=== PATIENT | male | born 1935 | race Caucasian/White ===

== ENCOUNTER 2020-09-12 15:32 | Observation (INO) ==
--- NOTE | 2020-09-12 17:38 | Internal Med History&Physical ---
HPI History of Present Illness Patient information: Note initiated : 09/12/20 at 5:27 pm Service Date, if different from initiated Date: [] Patient: Ildefonso Forman Jr 84 y/o M admitted on 09/12/20 for Pyelonephritis. Chief Complaint: Flank pain due to Kidney stone History of present illness: Mr. Dickson Jarrell is a 84 year old male transferred from [facility] emergency room for management of obstructed kidney stone. Patient has history of kidney stones, hypertension, history of DVT on Apixaban, & CKD III with baseline Cr 1.5 presented to [facility] ED with right flank pain that started yesterday noon. Pain was 7/10 intensity radiated to his groin. It was associated with nausea but no vomiting. Patient denies fever and chills. At [facility] emergency room a CT scan of abdomen and pelvis showed obstructed kidney stone at the right UBJ junction with hydronephrosis. Patient transferred to our facility for urology consultation and cystoscopy. Patient has known history of BPH and kidney stone in the past. His last cystoscopy was October 2019 for right ureteral stone. Review of Systems All systems: reviewed and no additional remarkable complaints except as stated PFSH PFSH All Active Problems Chronic kidney disease (CKD) stage G3a/A3, moderately decreased glomerular filtration rate (GFR) between 45-59 mL/min/1.73 square meter and albuminuria creatinine ratio greater than 300 mg/g (Chronic) Skin cancer (Chronic) Solar elastosis (Chronic) Sebaceous cyst (Chronic) DVT (deep venous thrombosis) (Chronic) Lentigines (Chronic) Actinic keratosis (Chronic) History of prostate surgery (Chronic) History of suprapubic catheter (Chronic) History of hernia repair (Chronic) History of tonsillectomy (Chronic) UTI (urinary tract infection) (Chronic) Gross hematuria (Chronic) Urinary bladder stone (Chronic) Benign hypertension with CKD (chronic kidney disease) stage III (Chronic) Enlarged prostate with lower urinary tract symptoms (LUTS) (Chronic) Vitamin D deficiency (Chronic) Iron deficiency (Chronic) Persistent proteinuria (Chronic) Back pain (Chronic) Inguinal hernia (Chronic) Osteoarthritis (Chronic) BPH (benign prostatic hyperplasia) (Chronic) Benign essential hypertension (Chronic) Hemangioma (Chronic) Polycythemia (Chronic) 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 (Chronic) 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) On warfarin therapy (Chronic) Urethral calculus (Chronic) Edema (Chronic) Cellulitis (Chronic) Cardiomegaly (Chronic) Deep vein thrombosis of left lower extremity (Chronic) Murmur (Chronic) GERD (gastroesophageal reflux disease) (Chronic) Degeneration of lumbar intervertebral disc (Chronic) Carotid atherosclerosis (Chronic) Diastolic heart failure (Chronic) Hydroxyurea adverse reaction (Chronic) PVD (peripheral vascular disease) (Chronic) Foot ulcer (Chronic) History of amputation of toe (Chronic) Leg pain (Chronic) Medical History Actinic keratosis Back pain Benign essential hypertension BPH (benign prostatic hyperplasia) Cardiomegaly Carotid atherosclerosis Cellulitis Deep vein thrombosis of left lower extremity Degeneration of lumbar intervertebral disc Diastolic heart failure DVT (deep venous thrombosis) Edema Foot ulcer GERD (gastroesophageal reflux disease) Gross hematuria Hemangioma History of amputation of toe Bilateral great toes Hydroxyurea adverse reaction 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 Inguinal hernia Lentigines 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 Murmur On warfarin therapy Osteoarthritis Polycythemia PVD (peripheral vascular disease) Sebaceous cyst Skin cancer Solar elastosis Urethral calculus UTI (urinary tract infection) Surgical History History of angioplasty Right Foot History of hernia repair History of prostate surgery History of suprapubic catheter History of tonsillectomy Family History Mother Leukemia Father Stroke Brother Stroke Heart disease Social History marital status: occupational status: retired alcohol intake frequency: does not drink substance use type: does not use MEDS/ALLERGIES Home Medications and Allergies Home Medications Medication Instructions Recorded Confirmed Type atorvastatin 20 mg PO HS 05/13/17 09/12/20 History lisinopril 20 mg PO DAILY 05/13/17 09/12/20 History pantoprazole 40 mg PO QAMAC 05/13/17 09/12/20 History aspirin 325 mg PO DAILY #30 tab 08/02/17 09/12/20 Rx cholecalciferol (vitamin D3) 50 2,000 unit PO QDAY #90 cap 11/29/17 09/12/20 Rx mcg (2,000 unit) capsule apixaban 5 mg tablet 5 mg PO BID tab 03/31/19 09/12/20 History gabapentin 300 mg capsule 300 mg PO BID cap 03/31/19 09/12/20 History hydrochlorothiazide 25 mg tablet 25 mg PO DAILY tab 03/31/19 09/12/20 History hydroxyurea 500 mg capsule 500 mg PO DAILY cap 03/31/19 09/12/20 History tamsulosin 0.4 mg capsule 0.4 mg PO QDAY cap 03/31/19 09/12/20 History docusate sodium 100 mg capsule 100 mg PO QDAY 10/03/19 09/12/20 History finasteride 5 mg tablet 5 mg PO QDAY 10/03/19 09/12/20 History amlodipine 5 mg tablet 5 mg PO BID #180 tab 05/23/20 09/12/20 Rx Allergies Allergy/AdvReac Type Severity Reaction Status Date / Time doxazosin Allergy Severe Unknown Verified 05/23/20 08:48 fish derived Allergy Unknown Unknown Verified 05/23/20 08:48 niacin Allergy Unknown Unknown Verified 05/23/20 08:48 EXAM Constitutional Vitals: Temp Pulse Resp BP Pulse Ox 98.3 F 73 16 134/67 93 09/12/20 15:48 09/12/20 15:48 09/12/20 15:48 09/12/20 15:48 09/12/20 15:48 General appearance: average body habitus, cooperative (Pleasant elderly male in no distress.) and no acute distress Head Head exam: Present atraumatic, normal inspection and normocephalic Eye Eye exam: Present EOMI, normal appearance and PERRL Neck Neck exam: Present full ROM and normal inspection Respiratory Respiratory exam: Present normal respiratory exam and CTAB Cardiovascular Cardiovascular exam: Present normal rate and rhythm, +S1 and +S2; Absent diastolic murmur and systolic murmur GI/Abdominal GI/Abdominal exam: Present normal bowel sounds and soft; Absent hernia, mass, rebound and tenderness Extremities Exam Extremities exam: Present full ROM, normal capillary refill and normal inspection; Absent calf tenderness and joint swelling Back Exam Back exam: Present full ROM Neurological Exam Neurological exam: Present alert, CN II-XII intact, oriented X3 and reflexes normal Psychiatric Psychiatric exam: Present normal affect and normal mood Skin Skin exam: Present dry, normal color and warm A/P Narrative A/P Narrative: 84 years old pleasant male with known history of kidney stone in the past admitted with right flank pain and obstructed kidney stone on the right with hydronephrosis: # Obstructed 9x5mm renal calculi at R UBJ with Mod Hydronephrosis - Pain control, IVF, IV Anbx. Urology consult for cystoscopy and stent placement in the morning #Asymptomatic bacteriuria-UA at [facility] showed positive nitrate and LE and white blood cell. Since going for procedure will cover with IV Rocephin. - WBC 18.5 at [facility] - Follow Ux from [facility]. #History of DVT and peripheral arterial disease. -Continue Eliquis without interruption. Will discuss with Dr. Aguirre the urologist # CKD III with baseline Cr 1.5 - Now Cr is 2.2. Cont IVF and follow BMP. Pt follows by [facility]. # HTN. Resume home medication. # BPH. S/p TURP in past. -Continue Flomax and finasteride. DVT prophylaxis: Continue Eliquis CODE STATUS: Full Plan of care discussed with patient and nursing staff. Time Spent With Patient Time: Total time spent is greater than 50% in coordination of care (as documented) at patient's floor/unit and/or counseling patient: QUALITY VTE Deep Vein Thrombosis/Pulmonary Embolism Present on Admission: No
[2020-09-12] MEDS ORDERED: ACETAMINOPHEN 325 MG TABLET PO PRN (18:33)
[2020-09-12] MEDS ORDERED: ONDANSETRON 4 MG/2 ML VIAL IV PRN (18:33)
[2020-09-12] MEDS ORDERED: HYDROcodone/APAP 5/325MG TABLET PO PRN (18:33)
[2020-09-12] MEDS ORDERED: ONDANSETRON 4 MG ODT TABLET SL PRN (18:38)
[2020-09-12] MEDS ORDERED: CALCIUM CARBONATE 500 MG TAB.CHEW CHEWED PRN (18:38)
[2020-09-12] MEDS ORDERED: HYDROmorphone 1 MG/ML SYRINGE IV PRN (18:38)
[2020-09-12] MEDS ORDERED: cefTRIAXone 1 GM in DEXTROSE 5% IN WATER 50 ML IV SCH (18:40)
[2020-09-12] MEDS: 0.9 % SODIUM CHLORIDE 1,000 ML IV SCH (18:52)
[2020-09-12] MEDS ORDERED: cefTRIAXone 1 GM VIAL ONE (19:16)
[2020-09-12] MEDS: cefTRIAXone 1 GM VIAL IV SCH (19:34)
[2020-09-12] MEDS ORDERED: ATORVASTATIN 20 MG TABLET PO SCH (21:00)
[2020-09-12] MEDS ORDERED: SENNOSIDES 1 TABLET PO SCH (21:00)
[2020-09-12] MEDS: APIXABAN 5 MG TABLET PO SCH (22:00)
[2020-09-12] MEDS: amLODIPine 5 MG TABLET PO SCH (22:00)
[2020-09-12] MEDS: GABAPENTIN 300 MG CAPSULE PO SCH (22:00)
[2020-09-12] MEDS: 0.9 % SODIUM CHLORIDE 10 ML SYRINGE IV SCH (22:00)
[2020-09-12] MEDS: DOCUSATE SODIUM 100 MG CAPSULE PO SCH (22:00)
[2020-09-13] MEDS: 0.9 % SODIUM CHLORIDE 1,000 ML IV SCH ×2 (03:38→13:46)
[2020-09-13] MEDS: 0.9 % SODIUM CHLORIDE 10 ML SYRINGE IV SCH ×2 (05:25→14:03)
[2020-09-13 06:36] LABS: Hematocrit 29.7 % (41.0-55.0); Hemoglobin 9.6 g/dL (13.5-16.5); Mean Cell Volume 119.8 fL (80.0-100.0); Mean Corpuscular HGB Conc 32.3 g/dL (31.0-36.0); Mean Platelet Volume 10.5 fL (7.4-10.4); Platelet Count 383 K/mcL (140-440); RBC 2.48 M/mcL (4.50-5.90)
[2020-09-13 07:18] LABS: Blood Urea Nitrogen 55 mg/dL (8-23); Calcium 8.1 mg/dL (8.6-10.4); Carbon Dioxide 22 mmol/L (22-30); Chloride 104 mmol/L (96-108); Glomerular Filtration Rate 19; Glucose 111 mg/dL (70-105)
[2020-09-13] MEDS ORDERED: PANTOPRAZOLE 40 MG TABLET PO SCH (07:30)
[2020-09-13 08:10] LABS: Anisocytosis 2+ (None Seen); Eosinophils % (Manual) 1 % (0-7); Lymphocytes % 1 % (15-49); Macrocytosis 4+ (None Seen); Monocytes % (Manual) 1 % (1-12); Platelet Estimate NORMAL (Normal); RBC Morphology ABNORMAL (Normal); Segmented Neutrophils % 97 % (38-78)
[2020-09-13] MEDS: amLODIPine 5 MG TABLET PO SCH (08:21)
--- NOTE | 2020-09-13 08:46 | General Surgery Consult Note ---
HPI Data of Consult Consult date: 09/13/20 Requesting physician: Kvng Sandhu Primary Care Provider: Zaida Delgado Consult Narrative Patient Information: Note initiated : 09/13/20 at 8:42 am Service Date, if different from initiated Date: [] Patient: Ildefonso Forman Jr 84 y/o M admitted on 09/12/20 for Pyelonephritis. Chief Complaint: [] Chief complaint: Right flank pain Reason for consult: Same cc:: CC: Kvng Sandhu This 84-year-old male has a history of multiple stones requiring surgical intervention in the past. He has frequently been lost to follow-up in the inte rim between neck acute interventions. He was stented for a distal 4 mm stone in October 2018 but treated elsewhere. There is a note of a bladder stone in October 2019 with no record of what had been done for that and he does not recall. In the emergency room he had an elevated white count. Prior to transfer from [facility] the message I received was that he had sign of infection in the urine and was transferred here because of infection and stone. In reviewing what records we have access to he had an extremely large prostate in the past creating difficulties in catheterizing the ureter. The CT shows a 5 by 9 mm ureteropelvic junction stone. He has a 14,000 white count with a history of chronic kidney disease. His current BUN is 55 with a creatinine of 2.8 and a GFR of 19. His uric acid is 11.3 and there is mention in old records of radiolucent stones. He was transferred here for IV antibiotics and stenting if possible. PFSH PFSH All Active Problems (Updated 09/13/20 @ 08:57 by Herber Hernandez MD) Ureteral stone (Acute) Chronic kidney disease (CKD) stage G3a/A3, moderately decreased glomerular filtration rate (GFR) between 45-59 mL/min/1.73 square meter and albuminuria creatinine ratio greater than 300 mg/g (Chronic) Skin cancer (Chronic) Solar elastosis (Chronic) Sebaceous cyst (Chronic) DVT (deep venous thrombosis) (Chronic) Lentigines (Chronic) Actinic keratosis (Chronic) History of prostate surgery (Chronic) History of suprapubic catheter (Chronic) History of hernia repair (Chronic) History of tonsillectomy (Chronic) UTI (urinary tract infection) (Chronic) Gross hematuria (Chronic) Urinary bladder stone (Chronic) Benign hypertension with CKD (chronic kidney disease) stage III (Chronic) Enlarged prostate with lower urinary tract symptoms (LUTS) (Chronic) Vitamin D deficiency (Chronic) Iron deficiency (Chronic) Persistent proteinuria (Chronic) Back pain (Chronic) Inguinal hernia (Chronic) Osteoarthritis (Chronic) BPH (benign prostatic hyperplasia) (Chronic) Benign essential hypertension (Chronic) Hemangioma (Chronic) Polycythemia (Chronic) 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 (Chronic) 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) On warfarin therapy (Chronic) Urethral calculus (Chronic) Edema (Chronic) Cellulitis (Chronic) Cardiomegaly (Chronic) Deep vein thrombosis of left lower extremity (Chronic) Murmur (Chronic) GERD (gastroesophageal reflux disease) (Chronic) Degeneration of lumbar intervertebral disc (Chronic) Carotid atherosclerosis (Chronic) Diastolic heart failure (Chronic) Hydroxyurea adverse reaction (Chronic) PVD (peripheral vascular disease) (Chronic) Foot ulcer (Chronic) History of amputation of toe (Chronic) Leg pain (Chronic) Medical History Actinic keratosis Back pain Benign essential hypertension BPH (benign prostatic hyperplasia) Cardiomegaly Carotid atherosclerosis Cellulitis Deep vein thrombosis of left lower extremity Degeneration of lumbar intervertebral disc Diastolic heart failure DVT (deep venous thrombosis) Edema Foot ulcer GERD (gastroesophageal reflux disease) Gross hematuria Hemangioma History of amputation of toe Bilateral great toes Hydroxyurea adverse reaction 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 Inguinal hernia Lentigines 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 Murmur On warfarin therapy Osteoarthritis Polycythemia PVD (peripheral vascular disease) Sebaceous cyst Skin cancer Solar elastosis Urethral calculus UTI (urinary tract infection) Surgical History History of angioplasty Right Foot History of hernia repair History of prostate surgery History of suprapubic catheter History of tonsillectomy Family History Mother Leukemia Father Stroke Brother Stroke Heart disease Social History marital status: occupational status: retired alcohol intake frequency: does not drink substance use type: does not use MEDS/ALLERGIES Home Medications and Allergies Home Medications Medication Instructions Recorded Confirmed Type atorvastatin 20 mg PO HS 05/13/17 09/12/20 History lisinopril 20 mg PO DAILY 05/13/17 09/12/20 History pantoprazole 40 mg PO QAMAC 05/13/17 09/12/20 History aspirin 325 mg PO DAILY #30 tab 08/02/17 09/12/20 Rx cholecalciferol (vitamin D3) 50 2,000 unit PO QDAY #90 cap 11/29/17 09/12/20 Rx mcg (2,000 unit) capsule apixaban 5 mg tablet 5 mg PO BID tab 03/31/19 09/12/20 History gabapentin 300 mg capsule 300 mg PO BID cap 03/31/19 09/12/20 History hydrochlorothiazide 25 mg tablet 25 mg PO DAILY tab 03/31/19 09/12/20 History hydroxyurea 500 mg capsule 500 mg PO DAILY cap 03/31/19 09/12/20 History tamsulosin 0.4 mg capsule 0.4 mg PO QDAY cap 03/31/19 09/12/20 History docusate sodium 100 mg capsule 100 mg PO QDAY 10/03/19 09/12/20 History finasteride 5 mg tablet 5 mg PO QDAY 10/03/19 09/12/20 History amlodipine 5 mg tablet 5 mg PO BID #180 tab 05/23/20 09/12/20 Rx Allergies Allergy/AdvReac Type Severity Reaction Status Date / Time doxazosin Allergy Unknown Unknown Verified 09/12/20 19:19 fish derived Allergy Unknown Unknown Verified 05/23/20 08:48 niacin Allergy Unknown Unknown Verified 05/23/20 08:48 Physical Examination Vital Signs Vital signs: Temp Pulse Resp BP Pulse Ox 98.8 F 58 L 20 127/72 90 09/13/20 07:08 09/13/20 07:08 09/13/20 07:08 09/13/20 07:08 09/13/20 07:08 Eyes Eye exam: PERRL ENT ENT exam: normal pinna and normal nares Head Head exam IM: Present normal inspection Cardiovascular Cardiovascular exam IM: Present normal rate and rhythm Respiratory Respiratory exam: normal respiratory effort Abdomen Abdomen: Present soft and non tender Integumentary Integumentary: Present no rash Musculoskeletal Musculoskeletal: Present normal gait Results Labs Result diagrams: 09/13/20 05:24 09/13/20 05:24 Labs: Abnormal lab results 09/13/20 09/13/20 Range/Units 05:24 05:24 WBC 14.0 H (4.5-11.0) K/mcL RBC 2.48 L (4.50-5.90) M/mcL Hgb 9.6 L (13.5-16.5) g/dL Hct 29.7 L (41.0-55.0) % MCV 119.8 H (80.0-100.0) fL MCH 38.7 H (26.0-34.0) pg RDW 18.0 H (11.5-14.5) % MPV 10.5 H (7.4-10.4) fL Seg Neutrophils % 97 H (38-78) % Lymphocytes % 1 L (15-49) % RBC Morphology Abnormal A (Normal) Anisocytosis 2+ A (None Seen) Macrocytosis 4+ A (None Seen) BUN 55 H (8-23) mg/dL Creatinine 2.8 H (0.7-1.2) mg/dL Glucose 111 H (70-105) mg/dL Calcium 8.1 L (8.6-10.4) mg/dL Diabetes panel 09/13/20 Range/Units 05:24 Sodium 137 (133-145) mmol/L Potassium 5.0 (3.3-5.1) mmol/L Chloride 104 (96-108) mmol/L Carbon Dioxide 22 (22-30) mmol/L BUN 55 H (8-23) mg/dL Creatinine 2.8 H (0.7-1.2) mg/dL Glucose 111 H (70-105) mg/dL Calcium 8.1 L (8.6-10.4) mg/dL Calcium panel 09/13/20 Range/Units 05:24 Calcium 8.1 L (8.6-10.4) mg/dL Pituitary panel 09/13/20 Range/Units 05:24 Sodium 137 (133-145) mmol/L Potassium 5.0 (3.3-5.1) mmol/L Chloride 104 (96-108) mmol/L Carbon Dioxide 22 (22-30) mmol/L BUN 55 H (8-23) mg/dL Creatinine 2.8 H (0.7-1.2) mg/dL Glucose 111 H (70-105) mg/dL Calcium 8.1 L (8.6-10.4) mg/dL Adrenal panel 09/13/20 Range/Units 05:24 Sodium 137 (133-145) mmol/L Potassium 5.0 (3.3-5.1) mmol/L Chloride 104 (96-108) mmol/L Carbon Dioxide 22 (22-30) mmol/L BUN 55 H (8-23) mg/dL Creatinine 2.8 H (0.7-1.2) mg/dL Glucose 111 H (70-105) mg/dL Calcium 8.1 L (8.6-10.4) mg/dL All other labs normal. A/P Assessment and plan (1) Ureteral stone: Status: Acute Comment: Cystoscopy with right ureteral stent placement if possible. If cannot, will transfer for percutaneous nephrostomy (2) Chronic kidney disease (CKD) stage G3a/A3, moderately decreased glomerular filtration rate (GFR) between 45-59 mL/min/1.73 square meter and albuminuria creatinine ratio greater than 300 mg/g: Status: Chronic (3) BPH (benign prostatic hyperplasia): Status: Chronic (4) UTI (urinary tract infection): Status: Chronic Comment: IV antibiotics Time Spent With Patient Time: Total time spent is greater than 50% in coordination of care (as documented) at patient's floor/unit and/or counseling patient:
[2020-09-13] MEDS: DOCUSATE SODIUM 100 MG CAPSULE PO SCH (08:55)
[2020-09-13] MEDS ORDERED: ASPIRIN 325 MG ENTERIC COATED TABLET PO SCH (09:00)
[2020-09-13] MEDS ORDERED: HYDROXYUREA 500 MG CAPSULE PO SCH (09:00)
[2020-09-13] MEDS ORDERED: LISINOPRIL 20 MG TABLET PO SCH (09:00)
[2020-09-13] MEDS ORDERED: DOCUSATE SODIUM 100 MG CAPSULE PO SCH (09:00)
[2020-09-13] MEDS ORDERED: TAMSULOSIN 0.4 MG CAPSULE PO SCH (09:00)
[2020-09-13] MEDS ORDERED: FINASTERIDE 5 MG TABLET PO SCH (09:00)
[2020-09-13] MEDS ORDERED: SCOPOLAMINE 1 PATCH PATCH TOPICAL PRN (09:01)
[2020-09-13] MEDS: cefTRIAXone 1 GM VIAL IV SCH (10:00)
--- NOTE | 2020-09-13 10:39 | EKG ---
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 Measurements Intervals [place] Rate: 55 P: 4 MI: 240 QRS: -15 QRSD: 86 T: 71 QT: 416 QTc: 398 Interpretive Statements SINUS BRADYCARDIA LVH BY VOLTAGE FIRST-DEGREE A-V BLOCK Since previous ECG of 08-02-2017, NSC ABNORMAL Electronically Signed On 09-13-2020 10:39:10 PDT by Bennie Elena M.D. /store/[email or web address]/[id number]
[2020-09-13] MEDS ORDERED: DEXAMETHASONE 10 MG/ML VIAL ONE (12:13)
[2020-09-13] MEDS ORDERED: PROPOFOL 200 MG/20 ML VIAL IV ONE (12:13)
[2020-09-13] MEDS ORDERED: KETAMINE 50 MG/ML ML ONE (12:13)
[2020-09-13] MEDS ORDERED: GLYCOPYRROLATE 0.2 MG/ML VIAL IV ONE (12:13)
[2020-09-13] MEDS ORDERED: fentaNYL 100 MCG/2 ML VIAL IV ONE (12:13)
[2020-09-13] MEDS ORDERED: ONDANSETRON 4 MG/2 ML VIAL ONE (12:13)
[2020-09-13] MEDS ORDERED: MIDAZOLAM 2 MG/2 ML VIAL ONE (12:13)
[2020-09-13] MEDS ORDERED: LIDOCAINE HCL/PF 100 MG/5 ML SYRINGE IV ONE (12:13)
[2020-09-13] MEDS ORDERED: IOVERSOL 20 ML VIAL IJ ONE (12:28)
[2020-09-13] MEDS ORDERED: ONDANSETRON 4 MG/2 ML VIAL IV PRN (12:45)
[2020-09-13] MEDS ORDERED: ACETAMINOPHEN 1,000 MG/100 ML BAG IV ONE (12:45)
[2020-09-13] MEDS ORDERED: MEPERIDINE 25 MG/ML VIAL IV PRN (12:45)
[2020-09-13] MEDS ORDERED: IPRATROPIUM/ALBUTEROL 3 ML AMPUL.NEB NEB PRN (12:45)
[2020-09-13] MEDS ORDERED: LACTATED RINGERS 1,000 ML IV SCH (12:45)
[2020-09-13] MEDS ORDERED: fentaNYL 100 MCG/2 ML VIAL IV PRN (12:45)
--- NOTE | 2020-09-13 13:05 | Brief Operative Note ---
Brief Operative Note Date of procedure: 09/13/20 Pre-op diagnosis: Infected right stone Post-op diagnosis: other (Same with enlarged prostate) Procedure: Cystoscopy and attempted stent placement with stone pushback Grafts/Implants: No Anesthesia: GETA Findings: Unable to identify right ureteral orifice Complications: none Surgeon: Herber Hernandez Estimated blood loss (cc): 0 Tourniquet Time (Minutes): 0 Specimens Removed/Pathology: none sent Condition: stable Disposition: PACU
--- NOTE | 2020-09-13 13:13 | Operative Note ---
Operative Note Operative Note: Preop diagnosis--right UPJ stone with infection Surgeon--Herber Hernandez Operation performed--cystoscopy with attempted right stent placement Postop diagnosis--unable to identify right ureteral orifice Date of operation and dictation--September 13, 2020 Complications--none Specimen--none Blood loss--none Drain--none Indication--this 84-year-old male has a history of stones and an extremely large prostate. He has undergone a variety of different surgical procedures in a variety of different locations over the years. From 2 years ago there was a note stating that he had a right sided stone in the distal ureter but the operating surgeon was unable to access the orifice. This was because of an extremely large prostate with J hooking of the distal ureters. He presented to the emergency room yesterday with right flank and right lower quadrant abdominal pain with nausea and was found to have an obstructing UPJ stone measuring 5 x 9 mm with hydronephrosis. He is currently on Eliquis. The patient was transferred here from [facility] because he did not have a urologist. We tax intern do not have an interventional radiologist. He is brought to the operating room at this time to try and push the stone back and stent him. Description--the patient was placed on the operating table in a supine position and a timeout was called at which time we confirmed the patient, procedure, position and presence of antibiotic. Following satisfactory induction of general anesthesia he was prepped and draped in a lithotomy position. A 21 Ukrainian cystoscope was advanced under direct vision. The urethra was normal. Sphincter appeared normal. The prostate was extremely large with trilobar enlargement. There was evidence of previous TURP with a very tortuous proximal prostatic urethra. There was no identifiable trigone or orifice on either side. He had a heavily trabeculated bladder with cellule formation. The whole area was examined multiple times and neither orifice could be identified and in fact there was not even a suggestion that it might be there but just difficult to see. The procedure was discontinued because of failure to identify an orifice.
[2020-09-13] MEDS: GABAPENTIN 300 MG CAPSULE PO SCH (13:37)
[2020-09-13] MEDS: APIXABAN 5 MG TABLET PO SCH (13:38)
--- NOTE | 2020-09-13 14:10 | Internal Med Progress Note ---
SUBJECTIVE Subjective Patient information: Note initiated : 09/13/20 at 2:06 pm Service Date, if different from initiated Date: Patient: Ildefonso Forman Jr 84 y/o M admitted on 09/12/20 for Pyelonephritis. Chief Complaint: Flank pain Interval history: Patient is comfortable. Denies chest pain shortness of breath nausea vomiting. His pain is well controlled with current treatment Constitutional Vitals: Vital Signs Temp Pulse Resp BP Pulse Ox 99.3 F H 61 12 129/60 92 09/13/20 13:25 09/13/20 13:25 09/13/20 13:25 09/13/20 13:25 09/13/20 13:25 Period Temp Pulse Resp BP Sys/Sinha Pulse Ox Last 24 Hr 97.7 F-99.8 F 58-73 11-20 108-146/57-76 90-95 Intake and Output 09/13/20 09/13/20 09/13/20 05:59 13:59 21:59 Intake Total 1425 2020 Output Total 250 100 Balance 1175 1920 Intake & Output: Intake & Output 09/13/20 09/13/20 09/13/20 05:59 13:59 21:59 Intake Total 1425 2020 Output Total 250 100 Balance 1175 1920 Intake: IV 1000 1100 Sodium Chloride 0.9% 1,000 ml @ 1000 1000 125 mls/hr IV .Q8H [facility] Rx#: [id number] Oral 425 IV - Manual Only 920 Output: Void Amount 250 100 Other: Urine Appearance Clear Small Blood Clots Urine Color Bright Yellow Additional findings Additional findings: General: Pleasant elderly male in no distress. Awake alert oriented x3. No apparent distress HEENT: PERRLA, moist mucous membrane. Anicteric sclera Lungs: Clear to auscultation bilaterally. No crackles rhonchi or rales. Cardiovascular: Regular rate and rhythm. S1 + S2, no murmur gallop rub. No peripheral edema. No JVD GI: Abdomen soft, nontender, positive bowel sounds. No hepatosplenomegaly. No rebound tenderness. 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 Cranial nerves II through XII 12 grossly intact. Psychiatric: Normal mood and affect OBJ DATA Labs CBC & Chem 7: 09/13/20 05:24 09/13/20 05:24 Labs: Abnormal Lab Results 09/13/20 09/13/20 05:24 05:24 WBC 14.0 H RBC 2.48 L Hgb 9.6 L Hct 29.7 L MCV 119.8 H MCH 38.7 H RDW 18.0 H MPV 10.5 H Seg Neutrophils % 97 H Lymphocytes % 1 L RBC Morphology Abnormal A Anisocytosis 2+ A Macrocytosis 4+ A BUN 55 H Creatinine 2.8 H Glucose 111 H Calcium 8.1 L Meds: Medications Acetaminophen (Acetaminophen 325 Mg Tablet) 650 mg PO Q6HP PRN; Protocol PRN Reason: Per Pain Protocol/Fever > 101 Hydrocodone Bitart/Acetaminophen (Hydrocodone/Apap 5/325mg Tablet) 1 tab PO Q4HP PRN; Protocol PRN Reason: Per Pain Protocol Last Admin: 09/12/20 21:59 Dose: 1 tab Documented by: Amlodipine Besylate (Amlodipine 5 Mg Tablet) 5 mg PO BID [facility] Last Admin: 09/13/20 08:21 Dose: 5 mg Documented by: Apixaban (Apixaban 5 Mg Tablet) 5 mg PO BID [facility] Last Admin: 09/13/20 13:38 Dose: 5 mg Documented by: Aspirin (Aspirin 325 Mg Enteric Coated Tablet) 325 mg PO DAILY [facility] Last Admin: 09/13/20 13:37 Dose: 325 mg Documented by: Atorvastatin Calcium (Atorvastatin 20 Mg Tablet) 20 mg PO HS [facility] Last Admin: 09/12/20 22:00 Dose: 20 mg Documented by: Calcium Carbonate/Glycine (Calcium Carbonate 500 Mg Tab.Chew) 1,000 mg CHEWED Q4HP PRN PRN Reason: Dyspepsia Ceftriaxone Sodium (Ceftriaxone 1 Gm Vial) 1 gm IV Q24H [facility] Last Admin: 09/13/20 10:00 Dose: 1 gm Documented by: Docusate Sodium (Docusate Sodium 100 Mg Capsule) 100 mg PO BID [facility] Last Admin: 09/13/20 08:55 Dose: 100 mg Documented by: Finasteride (Finasteride 5 Mg Tablet) 5 mg PO QDAY [facility] Last Admin: 09/13/20 08:22 Dose: 5 mg Documented by: Gabapentin (Gabapentin 300 Mg Capsule) 300 mg PO BID [facility] Last Admin: 09/13/20 13:37 Dose: 300 mg Documented by: Hydromorphone HCl (Hydromorphone 1 Mg/Ml Syringe) 1 mg IV Q4HP PRN; Protocol PRN Reason: Per Pain Protocol Last Admin: 09/13/20 03:42 Dose: 1 mg Documented by: Hydroxyurea (Hydroxyurea 500 Mg Capsule) 500 mg PO DAILY [facility] Last Admin: 09/13/20 13:44 Dose: 500 mg Documented by: Sodium Chloride (Sodium Chloride 0.9%) 1,000 mls @ 125 mls/hr IV .Q8H [facility] Last Admin: 09/13/20 13:46 Dose: 125 mls/hr Documented by: Lisinopril (Lisinopril 20 Mg Tablet) 20 mg PO DAILY [facility] Last Admin: 09/13/20 13:37 Dose: 20 mg Documented by: Ondansetron HCl (Ondansetron 4 Mg/2 Ml Vial) 4 mg IV Q6HP PRN PRN Reason: Nausea And Vomiting Ondansetron HCl (Ondansetron 4 Mg Odt Tablet) 4 mg SL Q6HP PRN PRN Reason: Nausea And Vomiting Pantoprazole Sodium (Pantoprazole 40 Mg Tablet) 40 mg PO QAMAC [facility] Last Admin: 09/13/20 06:58 Dose: 40 mg Documented by: Senna (Sennosides 1 Tablet) 2 tab PO HS [facility] Last Admin: 09/12/20 22:00 Dose: 2 tab Documented by: Sodium Chloride (0.9 % Sodium Chloride 10 Ml Syringe) 10 ml IV Q8 [facility] Last Admin: 09/13/20 14:03 Dose: Not Given Documented by: Tamsulosin HCl (Tamsulosin 0.4 Mg Capsule) 0.4 mg PO QDAY [facility] Last Admin: 09/13/20 13:38 Dose: 0.4 mg Documented by: A/P Narrative A/P Narrative: 84 years old pleasant male with known history of kidney stone in the past admitted with right flank pain and obstructed kidney stone on the right with hydronephrosis: # Obstructed 9x5mm renal calculi at [facility] with Mod Hydronephrosis - Cont Pain control, IVF, IV Anbx. - performed Cystoscopy and attempted stent placement with stone pushback and he was Unable to identify right ureteral orifice - Plan for Transferring pt to other facility. helping with this. For now cont current care. #Asymptomatic bacteriuria-UA at [facility] showed positive nitrate and LE and white blood cell. Since going for procedure will cover with IV Rocephin. - WBC 18.5 at [facility] - Follow Ux from [facility]. #History of DVT and peripheral arterial disease. -Continue Eliquis without interruption. # CKD III with baseline Cr 1.5. Up to 2.8. Not peaked yet. - Dc Lisinopril. - Cont IVF and follow BMP. Pt follows by Ink Technician. # HTN. Hold Lisinopril due to JOHNNY. # BPH. S/p TURP in past. -Continue Flomax and finasteride. DVT prophylaxis: Continue Eliquis CODE STATUS: Full Plan of care discussed with patient and nursing staff. Time Spent With Patient Time: Total time spent is greater than 50% in coordination of care (as documented) at patient's floor/unit and/or counseling patient: QUALITY VTE Deep Vein Thrombosis/Pulmonary Embolism Present on Admission: No
--- NOTE | 2020-09-13 15:41 | Discharge Summary ---
Discharge Provider Provider Patient information: Note initiated : 09/13/20 at 3:38 pm Service Date, if different from initiated Date: [] Patient: Ildefonso Forman Jr 84 y/o M admitted on 09/12/20 for Pyelonephritis. Chief Complaint: Flank pain Date of admission: 09/12/20 15:48 Discharge date: 09/13/20 Primary care physician: Zaida Delgado Discharge Meds Discharge Medications Home Medications atorvastatin 20 mg PO HS 05/13/17 [History Confirmed 09/12/20 Last Taken 09/12/20 08:00] lisinopril 20 mg PO DAILY 05/13/17 [History Confirmed 09/12/20 Last Taken 09/12/20 08:00] pantoprazole 40 mg PO QAMAC 05/13/17 [History Confirmed 09/12/20 Last Taken 09/12/20 08:00] aspirin 325 mg PO DAILY #30 tab 08/02/17 [Rx Confirmed 09/12/20 Last Taken 09/12/20 08:00] cholecalciferol (vitamin D3) 50 mcg (2,000 unit) capsule 2,000 unit PO QDAY #90 cap 11/29/17 [Rx Confirmed 09/12/20 Last Taken 09/12/20 08:00] apixaban 5 mg tablet 5 mg PO BID tab 03/31/19 [History Confirmed 09/12/20 Last Taken 09/12/20 08:00] gabapentin 300 mg capsule 300 mg PO BID cap 03/31/19 [History Confirmed 09/12/20 Last Taken 09/12/20 08:00] hydrochlorothiazide 25 mg tablet 25 mg PO DAILY tab 03/31/19 [History Confirmed 09/12/20 Last Taken 09/12/20 08:00] hydroxyurea 500 mg capsule 500 mg PO DAILY cap 03/31/19 [History Confirmed 09/12/20 Last Taken 09/12/20 08:00] tamsulosin 0.4 mg capsule 0.4 mg PO QDAY cap 03/31/19 [History Confirmed 09/12/20 Last Taken 09/12/20 08:00] docusate sodium 100 mg capsule 100 mg PO QDAY 10/03/19 [History Confirmed 09/12/20 Last Taken 09/12/20 08:00] finasteride 5 mg tablet 5 mg PO QDAY 07/21/20 [History Confirmed 09/12/20 Last Taken 09/12/20 08:00] amlodipine 5 mg tablet 5 mg PO BID #180 tab 05/23/20 [Rx Confirmed 09/12/20 Last Taken 09/12/20 08:00] COURSE Hospital Course Hospital course: 84 years old pleasant male with known history of kidney stone in the past admitted with right flank pain and obstructed kidney stone on the right with hydronephrosis:. Hospital course is as following. # Obstructed 9x5mm renal calculi at [facility] with Mod Hydronephrosis - Cont Pain control, IVF, IV Anbx. - performed Cystoscopy and attempted stent placement with stone pushb ack and he was Unable to identify right ureteral orifice -Patient transferred to [place] under care of urologist Dr. García for further urological procedure #History of DVT and peripheral arterial disease. Status post lower extremity stent by Dr. Reji Denis at [facility] -Continue Eliquis without interruption. -If need to stop Eliquis this should be bridged by heparin drip to decrease risk of blood clots and stent thrombosis. #Asymptomatic bacteriuria-UA at [facility] showed positive nitrate and LE and white blood cell. Since going for procedure will cover with IV Rocephin. - WBC 18.5 at [facility] - Follow Ux from [facility]. # CKD III with baseline Cr 1.5. Up to 2.8. Not peaked yet. - Dc Lisinopril. - Cont IVF and follow BMP. Pt follows by Client Leader. # HTN. Hold Lisinopril due to JOHNNY. # BPH. S/p TURP in past. -Continue Flomax and finasteride. DVT prophylaxis: Continue Eliquis CODE STATUS: Full Plan of care discussed with patient and nursing staff. Discharge diagnosis: Infected obstructed kidney stone with hydronephrosis Time Spent with Patient Time attestation: Total time spent providing and/or coordinating discharge services: EXAM Constitutional Vitals: Temp Pulse Resp BP Pulse Ox 99.3 F H 61 12 129/60 92 09/13/20 13:25 09/13/20 13:25 09/13/20 13:25 09/13/20 13:25 09/13/20 13:25 General appearance: cooperative Additional findings Additional findings: Pleasant elderly male in no distress. Awake alert oriented x3. No apparent distress HEENT: PERRLA, moist mucous membrane. Anicteric sclera Lungs: Clear to auscultation bilaterally. No crackles rhonchi or rales. Cardiovascular: Regular rate and rhythm. S1 + S2, no murmur gallop rub. No peripheral edema. No JVD GI: Abdomen soft, nontender, positive bowel sounds. No hepatosplenomegaly. No rebound tenderness. 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 Cranial nerves II through XII 12 grossly intact. Psychiatric: Normal mood and affect Discharge Data Data Completed and Pending Labs on day of discharge: Labs from last 24 hours 09/13/20 09/13/20 05:24 05:24 WBC 14.0 H RBC 2.48 L Hgb 9.6 L Hct 29.7 L MCV 119.8 H MCH 38.7 H MCHC 32.3 RDW 18.0 H Plt Count 383 MPV 10.5 H Seg Neutrophils % 97 H Lymphocytes % 1 L Monocytes % (Manual) 1 Eosinophils % (Manual) 1 Platelet Estimate Normal RBC Morphology Abnormal A Anisocytosis 2+ A Macrocytosis 4+ A Sodium 137 Potassium 5.0 Chloride 104 Carbon Dioxide 22 Anion Gap 11.0 BUN 55 H Creatinine 2.8 H GFR Calculation 19 Glucose 111 H Calcium 8.1 L Discharge Plan Patient/Caregiver Discharge Instructions Activity: increase activity as tolerated Diet: Low Sodium (2gm) Prescriptions: Continued cholecalciferol (vitamin D3) 2,000 unit capsule 2,000 unit PO QDAY Qty: 90 RF: 4 tamsulosin [Flomax] 0.4 mg capsule 0.4 mg PO QDAY RF: 0 apixaban 5 mg tablet 5 mg PO BID RF: 0 finasteride 5 mg tablet 5 mg PO QDAY RF: 0 docusate sodium 100 mg capsule 100 mg PO QDAY RF: 0 amlodipine 5 mg tablet 5 mg PO BID Qty: 180 RF: 4 atorvastatin 20 MG tablet 20 mg PO HS RF: 0 lisinopril 20 MG tablet 20 mg PO DAILY RF: 0 pantoprazole 40 MG tablet 40 mg PO QAMAC RF: 0 gabapentin 300 mg capsule 300 mg PO BID RF: 0 hydroxyurea 500 mg capsule 500 mg PO DAILY RF: 0 hydrochlorothiazide 25 mg tablet 25 mg PO DAILY RF: 0 aspirin 325 MG tablet 325 mg PO DAILY Qty: 30 RF: 0 Follow Up Plan Patient Disposition: Xfer Acute [facility] Discharge Orders: Discharge Order (Routine); Ordered 09/13/20 Ordered By: Kvng AMBROSIO VTE Deep Vein Thrombosis/Pulmonary Embolism Present on Admission: No
== END 2020-09-13 16:57 | disposition short-term general hospital (02) ==
LOC: MEDSUR → PREINTOOBSV 15:48
PROVIDERS: ADMIT Internal Medicine; ATTEND Internal Medicine

== ENCOUNTER 2020-09-20 13:17 | Inpatient (IN) ==
--- NOTE | 2020-09-20 14:37 | Emergency Department Note ---
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 He underwent attempted cystoscopy and stent placement with Dr. Hernandez, and he was unable to push the stone back. The patient was subsequently transferred to [facility] for nephrostomy tube placement and antibiotics. The patient presents today with concerns of not urinating. The nephrostomy tube is draining well. The patient has no flank pain, no abdominal pain, no nausea or vomiting. He states that he has been urinating well up until this morning. A bladder scan showed 100 cc in the bladder here in the ER. They are concerned that the other kidney may be obstructed. Patient is on daily Flomax and is finishing an oral course of Septra DS tomorrow. They have an appointment Dr. Hernandez on Wednesday. Related Data Home Medications Medication Instructions Recorded Confirmed atorvastatin 20 mg PO HS 05/13/17 09/12/20 lisinopril 20 mg PO DAILY 05/13/17 09/12/20 pantoprazole 40 mg PO QAMAC 05/13/17 09/12/20 apixaban 5 mg tablet 5 mg PO BID tab 03/31/19 09/12/20 gabapentin 300 mg capsule 300 mg PO BID cap 03/31/19 09/12/20 hydrochlorothiazide 25 mg tablet 25 mg PO DAILY tab 03/31/19 09/12/20 hydroxyurea 500 mg capsule 500 mg PO DAILY cap 03/31/19 09/12/20 tamsulosin 0.4 mg capsule 0.4 mg PO QDAY cap 03/31/19 09/12/20 docusate sodium 100 mg capsule 100 mg PO QDAY 10/03/19 09/12/20 finasteride 5 mg tablet 5 mg PO QDAY 10/03/19 09/12/20 Previous Rx's Medication Instructions Recorded aspirin 325 mg PO DAILY #30 tab 08/02/17 cholecalciferol (vitamin D3) 50 2,000 unit PO QDAY #90 cap 11/29/17 mcg (2,000 unit) capsule amlodipine 5 mg tablet 5 mg PO BID #180 tab 05/23/20 Allergies Allergy/AdvReac Type Severity Reaction Status Date / Time doxazosin Allergy Unknown Unknown Verified 09/12/20 19:19 fish derived Allergy Unknown Unknown Verified 05/23/20 08:48 niacin Allergy Unknown Unknown Verified 05/23/20 08:48 Review of Systems ROS ROS Narrative: Narrative: All systems ED: reviewed and negative except as stated. PFSH Narrative Patient History Narrative: Narrative: Medical/Surgical/Family History All Active Problems Ureteral stone (Acute) Chronic kidney disease (CKD) stage G3a/A3, moderately decreased glomerular filtration rate (GFR) between 45-59 mL/min/1.73 square meter and albuminuria creatinine ratio greater than 300 mg/g (Chronic) Skin cancer (Chronic) Solar elastosis (Chronic) Sebaceous cyst (Chronic) DVT (deep venous thrombosis) (Chronic) Lentigines (Chronic) Actinic keratosis (Chronic) History of prostate surgery (Chronic) History of suprapubic catheter (Chronic) History of hernia repair (Chronic) History of tonsillectomy (Chronic) UTI (urinary tract infection) (Chronic) Gross hematuria (Chronic) Urinary bladder stone (Chronic) Benign hypertension with CKD (chronic kidney disease) stage III (Chronic) Enlarged prostate with lower urinary tract symptoms (LUTS) (Chronic) Vitamin D deficiency (Chronic) Iron deficiency (Chronic) Persistent proteinuria (Chronic) Back pain (Chronic) Inguinal hernia (Chronic) Osteoarthritis (Chronic) BPH (benign prostatic hyperplasia) (Chronic) Benign essential hypertension (Chronic) Hemangioma (Chronic) Polycythemia (Chronic) 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 (Chronic) 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) On warfarin therapy (Chronic) Urethral calculus (Chronic) Edema (Chronic) Cellulitis (Chronic) Cardiomegaly (Chronic) Deep vein thrombosis of left lower extremity (Chronic) Murmur (Chronic) GERD (gastroesophageal reflux disease) (Chronic) Degeneration of lumbar intervertebral disc (Chronic) Carotid atherosclerosis (Chronic) Diastolic heart failure (Chronic) Hydroxyurea adverse reaction (Chronic) PVD (peripheral vascular disease) (Chronic) Foot ulcer (Chronic) History of amputation of toe (Chronic) Leg pain (Chronic) Medical History Actinic keratosis Back pain Benign essential hypertension BPH (benign prostatic hyperplasia) Cardiomegaly Carotid atherosclerosis Cellulitis Deep vein thrombosis of left lower extremity Degeneration of lumbar intervertebral disc Diastolic heart failure DVT (deep venous thrombosis) Edema Foot ulcer GERD (gastroesophageal reflux disease) Gross hematuria Hemangioma History of amputation of toe Bilateral great toes Hydroxyurea adverse reaction 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 Inguinal hernia Lentigines snf current use of anticoagulant Murmur On warfarin therapy Osteoarthritis Polycythemia PVD (peripheral vascular disease) Sebaceous cyst Skin cancer Solar elastosis Urethral calculus UTI (urinary tract infection) IV antibiotics Surgical History History of angioplasty Right Foot History of hernia repair History of prostate surgery History of suprapubic catheter History of tonsillectomy Family History Mother Leukemia Father Stroke Brother Stroke Heart disease Social History Smoking Status: Never smoker Alcohol Intake Frequency: does not drink Substance Use: does not use Exam Narrative Narrative: General: AOx3, NAD, nontoxic appearing. Pleasant and conversant. HEENT: PERRLA, EOMI, normocephalic. Moist mucous membranes. Normal facies and normal dentition. Return: No respiratory distress. Unlabored breathing. Heart: Regular rate and rhythm, no murmurs/clicks/rubs. Abdomen: Mild right lower quadrant tenderness, Non distended, normal bowel tones. No organomegaly. : Nephrostomy tube in place with clear urine output. There is approximately 30 mL in the drainage bag. No armaan hematuria. Extremities: Warm and well perfused. No edema. DP 2+ bilaterally. No venous stasis. Neuro: No focal deficits. Cranial nerves II-XII normal. Skin: Warm dry, no rashes or lesions, no cyanosis. Psych: Normal mood and affect Heme/Lymph: No abnormal bruising General Limitations: no limitations Course Course Course Narrative: The 84-year-old male presents for complaints of low urine output after he had a left nephrostomy tube placed for an infected and obstructed calculi. Patient is been making urine up until this morning. Reevaluation(s) Reevaluation #1: Obtain CBC, CMP, UA Reevaluation #2: UA shows many white blood cells and small leukocyte esterase. POC Cr 3.4 (last creatinine on 09/17 was 1.91) Patient has not urinated for the 3 hours that he has been here for evaluation. We will check a bladder scan again. Initially ordered renal ultrasound, but tech is not available. Will repeat CT of the abdomen without contrast to evaluate the left kidney and ureter. Concern would be for infection, so we will obtain CBC, blood cultures, and lactic acid. Reevaluation #3: CT of the abdomen pelvis without contrast shows normal left kidney and ureter. Right kidney shows decreasing hydronephrosis no abscess or fluid, adequate placement of the nephrostomy tube, no obstructing process. UA does show high white blood cells, no bacteria, positive for leukocyte esterase. Culture has been sent. Lactic acid is 0.7, blood cultures x2 are pending. Patient is given 1 g of IV ceftriaxone and 1 L of IV fluids. Vital Signs Vital signs: Vital Signs Temperature 99.1 F H 09/20/20 13:18 Pulse Rate 63 09/20/20 13:18 Respiratory Rate 18 09/20/20 13:18 Blood Pressure 138/61 09/20/20 13:18 Pulse Oximetry (%) 96 09/20/20 13:18 Temperature 99.1 F H 09/20/20 13:18 Pulse Rate 79 09/20/20 20:01 Respiratory Rate 18 09/20/20 13:18 Blood Pressure 140/97 09/20/20 20:01 Pulse Oximetry (%) 96 09/20/20 20:01 [employer] Narrative Medical decision making narrative: Acute kidney injury Status post right nephrostomy tube for obstructing ureteral calculi Recent treatment for pyelonephritis I discussed this patient with Dr. Hernandez who agrees this is unlikely an obstructive problem with a CT scan today that shows no obstructive process. The patient has good drainage from his nephrostomy. Bladder scans have showed minimal urine in the bladder. Patient has been on Septra DS and this may have contributed to his acute kidney injury. He has been given IV fluids and will need admission for JOHNNY and IV antibiotics for a positive urine, which has been sent for culture. He has been given 1 g of IV ceftriaxone in the ER. Lab Data Result diagrams: 09/20/20 14:15 09/20/20 18:35 Labs: Lab Results 09/20/20 09/20/20 09/20/20 Range/Units 14:15 14:15 15:04 WBC 8.7 (4.5-11.0) K/mcL RBC 2.26 L (4.50-5.90) M/mcL Hgb 8.8 L (13.5-16.5) g/dL Hct 27.4 L (41.0-55.0) % POC Hct 25 L (41-55) % MCV 121.2 H (80.0-100.0) fL MCH 38.9 H (26.0-34.0) pg MCHC 32.1 (31.0-36.0) g/dL RDW 17.7 H (11.5-14.5) % Plt Count 406 (140-440) K/mcL MPV 10.4 (7.4-10.4) fL Seg Neutrophils % 88 H (38-78) % Lymphocytes % 5 L (15-49) % Monocytes % (Manual) 5 (1-12) % Eosinophils % (Manual) 2 (0-7) % Platelet Estimate Normal (Normal) RBC Morphology Abnormal A (Normal) Hypochromasia 2+ A (None Seen) Anisocytosis 1+ A (None Seen) Macrocytosis 2+ A (None Seen) VBG Lactic Acid (0.5-2.0) mmol/L POC Sodium 141 (133-145) mEq/L POC Potassium 4.3 (3.3-5.1) mEql/L POC Chloride 105 (96-108) mEq/L POC Total CO2 22 (22-30) mmol/L POC BUN 30 H (6-20) mg/dL POC Creatinine 3.4 H (0.6-1.2) mg/dL POC Glucose 99 (70-105) mg/dL POC WB Ioniz Calcium 1.22 (1.16-1.32) mmEq/L Urine Color Yellow Urine Appearance Turbid A (Clear) Urine pH 6.0 (5.0-9.0) Ur Specific [place] 1.025 (1.000-1.035) Urine Protein >=300 mg/dl A (Negative) mg/dL Urine Glucose (UA) Negative (Negative) mg/dL Urine Ketones Negative (Negative) mg/dL Urine Occult Blood Large A (Negative) taisha/mcL Urine Nitrate Negative (Negative) Urine Bilirubin Negative (Negative) mg/dL Urine Urobilinogen Normal mg/dL Ur Leukocyte Esterase Small A (Negative) /ug Urine RBC > 182 H (0-1) /hpf Urine WBC > 182 H (0-4) /hpf Ur Squamous Epith Cells 0 (0-4) /hpf Urine Bacteria None (0) /hpf Urine Mucus Few A (None) /hpf Ur Culture Indicated? yes 09/20/20 Range/Units 18:02 WBC (4.5-11.0) K/mcL RBC (4.50-5.90) M/mcL Hgb (13.5-16.5) g/dL Hct (41.0-55.0) % POC Hct (41-55) % MCV (80.0-100.0) fL MCH (26.0-34.0) pg MCHC (31.0-36.0) g/dL RDW (11.5-14.5) % Plt Count (140-440) K/mcL MPV (7.4-10.4) fL Seg Neutrophils % (38-78) % Lymphocytes % (15-49) % Monocytes % (Manual) (1-12) % Eosinophils % (Manual) (0-7) % Platelet Estimate (Normal) RBC Morphology (Normal) Hypochromasia (None Seen) Anisocytosis (None Seen) Macrocytosis (None Seen) VBG Lactic Acid 0.7 (0.5-2.0) mmol/L POC Sodium (133-145) mEq/L POC Potassium (3.3-5.1) mEql/L POC Chloride (96-108) mEq/L POC Total CO2 (22-30) mmol/L POC BUN (6-20) mg/dL POC Creatinine (0.6-1.2) mg/dL POC Glucose (70-105) mg/dL POC WB Ioniz Calcium (1.16-1.32) mmEq/L Urine Color Urine Appearance (Clear) Urine pH (5.0-9.0) Ur Specific [place] (1.000-1.035) Urine Protein (Negative) mg/dL Urine Glucose (UA) (Negative) mg/dL Urine Ketones (Negative) mg/dL Urine Occult Blood (Negative) taisha/mcL Urine Nitrate (Negative) Urine Bilirubin (Negative) mg/dL Urine Urobilinogen mg/dL Ur Leukocyte Esterase (Negative) /ug Urine RBC (0-1) /hpf Urine WBC (0-4) /hpf Ur Squamous Epith Cells (0-4) /hpf Urine Bacteria (0) /hpf Urine Mucus (None) /hpf Ur Culture Indicated? Discharge Plan Patient/Caregiver Discharge Instructions Pt seen by CONCRETE CURER/PA only: Yes Patient Disposition: Xfer As Inpt ([facility]) Follow up with: Zaida Delgado ARNP [Primary Care Provider] - Prescriptions: No Action cholecalciferol (vitamin D3) 2,000 unit capsule 2,000 unit PO QDAY Qty: 90 RF: 4 tamsulosin [Flomax] 0.4 mg capsule 0.4 mg PO QDAY RF: 0 apixaban 5 mg tablet 5 mg PO BID RF: 0 finasteride 5 mg tablet 5 mg PO QDAY RF: 0 docusate sodium 100 mg capsule 100 mg PO QDAY RF: 0 amlodipine 5 mg tablet 5 mg PO BID Qty: 180 RF: 4 atorvastatin 20 MG tablet 20 mg PO HS RF: 0 lisinopril 20 MG tablet 20 mg PO DAILY RF: 0 pantoprazole 40 MG tablet 40 mg PO QAMAC RF: 0 gabapentin 300 mg capsule 300 mg PO BID RF: 0 hydroxyurea 500 mg capsule 500 mg PO DAILY RF: 0 hydrochlorothiazide 25 mg tablet 25 mg PO DAILY RF: 0 aspirin 325 MG tablet 325 mg PO DAILY Qty: 30 RF: 0
[2020-09-20 15:46] LABS: POC Blood Urea Nitrogen 30 mg/dL (6-20); POC CO2 22 mmol/L (22-30); POC Calcium, Ionized 1.22 mmEq/L (1.16-1.32); POC Chloride 105 mEq/L (96-108); POC Creatinine 3.4 mg/dL (0.6-1.2); POC Glucose, Random 99 mg/dL (70-105); POC Hematocrit 25 % (41-55); POC Potassium 4.3 mEql/L (3.3-5.1); POC Sodium 141 mEq/L (133-145)
[2020-09-20 16:31] LABS: Appearance,Urine Turbid (Clear); Bilirubin,Urine Negative (Negative); Color,Urine Yellow; Culture Indicated,Urine yes; Glucose,Urine (UA) Negative (Negative); Ketones,Urine Negative (Negative); Leukocyte Esterase,Urine Small /ug (Negative); Mucus,Urine FEW /hpf; Nitrate,Urine Negative (Negative); Protein,Urine >=300 mg/dL mg/dL (Negative); Specific Gravity,Urine 1.025 (1.000-1.035); Urine Blood Large ery/mcL (Negative); Urine RBC > 182 /hpf (0-1); Urine Squamous Epithelial Cell 0 /hpf (0-4); Urine WBC > 182 /hpf (0-4); Urobilinogen,Urine Normal
[2020-09-20] MEDS ORDERED: 0.9 % SODIUM CHLORIDE 1,000 ML IV ONE (17:42)
[2020-09-20 17:49] LABS: Hematocrit 27.4 % (41.0-55.0); Hemoglobin 8.8 g/dL (13.5-16.5); Mean Cell Volume 121.2 fL (80.0-100.0); Mean Corpuscular HGB Conc 32.1 g/dL (31.0-36.0); Mean Platelet Volume 10.4 fL (7.4-10.4); Platelet Count 406 K/mcL (140-440); RBC 2.26 M/mcL (4.50-5.90); Red Cell Distribution Width 17.7 % (11.5-14.5); WBC 8.7 K/mcL (4.5-11.0)
[2020-09-20 18:21] LABS: Anisocytosis 1+ (None Seen); Eosinophils % (Manual) 2 % (0-7); Hypochromasia 2+ (None Seen); Lymphocytes % 5 % (15-49); Macrocytosis 2+ (None Seen); Monocytes % (Manual) 5 % (1-12); Platelet Estimate NORMAL (Normal); RBC Morphology ABNORMAL (Normal); Segmented Neutrophils % 88 % (38-78)
[2020-09-20] MEDS ORDERED: cefTRIAXone 1 GM VIAL IV ONE (18:41)
--- NOTE | 2020-09-20 20:27 | Internal Med History&Physical ---
HPI History of Present Illness Patient information: Note initiated : 09/20/20 at 8:21 pm Service Date, if different from initiated Date: [] Patient: Ildefonso Forman Jr a 84 y/o M admitted on for Abdominal Discomfort, decreased urination. Chief Complaint: [] History of present illness: Mr. Dickson Jarrell is a 84 year old M who presented to the ED because he was not urinating. Patient originally presented to [facility] and found to have a urinary obstruct ion and was transferred to [facility] with inability to place stent and then was transferred up to [facility] for nephrostomy tube. He has been home very long and was doing well however this morning suddenly he produced no urine. Also complained of some dysuria. In the ED he was evaluated and had imaging and case also discussed with Dr. Hernandez. The nephrostomy tube seems to be working and on imaging no obstructions. Dr. Hernandez is concerned is probably a toxic effect from Bactrim that he was discharged on. He also takes hydrochlorothiazide and lisinopril. He denies any fever chills nausea vomiting chest pain shortness of breath diarrhea. Review of Systems: Pertinent positives as above. Denies headache/fever/chills/nausea/vomiting/chest or abdominal pain/cough/dyspnea/diarrhea. Many 10 point review of system reviewed negative PFSH PFSH All Active Problems Ureteral stone (Acute) Chronic kidney disease (CKD) stage G3a/A3, moderately decreased glomerular filtration rate (GFR) between 45-59 mL/min/1.73 square meter and albuminuria creatinine ratio greater than 300 mg/g (Chronic) Skin cancer (Chronic) Solar elastosis (Chronic) Sebaceous cyst (Chronic) DVT (deep venous thrombosis) (Chronic) Lentigines (Chronic) Actinic keratosis (Chronic) History of prostate surgery (Chronic) History of suprapubic catheter (Chronic) History of hernia repair (Chronic) History of tonsillectomy (Chronic) UTI (urinary tract infection) (Chronic) Gross hematuria (Chronic) Urinary bladder stone (Chronic) Benign hypertension with CKD (chronic kidney disease) stage III (Chronic) Enlarged prostate with lower urinary tract symptoms (LUTS) (Chronic) Vitamin D deficiency (Chronic) Iron deficiency (Chronic) Persistent proteinuria (Chronic) Back pain (Chronic) Inguinal hernia (Chronic) Osteoarthritis (Chronic) BPH (benign prostatic hyperplasia) (Chronic) Benign essential hypertension (Chronic) Hemangioma (Chronic) Polycythemia (Chronic) 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 (Chronic) MCFP 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) On warfarin therapy (Chronic) Urethral calculus (Chronic) Edema (Chronic) Cellulitis (Chronic) Cardiomegaly (Chronic) Deep vein thrombosis of left lower extremity (Chronic) Murmur (Chronic) GERD (gastroesophageal reflux disease) (Chronic) Degeneration of lumbar intervertebral disc (Chronic) Carotid atherosclerosis (Chronic) Diastolic heart failure (Chronic) Hydroxyurea adverse reaction (Chronic) PVD (peripheral vascular disease) (Chronic) Foot ulcer (Chronic) History of amputation of toe (Chronic) Leg pain (Chronic) Medical History Actinic keratosis Back pain Benign essential hypertension BPH (benign prostatic hyperplasia) Cardiomegaly Carotid atherosclerosis Cellulitis Deep vein thrombosis of left lower extremity Degeneration of lumbar intervertebral disc Diastolic heart failure DVT (deep venous thrombosis) Edema Foot ulcer GERD (gastroesophageal reflux disease) Gross hematuria Hemangioma History of amputation of toe Bilateral great toes Hydroxyurea adverse reaction 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 Inguinal hernia Lentigines MCFP current use of anticoagulant Murmur On warfarin therapy Osteoarthritis Polycythemia PVD (peripheral vascular disease) Sebaceous cyst Skin cancer Solar elastosis Urethral calculus UTI (urinary tract infection) IV antibiotics Surgical History History of angioplasty Right Foot History of hernia repair History of prostate surgery History of suprapubic catheter History of tonsillectomy Family History Mother Leukemia Father Stroke Brother Stroke Heart disease Social History marital status: occupational status: retired alcohol intake frequency: does not drink substance use type: does not use MEDS/ALLERGIES Home Medications and Allergies Home Medications Medication Instructions Recorded Confirmed Type atorvastatin 20 mg PO HS 05/13/17 09/12/20 History lisinopril 20 mg PO DAILY 05/13/17 09/12/20 History pantoprazole 40 mg PO QAMAC 05/13/17 09/12/20 History aspirin 325 mg PO DAILY #30 tab 08/02/17 09/12/20 Rx cholecalciferol (vitamin D3) 50 2,000 unit PO QDAY #90 cap 11/29/17 09/12/20 Rx mcg (2,000 unit) capsule apixaban 5 mg tablet 5 mg PO BID tab 03/31/19 09/12/20 History gabapentin 300 mg capsule 300 mg PO BID cap 03/31/19 09/12/20 History hydrochlorothiazide 25 mg tablet 25 mg PO DAILY tab 03/31/19 09/12/20 History hydroxyurea 500 mg capsule 500 mg PO DAILY cap 03/31/19 09/12/20 History tamsulosin 0.4 mg capsule 0.4 mg PO QDAY cap 03/31/19 09/12/20 History docusate sodium 100 mg capsule 100 mg PO QDAY 10/03/19 09/12/20 History finasteride 5 mg tablet 5 mg PO QDAY 10/03/19 09/12/20 History amlodipine 5 mg tablet 5 mg PO BID #180 tab 05/23/20 09/12/20 Rx Allergies Allergy/AdvReac Type Severity Reaction Status Date / Time doxazosin Allergy Unknown Unknown Verified 09/12/20 19:19 fish derived Allergy Unknown Unknown Verified 05/23/20 08:48 niacin Allergy Unknown Unknown Verified 05/23/20 08:48 EXAM Constitutional Vitals: Temp Pulse Resp BP Pulse Ox 99.1 F H 72 18 141/68 98 09/20/20 13:18 09/20/20 19:29 09/20/20 13:18 09/20/20 19:47 09/20/20 19:47 Exam: General: Alert, Awake, No acute Distress Eyes/N/T: EOMI, PERRL, Head/Neck: neck supple, normocephalic atraumatic CV: RRR, No murmurs, normal s1/s2 Pulm: Clear b/l, no wheezing/rhonchi/rales Abd: soft, nontender, +BS x4, right nephrostomy tube Ext: no clubbing/cyanosis, 2-3+ b/l LE edema Neuro: Alert, no focal deficits, moves all extremities, CN 2-12 grossly intact, symmetrical strength b/l upper/lower, sensations intact b/l upper/lower Skin: warm/dry DATA Data Completed and Pending Labs: Labs from last 24 hours 09/20/20 09/20/20 09/20/20 18:35 18:02 15:04 WBC RBC Hgb Hct POC Hct MCV MCH MCHC RDW Plt Count MPV Seg Neutrophils % Lymphocytes % Monocytes % (Manual) Eosinophils % (Manual) Platelet Estimate RBC Morphology Hypochromasia Anisocytosis Macrocytosis VBG Lactic Acid 0.7 POC Sodium Sodium Pending POC Potassium Potassium Pending POC Chloride Chloride Pending Carbon Dioxide Pending POC Total CO2 Anion Gap Pending POC BUN BUN Pending Creatinine Pending POC Creatinine GFR Calculation Pending Glucose Pending POC Glucose Calcium Pending POC WB Ioniz Calcium Phosphorus Pending Albumin Pending Urine Color Yellow Urine Appearance Turbid A Urine pH 6.0 Ur Specific [place] 1.025 Urine Protein >=300 mg/dl A Urine Glucose (UA) Negative Urine Ketones Negative Urine Occult Blood Large A Urine Nitrate Negative Urine Bilirubin Negative Urine Urobilinogen Normal Ur Leukocyte Esterase Small A Urine RBC > 182 H Urine WBC > 182 H Ur Squamous Epith Cells 0 Urine Bacteria None Urine Mucus Few A Ur Culture Indicated? yes 09/20/20 09/20/20 14:15 14:15 WBC 8.7 RBC 2.26 L Hgb 8.8 L Hct 27.4 L POC Hct 25 L MCV 121.2 H MCH 38.9 H MCHC 32.1 RDW 17.7 H Plt Count 406 MPV 10.4 Seg Neutrophils % 88 H Lymphocytes % 5 L Monocytes % (Manual) 5 Eosinophils % (Manual) 2 Platelet Estimate Normal RBC Morphology Abnormal A Hypochromasia 2+ A Anisocytosis 1+ A Macrocytosis 2+ A VBG Lactic Acid POC Sodium 141 Sodium POC Potassium 4.3 Potassium POC Chloride 105 Chloride Carbon Dioxide POC Total CO2 22 Anion Gap POC BUN 30 H BUN Creatinine POC Creatinine 3.4 H GFR Calculation Glucose POC Glucose 99 Calcium POC WB Ioniz Calcium 1.22 Phosphorus Albumin Urine Color Urine Appearance Urine pH Ur Specific [place] Urine Protein Urine Glucose (UA) Urine Ketones Urine Occult Blood Urine Nitrate Urine Bilirubin Urine Urobilinogen Ur Leukocyte Esterase Urine RBC Urine WBC Ur Squamous Epith Cells Urine Bacteria Urine Mucus Ur Culture Indicated? A/P Narrative A/P Narrative: A: *JOHNNY on CKD III: likely from Bactrim/ACEI/HCTZ *UTI: *Recent obstructive uropathy with right-sided nephrostomy tube placed to [facility]: -Peers to be functioning *Anemia, chronic: *h/o DVT and PVD: on eliqus/ASA/Statin; follows with Dr. Batres *HTN: *GERD: * P: -IVF -Follow-up renal function -Rocephin pending UC -Hold ACEI/HCTZ. d/c'd bactrim -Continue Eliquis/aspirin/statin -Continue Norvasc -Compression stockings and elevate legs -f/u with Dr. Hernandez - -ppx: Eliquis/home PPI full code Time Spent With Patient Time: Total time spent is greater than 50% in coordination of care (as documented) at patient's floor/unit and/or counseling patient:
[2020-09-20] MEDS: 0.9 % SODIUM CHLORIDE 10 ML SYRINGE IV SCH (21:30)
[2020-09-20 21:36] LABS: Albumin 3.5 gm/dL (3.2-5.2); Blood Urea Nitrogen 28 mg/dL (8-23); Calcium 8.1 mg/dL (8.6-10.4); Carbon Dioxide 24 mmol/L (22-30); Chloride 104 mmol/L (96-108); Glomerular Filtration Rate 38; Glucose 133 mg/dL (70-105); Phosphorous 2.9 mg/dL (2.5-4.5)
[2020-09-20] MEDS ORDERED: SENNOSIDES 1 TABLET PO PRN (21:52)
[2020-09-20] MEDS ORDERED: 0.9 % SODIUM CHLORIDE 1,000 ML IV SCH (21:52)
[2020-09-20] MEDS ORDERED: POLYETHYLENE GLYCOL 3350 17 GM PACKET PO PRN (21:52)
[2020-09-20] MEDS ORDERED: IPRATROPIUM/ALBUTEROL 3 ML AMPUL.NEB NEB PRN (21:52)
[2020-09-20] MEDS ORDERED: ONDANSETRON 4 MG/2 ML VIAL IV PRN (21:52)
[2020-09-20] MEDS ORDERED: cefTRIAXone 1 GM in DEXTROSE 5% IN WATER 50 ML IV SCH (21:52)
[2020-09-20] MEDS ORDERED: POTASSIUM CHLORIDE 40 MEQ in DEXTROSE 5% IN WATER 500 ML IV PRN (21:52)
[2020-09-20] MEDS ORDERED: LACTULOSE 20 GM/30 ML ORAL.SOL PO PRN (21:52)
[2020-09-20] MEDS ORDERED: POTASSIUM CHLORIDE 20 MEQ TABLET PO PRN ×2 (21:52)
[2020-09-20] MEDS ORDERED: HYDROcodone/APAP 5/325MG TABLET PO PRN (21:52)
[2020-09-20] MEDS ORDERED: MAGNESIUM SULFATE 2 GM/50 ML BAG IV PRN (21:52)
[2020-09-20] MEDS ORDERED: ACETAMINOPHEN 325 MG TABLET PO PRN (21:52)
[2020-09-20] MEDS ORDERED: LABETALOL 5 MG/ML ML IV PRN (21:52)
[2020-09-20] MEDS ORDERED: APIXABAN 5 MG TABLET PO ONE (23:23)
[2020-09-20] MEDS: DOCUSATE SODIUM 100 MG CAPSULE PO SCH (23:24)
[2020-09-20] MEDS: APIXABAN 5 MG TABLET PO SCH (23:24)
[2020-09-20] MEDS: ATORVASTATIN 20 MG TABLET PO SCH (23:27)
[2020-09-21 02:59] LABS: Appearance,Urine Slightly Cloudy (Clear); Bilirubin,Urine Negative (Negative); Color,Urine Yellow; Culture Indicated,Urine yes; Glucose,Urine (UA) Negative (Negative); Ketones,Urine Negative (Negative); Leukocyte Esterase,Urine Small /ug (Negative); Mucus,Urine FEW /hpf; Nitrate,Urine Negative (Negative); Protein,Urine >=300 mg/dL mg/dL (Negative); Urine Blood Large ery/mcL (Negative); Urine RBC 140 /hpf (0-3); Urine Squamous Epithelial Cell 0 /hpf (0-4); Urine WBC > 182 /hpf (0-4); Urobilinogen,Urine Normal
[2020-09-21] MEDS: 0.9 % SODIUM CHLORIDE 10 ML SYRINGE IV SCH ×3 (05:16→20:27)
[2020-09-21 06:44] LABS: Basophils # (Auto) 0.06 K/mcL (0.00-0.20); Basophils % (Auto) 0.7 % (0.0-2.0); Eosinophils # (Auto) 0.33 K/mcL (0.00-0.70); Eosinophils % (Auto) 3.6 % (0.0-7.0); Hematocrit 26.8 % (41.0-55.0); Hemoglobin 8.7 g/dL (13.5-16.5); Lymphocytes # (Auto) 0.73 K/mcL (1.50-4.80); Mean Cell Volume 119.1 fL (80.0-100.0); Mean Corpuscular HGB Conc 32.5 g/dL (31.0-36.0); Mean Platelet Volume 10.5 fL (7.4-10.4); Monocytes # (Auto) 0.38 K/mcL (0.10-0.90); Monocytes % (Auto) 4.2 % (1.0-12.0); Neutrophils % (Auto) 83.5 % (38.0-78.0); Platelet Count 398 K/mcL (140-440); RBC 2.25 M/mcL (4.50-5.90); Red Cell Distribution Width 17.3 % (11.5-14.5); WBC 9.1 K/mcL (4.5-11.0)
[2020-09-21 07:04] LABS: ALT/SGPT 18 U/L (<40); AST/SGOT 21 U/L (<40); Albumin 3.3 gm/dL (3.2-5.2); Albumin/Globulin Ratio 1.6 (1.0-2.3); Alkaline Phosphatase 71 U/L (39-117); Bilirubin,Direct < 0.2 mg/dL (0-0.3); Bilirubin,Total 0.2 mg/dL (0.1-1.0); Blood Urea Nitrogen 27 mg/dL (8-23); Calcium 8.2 mg/dL (8.6-10.4); Carbon Dioxide 21 mmol/L (22-30); Chloride 107 mmol/L (96-108); Globulin 2.1 gm/dL (2.2-3.7); Glomerular Filtration Rate 38; Glucose 86 mg/dL (70-105); Lactate Dehydrogenase 363 U/L (135-225); Phosphorous 3.1 mg/dL (2.5-4.5); Triglycerides 202 mg/dL (<150); Uric Acid 6.7 mg/dL (2.5-8.0)
[2020-09-21] MEDS ORDERED: MAGNESIUM SULFATE 8.12 MEQ in DEXTROSE 5% IN WATER 50 ML IV ONE (07:35)
[2020-09-21] MEDS ORDERED: FUROSEMIDE 40 MG/4 ML VIAL IV ONE (07:36)
--- NOTE | 2020-09-21 07:37 | Internal Med Progress Note ---
SUBJECTIVE Subjective Patient information: Note initiated : 09/21/20 at 7:31 am Service Date, if different from initiated Date: [] Patient: Ildefonso Forman Jr a 84 y/o M admitted on 09/20/20 for Abdominal Discomfort, decreased urination. Chief Complaint: [] Interval history: History of present illness: Mr. Dickson Jarrell is a 84 year old M who presented to the ED because he was not urinating. Patient originally presented to [facility] and found to have a urinary obstruction and was transferred to [facility] with inability to place stent and then was transferred up to [place] for nephrostomy tube. He has been home very long and was doing well however this morning suddenly he produced no urine. Also complained of some dysuria. In the ED he was evaluated and had imaging and case also discussed with Dr. Hernandez. The nephrostomy tube seems to be working and on imaging no obstructions. Dr. Hernandez is concerned is probably a toxic effect from Bactrim that he was discharged on. He also takes hydrochlorothiazide and lisinopril. He denies any fever chills nausea vomiting chest pain shortness of breath diarrhea. 09/21 With no new complaints. Good urine output. Looks like the [id number] lab from the ED was inaccurate because the actual b lood draw showed a decent creatinine. Pending urine culture Review of Systems: denies headache/fever/chills/nausea/vomiting/chest or abdominal pain/cough/dyspnea/diarrhea. Otherwise see above. Constitutional Vitals: Vital Signs Temp Pulse Resp BP Pulse Ox 98.8 F 64 16 143/64 94 09/21/20 07:21 09/20/20 21:30 09/21/20 07:21 09/21/20 07:09/21/20 07: Period Temp Pulse Resp BP Sys/Sinha Pulse Ox Last 24 Hr 97.9 F-99.1 F 57-79 16-20 130-152/45-97 93-98 Intake and Output 09/20/20 09/21/20 09/21/20 21:59 05:59 13:59 Intake Total 1000 50 Output Total 750 Balance 1000 -700 Weight 83.098 kg Intake & Output: Intake & Output 09/20/20 09/21/20 09/21/20 21:59 05:59 13:59 Intake Total 1000 50 Output Total 750 Balance 1000 -700 Weight 83.098 kg Intake: IV 1000 Sodium Chloride 0.9% 1,000 ml @ 1000 Wide Open IV BOLUS ONE Rx#: [id number] Oral 50 Output: Urine Catheter Amount 700 Void Amount 50 Other: Urine Appearance Cloudy Nephrostomy Tube (Right) Cloudy Urine Color Dark Yellow Dark Yellow [place] Nephrostomy Tube (Right) Brown [place] # Bowel Movements 0 Exam: General: Alert, Awake, No acute Distress Eyes/N/T: EOMI, Head/Neck: neck supple, CV: RRR, No murmurs, Pulm: Clear b/l, no wheezing/rhonchi/rales Abd: soft, nontender, +BS x4, right nephrostomy tube Ext: no clubbing/cyanosis, 1-2+ b/l LE edema improved Neuro: Alert, no focal deficits, moves all extremities, Skin: warm/dry OBJ DATA Labs CBC & Chem 7: 09/21/20 05:07 09/21/20 05:07 Labs: Abnormal Lab Results 09/21/20 09/21/20 09/21/20 05:07 05:07 02:07 RBC 2.25 L Hgb 8.7 L Hct 26.8 L POC Hct MCV 119.1 H MCH 38.7 H RDW 17.3 H MPV 10.5 H Neut % (Auto) 83.5 H Lymph % (Auto) 8.0 L Lymph # (Auto) 0.73 L Seg Neutrophils % Lymphocytes % RBC Morphology Hypochromasia Anisocytosis Macrocytosis Carbon Dioxide 21 L POC BUN BUN 27 H Creatinine 1.6 H POC Creatinine Glucose Calcium 8.2 L Magnesium 1.5 L Lactate Dehydrogenase 363 H Total Protein 5.4 L Globulin 2.1 L Triglycerides 202 H Urine Appearance Slightly cloudy A Urine Protein >=300 mg/dl A Urine Occult Blood Large A Ur Leukocyte Esterase Small A Urine RBC 140 H Urine WBC > 182 H Urine Mucus Few A 09/20/20 09/20/20 09/20/20 18:35 15:04 14:15 RBC 2.26 L Hgb 8.8 L Hct 27.4 L POC Hct MCV 121.2 H MCH 38.9 H RDW 17.7 H MPV Neut % (Auto) Lymph % (Auto) Lymph # (Auto) Seg Neutrophils % 88 H Lymphocytes % 5 L RBC Morphology Abnormal A Hypochromasia 2+ A Anisocytosis 1+ A Macrocytosis 2+ A Carbon Dioxide POC BUN BUN 28 H Creatinine 1.6 H POC Creatinine Glucose 133 H Calcium 8.1 L Magnesium Lactate Dehydrogenase Total Protein Globulin Triglycerides Urine Appearance Turbid A Urine Protein >=300 mg/dl A Urine Occult Blood Large A Ur Leukocyte Esterase Small A Urine RBC > 182 H Urine WBC > 182 H Urine Mucus Few A 09/20/20 14:15 RBC Hgb Hct POC Hct 25 L MCV MCH RDW MPV Neut % (Auto) Lymph % (Auto) Lymph # (Auto) Seg Neutrophils % Lymphocytes % RBC Morphology Hypochromasia Anisocytosis Macrocytosis Carbon Dioxide POC BUN 30 H BUN Creatinine POC Creatinine 3.4 H Glucose Calcium Magnesium Lactate Dehydrogenase Total Protein Globulin Triglycerides Urine Appearance Urine Protein Urine Occult Blood Ur Leukocyte Esterase Urine RBC Urine WBC Urine Mucus Meds: Medications Acetaminophen (Acetaminophen 325 Mg Tablet) 650 mg PO Q6HP PRN PRN Reason: PAIN/FEVER > 101 Hydrocodone Bitart/Acetaminophen (Hydrocodone/Apap 5/325mg Tablet) 1 tab PO Q4HP PRN PRN Reason: PAIN LEVEL 3-6 Albuterol/Ipratropium (Ipratropium/Albuterol 3 Ml Ampul.Neb) 3 ml NEB Q4HP PRN PRN Reason: Shortness Of Breath Amlodipine Besylate (Amlodipine 5 Mg Tablet) 5 mg PO DAILY [facility] Apixaban (Apixaban 5 Mg Tablet) 5 mg PO BID [facility] Last Admin: 09/20/20 23:24 Dose: 5 mg Documented by: Atorvastatin Calcium (Atorvastatin 20 Mg Tablet) 20 mg PO [facility] Last Admin: 09/20/20 23:27 Dose: 20 mg Documented by: Ceftriaxone Sodium (Ceftriaxone 1 Gm Vial) 1 gm IV Q24H [facility] Docusate Sodium (Docusate Sodium 100 Mg Capsule) 100 mg PO BID [facility] Last Admin: 09/20/20 23:24 Dose: Not Given Documented by: Potassium Chloride 40 meq/ (Dextrose) 520 mls @ 130 mls/hr IV UD PRN PRN Reason: Potassium < 3 Magnesium Sulfate (Magnesium Sulfate) 2 gm in 50 mls @ 50 mls/hr IV UD PRN PRN Reason: Magnesium </= 1.6 Sodium Chloride (Sodium Chloride 0.9%) 1,000 mls @ 75 mls/hr IV .[id number] [facility] Last Admin: 09/20/20 21:52 Dose: 75 mls/hr Documented by: Labetalol HCl (Labetalol 5 Mg/Ml Ml) 0 mg IV Q2HP PRN PRN Reason: Hypertension Lactulose (Lactulose 20 Gm/30 Ml Oral.Ya) 20 gm PO DAILYP PRN PRN Reason: Constipation Ondansetron HCl (Ondansetron 4 Mg/2 Ml Vial) 4 mg IV Q4HP PRN PRN Reason: Nausea And Vomiting Pantoprazole Sodium (Pantoprazole 40 Mg Tablet) 40 mg PO QAMAC [facility] Polyethylene Glycol (Polyethylene Glycol 3350 17 Gm Packet) 17 gm PO DAILYP PRN PRN Reason: Constipation Potassium Chloride (Potassium Chloride 20 Meq Tablet) 40 meq PO UD PRN PRN Reason: Potssium is 3-3.5 Potassium Chloride (Potassium Chloride 20 Meq Tablet) 40 meq PO UD PRN PRN Reason: Potassium < 3 Senna (Sennosides 1 Tablet) 2 tab PO DAILYP PRN PRN Reason: Constipation Sodium Chloride (0.9 % Sodium Chloride 10 Ml Syringe) 10 ml IV Q8 [facility] Last Admin: 09/21/20 05:16 Dose: Not Given Documented by: A/P Narrative A/P Narrative: A: *?JOHNNY (lab error) on CKD III: Bactrim/ACEI/HCTZ -Cr 1.6 *UTI: *Recent obstructive uropathy with right-sided nephrostomy tube placed to [facility]: -appears to be functioning *Anemia, chronic: stable *h/o DVT and PVD: on eliqus/ASA/Statin; follows with Dr. Batres *HTN: *GERD: *Hearing impairment: *Hypomag: P: -IVF d/c -Follow-up renal function -Rocephin pending UC -Hold ACEI/HCTZ. d/c'd bactrim -Continue Eliquis/aspirin/statin -Continue Norvasc -Compression stockings and elevate legs -f/u with Dr. Hernandez - -ppx: Eliquis/home PPI full code Time Spent With Patient Time: Total time spent is greater than 50% in coordination of care (as documented) at patient's floor/unit and/or counseling patient: QUALITY VTE Deep Vein Thrombosis/Pulmonary Embolism Present on Admission: No
--- NOTE | 2020-09-21 07:39 | Cat Scan Report ---
History: Acute kidney injury with decreased urine output, status post recent right percutaneous nephrostomy for obstructing kidney stones technique: The patient was imaged without contrast at 2.5 mm intervals from the diaphragm through the symphysis pubis. Sagittal and coronal reformats were created. Radiation exposure was limited using dose reduction technology. FINDINGS: There is a 10 cm subcapsular cyst anteriorly in the right lobe the liver. In segment two of the left lobe of the liver there is another low-attenuation lesion measuring 4.6 x 6.2 cm. It has a density of 20 Hounsfield units which suggests it is fluid but it has higher attenuation than the simple cyst in the right lobe. This has not enlarged compared to prior CTs dating back to 10/02/18. The spleen is upper limits of normal in size but homogeneous. There is some high attenuation material layering posteriorly within the fundus of the gallbladder. This was not seen on 09/12/20. Could be milk of calcium or excreted intravenous contrast. Gallbladder wall is not thickened and the bile ducts are nondilated. The pancreas appears normal without evidence of a mass or inflammation. The adrenals are normal and symmetric. The patient has a percutaneous nephrostomy catheter in the right kidney. There is one loop of the catheter located in the renal pelvis. The catheter then extends down the right ureter with a second loop located in the urinary bladder. The hydronephrosis seen on the recent study done on 09/12/20 is no longer present. There is residual mild stranding of the fat around the kidney which is a chronic stable finding. There are residual stones in the right kidney. There are approximate four stones in the calyces and infundibula in the lower half. The largest measures 7 x 11 mm. Contiguous with the stent at the level of the ureteropelvic junction there is a 3 x 8 mm stone. A 7 x 11 mm stone is present at the same level on the prior exam. There are more stones seen in the left kidney preoperatively. The left kidney is normal without evidence of stone or hydronephrosis. Both ureters are decompressed. Urinary bladder is decompressed. There is no ascites abscess are present in the abdomen or pelvis. The bowel is nondilated. There are a few noninflamed diverticula in the sigmoid colon. A moderate size hiatus hernia is present. The prostate is markedly enlarged. The patient has an inferior vena cava filter in the mid abdominal IVC. At the tip of the filter the lumen of the inferior vena cava is very narrowed. Patency of the inferior vena cava cannot be determined on this nonenhanced study. IMPRESSION: Well-positioned right percutaneous nephrostomy which extends down to the bladder. There is no hydronephrosis or evidence of leakage around the catheter. Residual stones in the right kidney and at the right ureteropelvic junction. These are fewer in number and some of them are smaller than seen on the prior exam Jessica Granda was called with the report Hepatic cysts Interpreted and Authenticated by: Rudy Salgado 09/21/20
[2020-09-21] MEDS: APIXABAN 5 MG TABLET PO SCH ×2 (08:20→20:27)
[2020-09-21] MEDS: DOCUSATE SODIUM 100 MG CAPSULE PO SCH ×2 (08:20→20:27)
[2020-09-21] MEDS: PANTOPRAZOLE 40 MG TABLET PO SCH (08:20)
[2020-09-21] MEDS: amLODIPine 5 MG TABLET PO SCH (08:20)
[2020-09-21] MEDS: cefTRIAXone 1 GM VIAL IV SCH (08:20)
[2020-09-21] MEDS: ATORVASTATIN 20 MG TABLET PO SCH (20:27)
[2020-09-22] MEDS: 0.9 % SODIUM CHLORIDE 10 ML SYRINGE IV SCH (07:02)
[2020-09-22 08:24] LABS: ALT/SGPT 16 U/L (<40); AST/SGOT 18 U/L (<40); Albumin 3.3 gm/dL (3.2-5.2); Albumin/Globulin Ratio 1.5 (1.0-2.3); Alkaline Phosphatase 60 U/L (39-117); Bilirubin,Direct < 0.2 mg/dL (0-0.3); Bilirubin,Total 0.3 mg/dL (0.1-1.0); Blood Urea Nitrogen 32 mg/dL (8-23); Calcium 8.3 mg/dL (8.6-10.4); Carbon Dioxide 24 mmol/L (22-30); Chloride 103 mmol/L (96-108); Globulin 2.2 gm/dL (2.2-3.7); Glomerular Filtration Rate 45; Glucose 92 mg/dL (70-105); Lactate Dehydrogenase 343 U/L (135-225); Phosphorous 3.1 mg/dL (2.5-4.5); Triglycerides 216 mg/dL (<150); Uric Acid 6.8 mg/dL (2.5-8.0)
[2020-09-22] MEDS: amLODIPine 5 MG TABLET PO SCH (08:35)
[2020-09-22] MEDS: PANTOPRAZOLE 40 MG TABLET PO SCH (08:35)
[2020-09-22] MEDS: DOCUSATE SODIUM 100 MG CAPSULE PO SCH (08:35)
[2020-09-22] MEDS: cefTRIAXone 1 GM VIAL IV SCH (08:57)
[2020-09-22] MEDS: APIXABAN 5 MG TABLET PO SCH (08:57)
--- NOTE | 2020-09-22 10:04 | Discharge Summary ---
Discharge Provider Provider Patient information: Note initiated : 09/22/20 at 9:58 am Service Date, if different from initiated Date: [] Patient: Ildefonso Forman Jr 84 y/o M admitted on 09/20/20 for Abdominal Discomfort, decreased urination. Chief Complaint: [] Date of admission: 09/20/20 21:26 Discharge date: 09/22/20 Primary care physician: Zaida Delgado Consults: 09/20/20 Consult to Physician [CONS] Stat Comment: Consulting Provider: Ramon Blanco Reason For Exam: Physician to Consult Discharge Meds Discharge Medications Home Medications atorvastatin 20 mg PO HS 05/13/17 [History Confirmed 09/21/20 Last Taken 09/12/20 08:00] lisinopril 20 mg PO DAILY 05/13/17 [History Confirmed 09/21/20 Last Taken 09/12/20 08:00] pantoprazole 40 mg PO QAMAC 05/13/17 [History Confirmed 09/21/20 Last Taken 09/12/20 08:00] cholecalciferol (vitamin D3) 50 mcg (2,000 unit) capsule 2,000 unit PO QDAY #90 cap 11/29/17 [Rx Confirmed 09/21/20 Last Taken 09/12/20 08:00] apixaban 5 mg tablet 5 mg PO BID tab 03/31/19 [History Confirmed 09/21/20 Last Taken 09/12/20 08:00] gabapentin 300 mg capsule 300 mg PO BID cap 03/31/19 [History Confirmed 09/21/20 Last Taken 09/12/20 08:00] hydrochlorothiazide 25 mg tablet 25 mg PO DAILY tab 03/31/19 [History Confirmed 09/21/20 Last Taken 09/12/20 08:00] hydroxyurea 500 mg capsule 500 mg PO DAILY cap 03/31/19 [History Confirmed 09/21/20 Last Taken 09/12/20 08:00] tamsulosin 0.4 mg capsule 0.4 mg PO QDAY cap 03/31/19 [History Confirmed 09/21/20 Last Taken 09/12/20 08:00] docusate sodium 100 mg capsule 100 mg PO QDAY 10/03/19 [History Confirmed 09/21/20 Last Taken 09/12/20 08:00] finasteride 5 mg tablet 5 mg PO QDAY 10/03/19 [History Confirmed 09/21/20 Last Taken 09/12/20 08:00] amlodipine 5 mg tablet 5 mg PO BID #180 tab 05/23/20 [Rx Confirmed 09/21/20 Last Taken 09/12/20 08:00] aspirin 162 mg PO DAILY 09/21/20 [History Confirmed 09/21/20 Last Taken Unknown] COURSE Hospital Course Hospital course: Mr. Dickson Jarrell is a 84 year old M who presented to the ED because he was not urinating. Patient originally presented to [facility] and found to have a urinary obstruction and was transferred to [facility] with inability to place stent and then was transferred up to [place] for nephrostomy tube. He has been home very long and was doing well however this morning suddenly he produced no urine. Also complained of some dysuria. In the ED he was evaluated and had imaging and case also discussed with Dr. Hernandez. The nephrostomy tube seems to be working and on imaging no obstructions. Dr. Hernandez is concerned is probably a toxic effect from Bactrim that he was discharged on. He also takes hydrochlorothiazide and lisinopril. He denies any fever chills nausea vomiting chest pain shortness of breath diarrhea. 09/21 With no new complaints. Good urine output. Looks like the [id number] lab from the ED was inaccurate because the actual blood draw showed a decent creatinine. Pending urine culture, on Ceftriaxone. 09/22 Discharged to home, completed time course with antibiotics (Ceftriaxone while in patient as Bactrim was discontinued on admission), did not continue antibiotic for discharge. Follow up with urology. Physical exam Head: Atraumatic, normal inspection. Eyes: normal appearance, no scleral icterus. Neck: full ROM Respiratory: no respiratory distress. Cardiovascular: normal rate and rhythm, S1, S2. GI/Abdominal: soft, nontender, no guarding, : right nephrostomy tube Extremities: full range of motion, nontender. Neurological: CN II-XII intact, intact motor, intact sensation. Psychiatric: normal mood. Skin: warm, normal color Discharge diagnosis: Obstructive uropathy Time Spent with Patient Time attestation: Total time spent providing and/or coordinating discharge services: EXAM Constitutional Vitals: Temp Pulse Resp BP Pulse Ox 97.6 F 65 20 152/64 98 09/22/20 08:00 09/21/20 19:52 09/22/20 08:00 09/22/20 08:00 09/22/20 08:00 Discharge Data Data Completed and Pending Labs on day of discharge: Labs from last 24 hours 09/22/20 05:00 Sodium 137 Potassium 4.4 Chloride 103 Carbon Dioxide 24 Anion Gap 10.0 BUN 32 H Creatinine 1.4 H GFR Calculation 45 Glucose 92 Uric Acid 6.8 Calcium 8.3 L Phosphorus 3.1 Magnesium 1.8 Total Bilirubin 0.3 Direct Bilirubin < 0.2 GGT 30 AST 18 ALT 16 Alkaline Phosphatase 60 Lactate Dehydrogenase 343 H Total Protein 5.5 L Albumin 3.3 Globulin 2.2 Albumin/Globulin Ratio 1.5 Triglycerides 216 H Preliminary micro results at discharge 09/20/20 18:02 Blood Culture - Preliminary Blood 09/20/20 17:59 Blood Culture - Preliminary Blood 09/20/20 15:04 Urine Culture - Preliminary Urine - Kidney, Right 09/20/20 15:03 Urine Culture - Preliminary Urine - Clean Void Mid-Stream Discharge Plan Patient/Caregiver Discharge Instructions Activity: increase activity as tolerated Diet: Regular Diet Prescriptions: Continued cholecalciferol (vitamin D3) 2,000 unit capsule 2,000 unit PO QDAY Qty: 90 RF: 4 tamsulosin [Flomax] 0.4 mg capsule 0.4 mg PO QDAY RF: 0 apixaban 5 mg tablet 5 mg PO BID RF: 0 finasteride 5 mg tablet 5 mg PO QDAY RF: 0 docusate sodium 100 mg capsule 100 mg PO QDAY RF: 0 amlodipine 5 mg tablet 5 mg PO BID Qty: 180 RF: 4 atorvastatin 20 MG tablet 20 mg PO HS RF: 0 lisinopril 20 MG tablet 20 mg PO DAILY RF: 0 pantoprazole 40 MG tablet 40 mg PO QAMAC RF: 0 gabapentin 300 mg capsule 300 mg PO BID RF: 0 hydroxyurea 500 mg capsule 500 mg PO DAILY RF: 0 hydrochlorothiazide 25 mg tablet 25 mg PO DAILY RF: 0 aspirin 325 MG tablet 162 mg PO DAILY RF: 0 Follow Up Plan Follow up with: Zaida Delgado ARNP [Primary Care Provider] - Patient Disposition: Home, Self-Care Rehab Potential: Fair Overall status at discharge: patient is progressing back to baseline Discharge Orders: Discharge Order (Routine); Ordered 09/22/20 Ordered By: Elie AMBROSIO VTE Deep Vein Thrombosis/Pulmonary Embolism Present on Admission: No
== END 2020-09-22 11:30 | disposition home or self-care (01) | DRG 700 ==
LOC: ED 13:17 → ICU 21:26
PROVIDERS: ADMIT Internal Medicine; ATTEND Internal Medicine

== ENCOUNTER 2021-11-17 07:45 | Inpatient (IN) ==
--- NOTE | 2021-11-17 09:11 | XRay Report ---
CLINICAL INFORMATION: COMPARISON: 10/22/2020 TECHNIQUE: Portable FINDINGS: The heart size, mediastinum and pulmonary vessels are unremarkable. The lungs are clear. There are no effusions. The bones and soft tissues are within normal limits. IMPRESSION: Normal chest. Interpreted and Authenticated by: Reji Kim 11/17/21
[2021-11-17 09:16] LABS: Basophils # (Auto) 0.09 K/mcL (0.00-0.30); Basophils % (Auto) 0.4 % (0.0-2.0); Eosinophils # (Auto) 0.67 K/mcL (0.00-0.70); Eosinophils % (Auto) 3.1 % (0.0-7.0); Hematocrit 36.5 % (40.1-51.0); Hemoglobin 11.2 g/dL (13.7-17.5); Lymphocytes # (Auto) 1.02 K/mcL (1.50-4.80); Lymphocytes % (Auto) 4.7 % (15.5-49.0); Mean Cell Volume 85.1 fL (80.0-100.0); Mean Corpuscular HGB Conc 30.7 g/dL (31.0-36.0); Mean Platelet Volume 10.1 fL (7.4-10.4); Monocytes # (Auto) 0.85 K/mcL (0.10-0.90); Monocytes % (Auto) 3.9 % (1.0-12.0); Neutrophils % (Auto) 85.8 % (38.0-78.0); Platelet Count 684 K/mcL (140-440); RBC 4.29 M/mcL (4.63-6.08); Red Cell Distribution Width 20.6 % (11.5-14.5); WBC 21.7 K/mcL (4.5-11.0)
[2021-11-17 09:34] LABS: Blood Urea Nitrogen 66 mg/dL (8-23); Calcium 9.3 mg/dL (8.6-10.4); Carbon Dioxide 26 mmol/L (22-30); Chloride 106 mmol/L (96-108); Glomerular Filtration Rate 29; Glucose 166 mg/dL (70-105)
[2021-11-17] MEDS ORDERED: 0.9 % SODIUM CHLORIDE 500 ML IV ONE (09:38)
--- NOTE | 2021-11-17 09:46 | Cat Scan Report ---
CLINICAL INFORMATION: Flank pain. Recent fall COMPARISON: Abdomen and pelvic CT without contrast 10/15/2018 and 08/10/2021 TECHNIQUE: 0.625 mm helical slices were obtained from the mid heart through the subtrochanteric regions. Following reconstruction, 2.5 mm sagittal, coronal and axial reformatted images were processed and reviewed at bone and soft tissue windows.The exam was performed using radiation dose optimization techniques including, but not limited to, automated exposure control, adjustment of the mA and/or kV according to patient size and use of iterative reconstruction technique. FINDINGS: The lung bases show scattered atelectasis and/or fibrosis. There are effusions. The visualized heart is grossly normal. Abdominal images show the noncontrasted liver is normal in size and attenuation: 10.6 cm cyst in the superior right hepatic lobe and a 4.5 cm low-attenuation, likely, hyperdense cyst, in the lateral segment left hepatic lobe stable since [address] over two years ago. No significant hepatic abnormality. Noncontrasted gallbladder and bile ducts, adrenal glands, pancreas and aorta are normal in size, configuration and attenuation without focal lesion. Mild (16 cm in length) splenomegaly is unchanged from the most recent study four months ago. There is no free air, free fluid or adenopathy. Both noncontrasted kidneys are normal and symmetric in size, position, configuration and attenuation: The right is 12.4 cm in length and the left is 11 cm in length. Small nonobstructing stones are seen in the upper collecting system of the right kidney: 2 mm inferior calyx right kidney, 3 mm mid calyx right kidney, and 8 mm superior calyx right kidney. No hydronephrosis or obstructing stone. A 7 mm cyst in the anterior cortex mid right kidney is unchanged. Pelvic images show marked only yet stable, prostate enlargement 6.7 x 6.8 cm. Moderate wall thickening of urinary bladder with asymmetric involving the right lateral wall which is unchanged findings most compatible with chronic bladder outlet narrowing. The seminal vesicles are normal. Few sigmoid diverticula appreciated, but no evidence of diverticulitis. The remainder of the large bowel, inferior pericecal appendix, small bowel and stomach are grossly normal. 4.5 severe left inguinal hernia contains only mesenteric fat. It results in mild venous congestion of the adjacent spermatic cord-as previously seen Bone windows show no osseous abnormality. IMPRESSION: 1. No cause identified for acute abdominal pain. 2. Tiny nonobstructing stones within the upper collecting system of the right kidney. 3. Mild splenomegaly-stable since 08/10/2021 but new from the 2019 exam. 4. Marked prostate enlargement diffuse wall thickening urinary bladder suggesting chronic bladder outlet narrowing unchanged. 5. 4.5 cm left inguinal hernia consisting mostly mesenteric fat. No change. 6. Two large hepatic cysts as stable for over two years Interpreted and Authenticated by: Reji Kim 11/17/21
[2021-11-17 10:27] LABS: Appearance,Urine Slightly Cloudy (Clear); Bilirubin,Urine Negative (Negative); Color,Urine Yellow; Culture Indicated,Urine yes; Ketones,Urine Negative (Negative); Leukocyte Esterase,Urine Small /uL (Negative); Mucus,Urine FEW /hpf; Nitrate,Urine Negative (Negative); Protein,Urine >=300 mg/dL mg/dL (Negative); Urine Blood Small ery/mcL (Negative); Urine RBC 8 /hpf (0-3); Urine Squamous Epithelial Cell 0 /hpf (0-4); Urine Transitional Epi Cells < 1 /hpf (0-2); Urine WBC > 182 /hpf (0-4); Urobilinogen,Urine Normal
[2021-11-17] MEDS ORDERED: ACETAMINOPHEN 1,000 MG/100 ML BAG IV ONE (12:11)
--- NOTE | 2021-11-17 13:06 | Emergency Department Note ---
HPI General Chief complaint: Back Pain/Injury Stated complaint: back pain, recent falls Time Seen by Provider: 11/17/21 07:49 Source: patient, family and EMS Mode of arrival: EMS Limitations: no limitations History of Present Illness HPI Narrative: Narrative: Patient presents emergency department for evaluation of low back pain and frequent falls. He has had several recent falls. He injured his back in a fall. He is complains of pain in the left low back and new loss of stool continence. He lives by himself. He is here with his daughter. No other complaints. Related Data Home Medications Medication Instructions Recorded Confirmed atorvastatin 20 mg tablet 20 mg PO HS 05/13/17 11/17/21 lisinopril 20 mg tablet 20 mg PO DAILY 05/13/17 11/17/21 apixaban 5 mg tablet 5 mg PO BID 03/31/19 11/17/21 tamsulosin 0.4 mg capsule (Flomax) 0.4 mg PO QDAY 03/31/19 11/17/21 docusate sodium 100 mg capsule 100 mg PO QDAY 10/03/19 11/17/21 finasteride 5 mg tablet 5 mg PO HS 10/03/19 11/17/21 cyanocobalamin (vitamin B-12) 1 tab PO QDAY 10/17/20 11/17/21 aspirin 81 mg tablet 162 mg PO QDAY 10/23/20 11/17/21 pantoprazole 40 mg tablet,delayed 40 mg PO QDAY 02/18/21 11/17/21 release gabapentin 300 mg capsule 300 mg PO BID 09/23/21 11/17/21 torsemide 10 mg tablet 40 mg PO BID 11/10/21 11/17/21 Previous Rx's Medication Instructions Recorded cholecalciferol (vitamin D3) 50 2,000 unit PO QDAY #90 caps 11/29/17 mcg (2,000 unit) capsule magnesium oxide 400 mg PO QDAY #90 tabs 03/26/21 Allergies Allergy/AdvReac Type Severity Reaction Status Date / Time fish derived Allergy Intermediate Hives Verified 11/17/21 08:03 doxazosin Allergy Unknown Unknown Verified 11/17/21 08:03 niacin Allergy Unknown Unknown Verified 11/17/21 08:03 Sulfa (Sulfonamide AdvReac Intermediate Rash Verified 11/17/21 08:03 Antibiotics) Review of Systems ROS ROS Narrative: Narrative: As above, all other systems reviewed and negative. [facility] Narrative Patient History Narrative: Narrative: Medical/Surgical/Family History All Active Problems (Updated 11/17/21 @ 14:50 by Ronnie Hitchcock MD) Leg pain (Chronic) History of amputation of toe (Chronic) Foot ulcer (Chronic) PVD (peripheral vascular disease) (Chronic) Hydroxyurea adverse reaction (Chronic) Diastolic heart failure (Chronic) Carotid atherosclerosis (Chronic) Degeneration of lumbar intervertebral disc (Chronic) GERD (gastroesophageal reflux disease) (Chronic) Murmur (Chronic) Deep vein thrombosis of left lower extremity (Chronic) Cardiomegaly (Chronic) Cellulitis (Chronic) Edema (Chronic) Urethral calculus (Chronic) On warfarin therapy (Chronic) group home 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) 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 (Chronic) Polycythemia (Chronic) Hemangioma (Chronic) Benign essential hypertension (Chronic) BPH (benign prostatic hyperplasia) (Chronic) Osteoarthritis (Chronic) Inguinal hernia (Chronic) Back pain (Chronic) Persistent proteinuria (Chronic) Iron deficiency (Chronic) Vitamin D deficiency (Chronic) Enlarged prostate with lower urinary tract symptoms (LUTS) (Chronic) Urinary bladder stone (Chronic) Gross hematuria (Chronic) UTI (urinary tract infection) (Chronic) History of tonsillectomy (Chronic) History of hernia repair (Chronic) History of suprapubic catheter (Chronic) History of prostate surgery (Chronic ~12/02/18) Actinic keratosis (Chronic) Lentigines (Chronic) DVT (deep venous thrombosis) (Chronic) Sebaceous cyst (Chronic) Solar elastosis (Chronic) Skin cancer (Chronic) Ureteral stone (Chronic) Nephrolithiasis (Chronic) Localized edema due to fluid overload (Chronic) Ischemic toe (Chronic) Bilateral hearing loss (Chronic) Arthritis (Chronic) Blue toe syndrome (Chronic) Frequency of urination (Chronic) Hypercholesterolemia (Chronic) Hypertension (Chronic) Popliteal artery stenosis (Chronic) Numbness in right leg (Chronic) Pain in right leg (Chronic) Pain and swelling of right lower extremity (Chronic) Dry eyes (Chronic) Dry mouth (Chronic) Difficulty hearing (Chronic) Ankle swelling (Chronic) Hematuria (Chronic) Urinary catheter in place (Chronic) Muscle weakness (Chronic) Arthralgia (Chronic) Numbness (Chronic) Easy bruising (Chronic) Gangrene (Chronic) Other primary thrombophilia (Chronic) Right renal stone (Acute) Hypomagnesemia (Acute) Bilateral renal stones (Acute) Granulocytosis (Acute) Acute cystitis with hematuria (Acute) Right knee injury (Acute) Hematuria (Acute) Lesion of bladder (Acute) Chronic kidney disease (CKD) stage G4/A3, severely decreased glomerular filtration rate (GFR) between 15-29 mL/min/1.73 square meter and albuminuria creatinine ratio greater than 300 mg/g (Chronic) 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) Chronic cystitis (Acute) Swelling of knee joint, left (Acute) Venous stasis ulcer of ankle (Acute) Effusion of knee joint, left (Acute) Left flank pain (Acute) Acute left lumbar radiculopathy (Acute) Discitis (Acute) Medical History Actinic keratosis Ankle swelling Arthralgia Arthritis Back pain Bilateral hearing loss Blue toe syndrome Right great toe BPH (benign prostatic hyperplasia) Cardiomegaly Carotid atherosclerosis Cellulitis Deep vein thrombosis of left lower extremity Degeneration of lumbar intervertebral disc Diastolic heart failure Difficulty hearing Dry eyes Dry mouth DVT (deep venous thrombosis) Right lower extremity Easy bruising Edema Enlarged prostate with lower urinary tract symptoms (LUTS) Foot ulcer Frequency of urination Gangrene Toe GERD (gastroesophageal reflux disease) Gross hematuria Hemangioma Hematuria History of amputation of toe Bilateral great toes Hydroxyurea adverse reaction Hypercholesterolemia Hypertension 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 Inguinal hernia Iron deficiency Ischemic toe Leg pain Lentigines Localized edema due to fluid overload group home current use of anticoagulant Murmur Muscle weakness Nephrolithiasis Numbness Both Feet Numbness in right leg On warfarin therapy Osteoarthritis Other primary thrombophilia Hypercoagulability state Pain and swelling of right lower extremity Pain in right leg Persistent proteinuria Polycythemia Popliteal artery stenosis PVD (peripheral vascular disease) Sebaceous cyst Skin cancer Solar elastosis Urethral calculus Urinary catheter in place UTI (urinary tract infection) IV antibiotics Vitamin D deficiency Surgical History History of amputation (~2017) Bilateral Big toe History of angioplasty (~01/27/17) Right Foot History of ankle surgery Achilles tendon repair History of bladder stone (~11/11/15) Remove History of cystoscopy (~11/11/15) History of hernia repair History of partial nephrectomy Left History of prostate surgery (~12/02/18) History of suprapubic catheter History of surgery IVC filter removal 02/12/19, ICV filter placement 04/01/16 History of surgery DVT lysis 11/18/18, TPA lysis 04/02/16 History of surgery skin cancer removal-01/17/2021. History of tonsillectomy Family History Mother Leukemia Father , Age 54 Stroke Cerebral hemorrhage Brother Stroke Heart disease Coronary arteriosclerosis Social History Smoking Status: Never smoker Alcohol Intake Frequency: does not drink Substance Use: does not use Exam Narrative Narrative: Narrative: General Limitations: no limitations General appearance: Present alert Head Head: Present atraumatic, normocephalic and normal inspection Eye Eye: Present normal appearance, PERRL and EOMI ENT ENT: Present normal exam Neck Neck: Present normal inspection Respiratory Respiratory: Absent respiratory distress Adbominal Abdominal: Present soft; Absent distention, tenderness, guarding, rebound or rig idity Extremities Extremities: Present normal inspection and full ROM Back Back: Present normal inspection and tenderness (Tenderness palpation of the lumbar spine) Neurological Neurological: Present alert, oriented X3, CN II-XII intact and other (DTRs in lower extremities are symmetric, good EHL strength bilaterally, equal ankle flexion extension strength bilaterally, equal knee flexion extension strength bilaterally.); Absent motor sensory deficit Psychiatric Psychiatric: Present normal affect and normal mood Skin Skin: Present warm (WNL) and dry Course Vital Signs Vital signs: Vital Signs Temperature 98.7 F 11/17/21 08:00 Pulse Rate 78 11/17/21 08:00 Respiratory Rate 16 11/17/21 08:00 Blood Pressure 191/57 11/17/21 08:00 Pulse Oximetry (%) 96 11/17/21 08:00 Oxygen Delivery Method 11/17/21 08:00 Temperature 98.7 F 11/17/21 08:00 Pulse Rate 77 11/17/21 12:46 Respiratory Rate 16 11/17/21 08:00 Blood Pressure 162/72 11/17/21 14:46 Pulse Oximetry (%) 96 11/17/21 12:46 Oxygen Delivery Method 11/17/21 08:00 [facility] MDM Narrative Medical decision making narrative: Narrative: MRI as read by radiology shows evidence of possible discitis. Patient's white blood cell count is elevated. Spoke with the on-call hospitalist. Case reviewed in detail with phone. Hospitalist agrees admission. Blood cultures were added. CRP and ESR added. Discussed findings with the patient and the family. Their questions were answered. They are agreeable with the plan. Lab Data Result diagrams: 11/17/21 08:45 11/17/21 08:45 Labs: Lab Results 11/17/21 11/17/21 11/17/21 Range/Units 08:36 08:45 08:45 WBC 21.7 H (4.5-11.0) K/mcL RBC 4.29 L (4.63-6.08) M/mcL Hgb 11.2 L (13.7-17.5) g/dL Hct 36.5 L (40.1-51.0) % MCV 85.1 (80.0-100.0) fL MCH 26.1 (26.0-34.0) pg MCHC 30.7 L (31.0-36.0) g/dL RDW 20.6 H (11.5-14.5) % Plt Count 684 H (140-440) K/mcL MPV 10.1 (7.4-10.4) fL Immature Gran % (Auto) 2.1 H (0.0-0.5) % Neut % (Auto) 85.8 H (38.0-78.0) % Lymph % (Auto) 4.7 L (15.5-49.0) % Bullitt % (Auto) 3.9 (1.0-12.0) % Eos % (Auto) 3.1 (0.0-7.0) % Baso % (Auto) 0.4 (0.0-2.0) % Lymph # (Auto) 1.02 L (1.50-4.80) K/mcL Bullitt # (Auto) 0.85 (0.10-0.90) K/mcL Eos # (Auto) 0.67 (0.00-0.70) K/mcL Baso # (Auto) 0.09 (0.00-0.30) K/mcL Immature Gran # 0.46 H (0.00-0.05) K/mcl Absolute Neutrophils 18.62 H (1.80-8.00) K/mcL Sodium 145 (133-145) mmol/L Potassium 5.5 H (3.3-5.1) mmol/L Chloride 106 (96-108) mmol/L Carbon Dioxide 26 (22-30) mmol/L Anion Gap 13.0 (8.0-16.0) BUN 66 H (8-23) mg/dL Creatinine 2.0 H (0.7-1.2) mg/dL POC Creatinine 2.2 H (0.6-1.2) GFR Calculation 29 Glucose 166 H (70-105) mg/dL Calcium 9.3 (8.6-10.4) mg/dL C-Reactive Protein (0.03-0.80) mg/dL Urine Color Urine Appearance (Clear) Urine pH (5.0-9.0) Ur Specific Umpire (1.000-1.035) Urine Protein (Negative) mg/dL Urine Glucose (UA) (Negative) mg/dL Urine Ketones (Negative) mg/dL Urine Occult Blood (Negative) taisha/mcL Urine Nitrate (Negative) Urine Bilirubin (Negative) mg/dL Urine Urobilinogen mg/dL Ur Leukocyte Esterase (Negative) /uL Urine RBC (0-3) /hpf Urine WBC (0-4) /hpf Ur Squamous Epith Cells (0-4) /hpf Ur Transition Epith Cell (0-2) /hpf Urine Bacteria (0) /hpf Urine Mucus (None) /hpf Ur Culture Indicated? 11/17/21 11/17/21 Range/Units 08:45 09:40 WBC (4.5-11.0) K/mcL RBC (4.63-6.08) M/mcL Hgb (13.7-17.5) g/dL Hct (40.1-51.0) % MCV (80.0-100.0) fL MCH (26.0-34.0) pg MCHC (31.0-36.0) g/dL RDW (11.5-14.5) % Plt Count (140-440) K/mcL MPV (7.4-10.4) fL Immature Gran % (Auto) (0.0-0.5) % Neut % (Auto) (38.0-78.0) % Lymph % (Auto) (15.5-49.0) % Bullitt % (Auto) (1.0-12.0) % Eos % (Auto) (0.0-7.0) % Baso % (Auto) (0.0-2.0) % Lymph # (Auto) (1.50-4.80) K/mcL Bullitt # (Auto) (0.10-0.90) K/mcL Eos # (Auto) (0.00-0.70) K/mcL Baso # (Auto) (0.00-0.30) K/mcL Immature Gran # (0.00-0.05) K/mcl Absolute Neutrophils (1.80-8.00) K/mcL Sodium (133-145) mmol/L Potassium (3.3-5.1) mmol/L Chloride (96-108) mmol/L Carbon Dioxide (22-30) mmol/L Anion Gap (8.0-16.0) BUN (8-23) mg/dL Creatinine (0.7-1.2) mg/dL POC Creatinine (0.6-1.2) GFR Calculation Glucose (70-105) mg/dL Calcium (8.6-10.4) mg/dL C-Reactive Protein 2.40 H (0.03-0.80) mg/dL Urine Color Yellow Urine Appearance Slightly cloudy A (Clear) Urine pH 6.0 (5.0-9.0) Ur Specific Umpire 1.020 (1.000-1.035) Urine Protein >=300 mg/dl A (Negative) mg/dL Urine Glucose (UA) 100 mg/dl A (Negative) mg/dL Urine Ketones Negative (Negative) mg/dL Urine Occult Blood Small A (Negative) taisha/mcL Urine Nitrate Negative (Negative) Urine Bilirubin Negative (Negative) mg/dL Urine Urobilinogen Normal mg/dL Ur Leukocyte Esterase Small A (Negative) /uL Urine RBC 8 H (0-3) /hpf Urine WBC > 182 H (0-4) /hpf Ur Squamous Epith Cells 0 (0-4) /hpf Ur Transition Epith Cell < 1 (0-2) /hpf Urine Bacteria None (0) /hpf Urine Mucus Few A (None) /hpf Ur Culture Indicated? yes Discharge Plan Patient/Caregiver Discharge Instructions Pt seen by [facility] STRINGER/PA only: No Clinical Impression: Discitis Patient Disposition: Xfer As Inpt ([facility]) Condition: Fair Follow up with: Zaida Delgado ARNP [Primary Care Provider] - Prescriptions: No Action cholecalciferol (vitamin D3) 2,000 unit capsule 2,000 unit PO QDAY Qty: 90 4RF tamsulosin [Flomax] 0.4 mg capsule 0.4 mg PO QDAY apixaban 5 mg tablet 5 mg PO BID Rx Instructions: 10 mg orally bid for 7 days then mg orally bid finasteride 5 mg tablet 5 mg PO HS docusate sodium 100 mg capsule 100 mg PO QDAY pantoprazole 40 mg tablet,delayed release (DR/EC) 40 mg PO QDAY Label Comments: Not sure what doctor order it. magnesium oxide 400 mg magnesium tablet 400 mg PO QDAY Qty: 90 3RF atorvastatin 20 MG tablet 20 mg PO HS lisinopril 20 MG tablet 20 mg PO DAILY gabapentin 300 mg capsule 300 mg PO BID Rx Instructions: takes 600 mg in the morning and 300 in the evening. cyanocobalamin (vitamin B-12) Tablet,Chewable 1 tab PO QDAY aspirin 81 mg tablet 162 mg PO QDAY torsemide 10 mg tablet 40 mg PO BID Rx Instructions: AM and noon
--- NOTE | 2021-11-17 14:03 | Magnetic Resonance Report ---
CLINICAL INFORMATION: Back pain and multiple recent falls COMPARISON: Abdomen and pelvic CT 08/10/2021. Lumbar spine CT 11/13/2021 TECHNIQUE: Sagittal T1 FLAIR, STIR, fast spin echo T2, coronal T2 and axial T2 weighted images were acquired. FINDINGS: The lumbar spine shows mild rightward curve.. Conus medullaris ends at T12 homogeneous signal. Cauda equina roots are normal. No soft tissue abnormalities. At T12-L1 there is minimal annular bulge. At L1-2 moderate broad disc protrusion with left-sided asymmetry and facet arthropathy result in moderate left IV foraminal narrowing no change. At L2-3, there is increased signal within the nucleus pulposus with adjacent endplate irregularity with equivocal increased signal in the adjacent inferior L2 and superior L3 endplates. Findings suggestive, but not diagnostic, of discitis. At this level, there is also moderate broad disc spur complex left-sided asymmetry facet arthropathy resulting in moderate left IV foraminal and left lateral recess narrowing. There is mild impingement exiting left L2 and descending left L3 nerve root. Mild central canal stenosis. At L3-4, moderate broad disc spur complex with left-sided asymmetry and facet arthropathy result in moderate central canal moderate bilateral lateral recess and bilateral IV foraminal narrowing. There is mild impingement of the exiting L3 and descending L4 nerve roots At L4-5, moderate broad disc protrusion and facet arthropathy result in mild central canal and moderate bilateral IV foraminal narrowing mild impingement exiting L4 nerve roots. At L5-S1 moderate broad disc protrusion and facet arthropathy result in moderate right and mild left IV foraminal narrowing. IMPRESSION: 1. Possible L2-3 discitis. Please correlate with C-reactive protein, white blood cell, sedimentation rate and other inflammatory serologies. If there is clinical support, consider IV antibiotics and repeat MRI with gadolinium in 2-3 days. 2. Multilevel degeneration. 3. Wall thickening of urinary bladder suggesting chronic bladder outlet due to known marked enlarged prostate. Interpreted and Authenticated by: Reji Kim 11/17/21
[2021-11-17] MEDS ORDERED: ACETAMINOPHEN 325 MG TABLET PO PRN (16:04)
[2021-11-17] MEDS ORDERED: ONDANSETRON 4 MG/2 ML VIAL IV PRN (16:04)
[2021-11-17] MEDS ORDERED: HYDROcodone/APAP 5/325MG TABLET PO PRN (16:04)
[2021-11-17] MEDS ORDERED: POLYETHYLENE GLYCOL 3350 17 GM PACKET PO PRN (16:04)
[2021-11-17] MEDS ORDERED: HYDROmorphone 0.5 MG/0.5 ML SYRINGE IV PRN ×2 (16:04)
--- NOTE | 2021-11-17 16:10 | Internal Med History&Physical ---
HPI History of Present Illness Patient information: Note initiated : 11/17/21 at 3:57 pm Service Date, if different from initiated Date: [] Patient: Ildefonso Forman Jr 86 y/o M admitted on 11/17/21 for back pain, recent falls. Chief Complaint: [] History of present illness: Mr. Dickson Jarrell is a 86 year old male with a history of hypertension, chronic kidney disease stage IV, diastolic heart failure, peripheral vascular disease requiring toe amputations, DVT on chronic anticoagulation, chronic leukocytosis, polycythemia vera and chronic thrombocytosis, prostate enlargement, degenerative disc disease who lives alone and was brought to the emergency department by his daughter for evaluation of the back pain and generalized weakness. The history was taken from the patient and his daughter, they say that the patient has been having severe back pain for about 2 weeks that has progressively worsened to the point of the patient is now nearly bedbound. The patient was seen in the emergency department on 10/29/2021 for a knee effusion, discharged to home after a arthrocentesis that appeared fairly benign. The patient was seen again in the emergency department on 11/13/2021 for back pain, discharged to home after evaluation which included a CT lumbar spine without contrast that showed advanced degenerative disc disease throughout the lumbar spine with spinal canal stenosis at L3-4 and L4-5. Today, the patient underwent a CT abdomen pelvis without contrast which did not show any cause of acute abdominal pain, there were multiple chronic findings but no explanation for the patient's back pain. Chest x-ray did not show any acute changes. An MRI lumbar spine without contrast showed possible L2-3 discitis, multilevel degenerative disc disease. An MRI with contrast was not due due to the patient's advanced chronic kidney disease. The patient was afebrile in the emergency department, he does have a slight increase in white blood cell count however does have chronic leukocytosis at baseline. Hospital medicine was consulted for ad mission. We did discuss CODE STATUS in detail prior to admission, the patient wishes to be DNR/DNI. Review of systems Constitutional: [positive for chills,no fevers Eyes: no vision changes or pain Cardiovascular: no chest pain, no palpitations Respiratory: no cough or dyspnea Gastrointestinal: no abdominal pain, no nausea, vomiting, or diarrhea Genitourinary: no dysuria or difficulty voiding Musculoskeletal: positive for back pain, no arthralgia or myalgia Integumentary: Positive for skin tear on left elbow and chronic wound on left leg. Neurological: no focal weakness or numbness Psychiatric: no anxiety or depression Physical exam Head: Atraumatic, normal inspection. Eyes: normal appearance, no scleral icterus. Neck: full ROM Respiratory: no respiratory distress. Cardiovascular: normal rate and rhythm, S1, S2. GI/Abdominal: soft, nontender, no guarding. Extremities: Skin wound on left elbow covered with bandage, chronic appearing ulcer on left leg, several remote toe amputations. Neurological: CN II-XII intact, intact motor, intact sensation. Psychiatric: normal mood. Skin: warm, normal color PFSH PFSH All Active Problems (Updated 11/17/21 @ 14:50 by Ronnie Hitchcock MD) Leg pain (Chronic) History of amputation of toe (Chronic) Foot ulcer (Chronic) PVD (peripheral vascular disease) (Chronic) Hydroxyurea adverse reaction (Chronic) Diastolic heart failure (Chronic) Carotid atherosclerosis (Chronic) Degeneration of lumbar intervertebral disc (Chronic) GERD (gastroesophageal reflux disease) (Chronic) Murmur (Chronic) Deep vein thrombosis of left lower extremity (Chronic) Cardiomegaly (Chronic) Cellulitis (Chronic) Edema (Chronic) Urethral calculus (Chronic) On warfarin therapy (Chronic) correction 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) 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 (Chronic) Polycythemia (Chronic) Hemangioma (Chronic) Benign essential hypertension (Chronic) BPH (benign prostatic hyperplasia) (Chronic) Osteoarthritis (Chronic) Inguinal hernia (Chronic) Back pain (Chronic) Persistent proteinuria (Chronic) Iron deficiency (Chronic) Vitamin D deficiency (Chronic) Enlarged prostate with lower urinary tract symptoms (LUTS) (Chronic) Urinary bladder stone (Chronic) Gross hematuria (Chronic) UTI (urinary tract infection) (Chronic) History of tonsillectomy (Chronic) History of hernia repair (Chronic) History of suprapubic catheter (Chronic) History of prostate surgery (Chronic ~12/02/18) Actinic keratosis (Chronic) Lentigines (Chronic) DVT (deep venous thrombosis) (Chronic) Sebaceous cyst (Chronic) Solar elastosis (Chronic) Skin cancer (Chronic) Ureteral stone (Chronic) Nephrolithiasis (Chronic) Localized edema due to fluid overload (Chronic) Ischemic toe (Chronic) Bilateral hearing loss (Chronic) Arthritis (Chronic) Blue toe syndrome (Chronic) Frequency of urination (Chronic) Hypercholesterolemia (Chronic) Hypertension (Chronic) Popliteal artery stenosis (Chronic) Numbness in right leg (Chronic) Pain in right leg (Chronic) Pain and swelling of right lower extremity (Chronic) Dry eyes (Chronic) Dry mouth (Chronic) Difficulty hearing (Chronic) Ankle swelling (Chronic) Hematuria (Chronic) Urinary catheter in place (Chronic) Muscle weakness (Chronic) Arthralgia (Chronic) Numbness (Chronic) Easy bruising (Chronic) Gangrene (Chronic) Other primary thrombophilia (Chronic) Right renal stone (Acute) Hypomagnesemia (Acute) Bilateral renal stones (Acute) Granulocytosis (Acute) Acute cystitis with hematuria (Acute) Right knee injury (Acute) Hematuria (Acute) Lesion of bladder (Acute) Chronic kidney disease (CKD) stage G4/A3, severely decreased glomerular filtration rate (GFR) between 15-29 mL/min/1.73 square meter and albuminuria creatinine ratio greater than 300 mg/g (Chronic) 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) Chronic cystitis (Acute) Swelling of knee joint, left (Acute) Venous stasis ulcer of ankle (Acute) Effusion of knee joint, left (Acute) Left flank pain (Acute) Acute left lumbar radiculopathy (Acute) Discitis (Acute) Medical History Actinic keratosis Ankle swelling Arthralgia Arthritis Back pain Bilateral hearing loss Blue toe syndrome Right great toe BPH (benign prostatic hyperplasia) Cardiomegaly Carotid atherosclerosis Cellulitis Deep vein thrombosis of left lower extremity Degeneration of lumbar intervertebral disc Diastolic heart failure Difficulty hearing Dry eyes Dry mouth DVT (deep venous thrombosis) Right lower extremity Easy bruising Edema Enlarged prostate with lower urinary tract symptoms (LUTS) Foot ulcer Frequency of urination Gangrene Toe GERD (gastroesophageal reflux disease) Gross hematuria Hemangioma Hematuria History of amputation of toe Bilateral great toes Hydroxyurea adverse reaction Hypercholesterolemia Hypertension 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 Inguinal hernia Iron deficiency Ischemic toe Leg pain Lentigines Localized edema due to fluid overload correction current use of anticoagulant Murmur Muscle weakness Nephrolithiasis Numbness Both Feet Numbness in right leg On warfarin therapy Osteoarthritis Other primary thrombophilia Hypercoagulability state Pain and swelling of right lower extremity Pain in right leg Persistent proteinuria Polycythemia Popliteal artery stenosis PVD (peripheral vascular disease) Sebaceous cyst Skin cancer Solar elastosis Urethral calculus Urinary catheter in place UTI (urinary tract infection) IV antibiotics Vitamin D deficiency Surgical History History of amputation (~2017) Bilateral Big toe History of angioplasty (~01/27/17) Right Foot History of ankle surgery Achilles tendon repair History of bladder stone (~11/11/15) Remove History of cystoscopy (~11/11/15) History of hernia repair History of partial nephrectomy Left History of prostate surgery (~12/02/18) History of suprapubic catheter History of surgery IVC filter removal 02/12/19, ICV filter placement 04/01/16 History of surgery DVT lysis 11/18/18, TPA lysis 04/02/16 History of surgery skin cancer removal-01/17/2021. History of tonsillectomy Family History Mother Leukemia Father , Age 54 Stroke Cerebral hemorrhage Brother Stroke Heart disease Coronary arteriosclerosis Social History household members: alone marital status: education level: college occupational status: retired occupation: [employer] smoking status: Never smoker alcohol intake frequency: does not drink substance use type: does not use MEDS/ALLERGIES Home Medications and Allergies Home Medications Medication Instructions Recorded Confirmed Type atorvastatin 20 mg tablet 20 mg PO HS 05/13/17 11/17/21 History lisinopril 20 mg tablet 20 mg PO DAILY 05/13/17 11/17/21 History cholecalciferol (vitamin D3) 50 2,000 unit PO QDAY #90 caps 11/29/17 11/17/21 Rx mcg (2,000 unit) capsule apixaban 5 mg tablet 5 mg PO BID 03/31/19 11/17/21 History tamsulosin 0.4 mg capsule (Flomax) 0.4 mg PO QDAY 03/31/19 11/17/21 History docusate sodium 100 mg capsule 100 mg PO QDAY 10/03/19 11/17/21 History finasteride 5 mg tablet 5 mg PO HS 10/03/19 11/17/21 History cyanocobalamin (vitamin B-12) 1 tab PO QDAY 10/17/20 11/17/21 History aspirin 81 mg tablet 162 mg PO QDAY 10/23/20 11/17/21 History pantoprazole 40 mg tablet,delayed 40 mg PO QDAY 02/18/21 11/17/21 History release magnesium oxide 400 mg PO QDAY #90 tabs 03/26/21 11/17/21 Rx gabapentin 300 mg capsule 300 mg PO BID 09/23/21 11/17/21 History torsemide 10 mg tablet 40 mg PO BID 11/10/21 11/17/21 History Allergies Allergy/AdvReac Type Severity Reaction Status Date / Time fish derived Allergy Intermediate Hives Verified 11/17/21 08:03 doxazosin Allergy Unknown Unknown Verified 11/17/21 08:03 niacin Allergy Unknown Unknown Verified 11/17/21 08:03 Sulfa (Sulfonamide AdvReac Intermediate Rash Verified 11/17/21 08:03 Antibiotics) EXAM Constitutional Vitals: Temp Pulse Resp BP Pulse Ox O2 Del Method 98.7 F 77 16 165/66 96 11/17/21 08:00 11/17/21 12:46 11/17/21 08:00 11/17/21 15:31 11/17/21 12:46 11/17/21 08:00 DATA Data Completed and Pending Labs: Labs from last 24 hours 11/17/21 11/17/21 11/17/21 09:40 08:45 08:45 WBC RBC Hgb Hct MCV MCH MCHC RDW Plt Count MPV Immature Gran % (Auto) Neut % (Auto) Lymph % (Auto) [place] % (Auto) Eos % (Auto) Baso % (Auto) Lymph # (Auto) [place] # (Auto) Eos # (Auto) Baso # (Auto) Immature Gran # Absolute Neutrophils ESR 49 H Sodium Potassium Chloride Carbon Dioxide Anion Gap BUN Creatinine POC Creatinine GFR Calculation Glucose Calcium C-Reactive Protein 2.40 H Urine Color Yellow Urine Appearance Slightly cloudy A Urine pH 6.0 Ur Specific [place] 1.020 Urine Protein >=300 mg/dl A Urine Glucose (UA) 100 mg/dl A Urine Ketones Negative Urine Occult Blood Small A Urine Nitrate Negative Urine Bilirubin Negative Urine Urobilinogen Normal Ur Leukocyte Esterase Small A Urine RBC 8 H Urine WBC > 182 H Ur Squamous Epith Cells 0 Ur Transition Epith Cell < 1 Urine Bacteria None Urine Mucus Few A Ur Culture Indicated? yes 11/17/21 11/17/21 11/17/21 08:45 08:45 08:36 WBC 21.7 H RBC 4.29 L Hgb 11.2 L Hct 36.5 L MCV 85.1 MCH 26.1 MCHC 30.7 L RDW 20.6 H Plt Count 684 H MPV 10.1 Immature Gran % (Auto) 2.1 H Neut % (Auto) 85.8 H Lymph % (Auto) 4.7 L [place] % (Auto) 3.9 Eos % (Auto) 3.1 Baso % (Auto) 0.4 Lymph # (Auto) 1.02 L [place] # (Auto) 0.85 Eos # (Auto) 0.67 Baso # (Auto) 0.09 Immature Gran # 0.46 H Absolute Neutrophils 18.62 H ESR Sodium 145 Potassium 5.5 H Chloride 106 Carbon Dioxide 26 Anion Gap 13.0 BUN 66 H Creatinine 2.0 H POC Creatinine 2.2 H GFR Calculation 29 Glucose 166 H Calcium 9.3 C-Reactive Protein Urine Color Urine Appearance Urine pH Ur Specific [place] Urine Protein Urine Glucose (UA) Urine Ketones Urine Occult Blood Urine Nitrate Urine Bilirubin Urine Urobilinogen Ur Leukocyte Esterase Urine RBC Urine WBC Ur Squamous Epith Cells Ur Transition Epith Cell Urine Bacteria Urine Mucus Ur Culture Indicated? A/P Narrative A/P Narrative: Assessment: 86 year old male with a history of hypertension, chronic kidney disease stage IV, diastolic heart failure, peripheral vascular disease requiring toe amputations, DVT on chronic anticoagulation, chronic leukocytosis, polycythemia vera and chronic thrombocytosis, prostate enlargement, degenerative disc disease who lives alone and was brought to the emergency department by his daughter for evaluation of the back pain and generalized weakness. An MRI lumbar spine without contrast showed possible discitis at L3-L4. #Acute on chronic lower back pain #Possible discitis L3-L4 #Generalized weakness #Recurrent falls #Skin tear over left elbow #Chronic wound on left leg #Chronic kidney disease stage IV #Chronic diastolic heart failure, stable #History of DVT on Eliquis #Essential hypertension #Chronic leukocytosis #Chronic thrombocytosis #Chronic anemia #History of polycythemia vera #Prostate enlargement #Degenerative disc disease #Peripheral vascular disease Plan -Obtain CRP, ESR, procalcitonin, blood culture x2, monitor CBC and renal function panel. -Consider empiric IV antibiotic depending on additional laboratory results. -Consider discussing with ID at [facility] or [facility]. -Scheduled Tylenol, as needed tramadol and low-dose IV Dilaudid. -Home medication reconciliation, continue important meds. -Delirium bundle. -Bowel regimen. -PT, OT consult. -Regular low-sodium diet. -DVT prophylaxis: On Eliquis. -CODE STATUS: Full. -Disposition: Probably SNF for rehab and possibly prolonged IV antibiotic treatment. Time Spent With Patient Time: Total time spent is greater than 50% in coordination of care (as documented) at patient's floor/unit and/or counseling patient:
[2021-11-17] MEDS ORDERED: TORSEMIDE 20 MG TABLET PO ONE (16:37)
[2021-11-17] MEDS ORDERED: LISINOPRIL 20 MG TABLET PO ONE (16:39)
[2021-11-17] MEDS: traMADol 50 MG TABLET PO PRN (17:06)
[2021-11-17] MEDS ORDERED: VANCOMYCIN PER PHARMACY IV ONE (19:30)
[2021-11-17] MEDS ORDERED: cefTRIAXone 2 GM in DEXTROSE 5% IN WATER 50 ML IV SCH (19:45)
[2021-11-17] MEDS: TORSEMIDE 10 MG TABLET PO SCH (19:48)
[2021-11-17] MEDS: ATORVASTATIN 20 MG TABLET PO SCH (20:39)
[2021-11-17] MEDS: FINASTERIDE 5 MG TABLET PO SCH (20:40)
[2021-11-17] MEDS: APIXABAN 5 MG TABLET PO SCH (20:40)
[2021-11-17] MEDS: SENNOSIDES 1 TABLET PO SCH (20:40)
[2021-11-17] MEDS: DOCUSATE SODIUM 100 MG CAPSULE PO SCH (20:40)
[2021-11-17] MEDS: GABAPENTIN 300 MG CAPSULE PO SCH (20:40)
[2021-11-17] MEDS: 0.9 % SODIUM CHLORIDE 10 ML SYRINGE IV SCH (20:42)
[2021-11-17] MEDS ORDERED: VANCOMYCIN 1,000 MG in 0.9 % SODIUM CHLORIDE 250 ML IV ONE (21:00)
[2021-11-18] MEDS: 0.9 % SODIUM CHLORIDE 10 ML SYRINGE IV SCH ×3 (05:49→21:54)
[2021-11-18] MEDS ORDERED: VANCOMYCIN PER PHARMACY IV SCH (06:00)
[2021-11-18 06:45] LABS: Basophils # (Auto) 0.09 K/mcL (0.00-0.30); Basophils % (Auto) 0.4 % (0.0-2.0); Eosinophils # (Auto) 0.57 K/mcL (0.00-0.70); Eosinophils % (Auto) 2.4 % (0.0-7.0); Hematocrit 36.6 % (40.1-51.0); Hemoglobin 10.8 g/dL (13.7-17.5); Lymphocytes # (Auto) 1.01 K/mcL (1.50-4.80); Lymphocytes % (Auto) 4.3 % (15.5-49.0); Mean Cell Volume 87.4 fL (80.0-100.0); Mean Corpuscular HGB Conc 29.5 g/dL (31.0-36.0); Mean Platelet Volume 10.2 fL (7.4-10.4); Monocytes # (Auto) 0.95 K/mcL (0.10-0.90); Neutrophils % (Auto) 87.2 % (38.0-78.0); Platelet Count 692 K/mcL (140-440); RBC 4.19 M/mcL (4.63-6.08); Red Cell Distribution Width 20.4 % (11.5-14.5); WBC 23.6 K/mcL (4.5-11.0)
[2021-11-18 07:20] LABS: Albumin 3.2 gm/dL (3.2-5.2); Calcium 9.2 mg/dL (8.6-10.4); Phosphorous 4.8 mg/dL (2.5-4.5)
[2021-11-18] MEDS: TAMSULOSIN 0.4 MG CAPSULE PO SCH (08:34)
[2021-11-18] MEDS: VITAMIN D3 25 MCG TABLET PO SCH (08:34)
[2021-11-18] MEDS: DOCUSATE SODIUM 100 MG CAPSULE PO SCH ×2 (08:34→21:52)
[2021-11-18] MEDS: PANTOPRAZOLE 40 MG TABLET PO SCH (08:34)
[2021-11-18] MEDS: LISINOPRIL 20 MG TABLET PO SCH (08:34)
[2021-11-18] MEDS: GABAPENTIN 300 MG CAPSULE PO SCH ×2 (08:34→21:52)
[2021-11-18] MEDS: CYANOCOBALAMIN (VITAMIN B-12) 500 MCG TABLET PO SCH (08:34)
[2021-11-18] MEDS: APIXABAN 5 MG TABLET PO SCH ×2 (08:34→21:52)
[2021-11-18] MEDS: TORSEMIDE 10 MG TABLET PO SCH ×2 (08:34→11:53)
[2021-11-18] MEDS: ASPIRIN 81 MG TAB.CHEW PO SCH (08:35)
[2021-11-18] MEDS: VANCOMYCIN 1,000 MG in 0.9 % SODIUM CHLORIDE 250 ML IV SCH (09:57)
[2021-11-18] MEDS: SENNOSIDES 1 TABLET PO SCH ×2 (09:57→21:53)
[2021-11-18] MEDS: traMADol 50 MG TABLET PO PRN ×2 (12:02→21:53)
[2021-11-18] MEDS ORDERED: ACETAMINOPHEN 325 MG TABLET PO SCH (14:00)
[2021-11-18] MEDS: ACETAMINOPHEN 500 MG TABLET PO SCH ×2 (14:16→22:20)
--- NOTE | 2021-11-18 14:16 | Internal Med Progress Note ---
SUBJECTIVE Subjective Patient information: Note initiated : 11/18/21 at 2:13 pm Service Date, if different from initiated Date: [] Patient: Ildefonso Forman Jr 86 y/o M admitted on 11/17/21 for back pain, recent falls. Chief Complaint: [] Interval history: Mr. Dickson Jarrell is a 86 year old male with a history of hypertension, chronic kidney disease stage IV, diastolic heart failure, peripheral vascular disease requiring toe amputations, DVT on chronic anticoagulation, chronic leukocytosis, polycythemia vera and chronic thrombocytosis, prostate enlargement, degenerative disc disease who lives alone and was brought to the emergency department by his daughter for evaluation of the back pain and generalized weakness. The history was taken from the patient and his daughter, they say that the patient has been having severe back pain for about 2 weeks that has progressively worsened to the point of the patient is now nearly bedbound. The patient was seen in the emergency department on 10/29/2021 for a knee effusion, discharged to home after a arthrocentesis that appeared fairly benign. The patient was seen again in the emergency department on 11/13/2021 for back pain, discharged to home after evaluation which included a CT lumbar spine without contrast that showed advanced degenerative disc disease throughout the lumbar spine with spinal canal stenosis at L3-4 and L4-5. Today, the patient underwent a CT abdomen pelvis without contrast which did not show any cause of acute abdominal pain, there were multiple chronic findings but no explanation for the patient's back pain. Chest x-ray did not show any acute changes. An MRI lumbar spine without contrast showed possible L2-3 discitis, multilevel degenerative disc disease. An MRI with contrast was not due due to the patient's advanced chronic kidney disease. The patient was afebrile in the emergency department, he does have a slight increase in white blood cell count however does have chronic leukocytosis at baseline. Hospital medicine was consulted for admission. We did discuss CODE STATUS in detail prior to admission, the patient wishes to be DNR/DNI. 11/18: CRP and ESR modestly elevated, procalcitonin is significantly elevated. I discussed the patient with ID at [facility], difficult situation per ID with no good way to establish a diagnosis in this case given the patient should not receive IV gadolinium due to the CKD. ID said that even a vertebral disc biopsy would have a 30 to 40% chance of false negative results if the patient does have infectious discitis. Options are to monitor and repeat imaging versus empiric treatment for discitis. ID recommended that empiric treatment be broad-spectrum, example given was vancomycin, ceftriaxone and metronidazole. The recommended empiric antibiotic regimen was started. Physical exam Head: Atraumatic, normal inspection. Eyes: normal appearance, no scleral icterus. Neck: full ROM Respiratory: no respiratory distress. Cardiovascular: normal rate and rhythm, S1, S2. GI/Abdominal: soft, nontender, no guarding. Extremities: Skin wound on left elbow covered with bandage, chronic appearing ulcer on left leg, several remote toe amputations. Neurological: CN II-XII intact, intact motor, intact sensation. Psychiatric: normal mood. Skin: warm, normal color Constitutional Vitals: Vital Signs Temp Pulse Resp BP Pulse Ox O2 Del Method 97.0 F 83 14 150/69 93 11/18/21 12:00 11/18/21 12:00 11/18/21 12:00 11/18/21 12:00 11/18/21 12:00 11/18/21 12:00 Period Temp Pulse Resp BP Sys/Sinha Pulse Ox O2 Del Method O2 Flow Rate Last 24 Hr 97.0 F-98.7 F 69-88 14-20 143-181/65-78 93-95 Room Air-Room Air Intake and Output 11/18/21 11/18/21 11/18/21 05:59 13:59 21:59 Intake Total 240 500 Output Total 503 Balance -263 500 Intake & Output: Intake & Output 11/18/21 11/18/21 11/18/21 05:59 13:59 21:59 Intake Total 240 500 Output Total 503 Balance -263 500 Intake: IV 500 Vancomycin 1,000 mg In Sodium 500 Chloride 0.9% 250 ml @ 250 mls/ hr IV Q24H [facility] Rx#:[id number] Oral 240 Output: Urine Catheter Amount 500 # of times incontinent of urine 3 Other: Urine Appearance Clear Uretheral ([place]) Clear Clear Urine Color Pale Uretheral ([place]) Pale Yellow Pale Urine Odor Normal Uretheral ([place]) Normal # Voids 2 OBJ DATA Labs CBC & Chem 7: 11/18/21 05:42 11/18/21 05:42 Labs: Abnormal Lab Results 11/18/21 11/18/21 11/18/21 05:42 05:42 05:42 WBC RBC Hgb Hct MCH MCHC RDW Plt Count Immature Gran % (Auto) Neut % (Auto) Lymph % (Auto) Lymph # (Auto) [place] # (Auto) Immature Gran # Absolute Neutrophils ESR Potassium BUN 55 H Creatinine 1.8 H POC Creatinine Glucose 159 H Phosphorus 4.8 H C-Reactive Protein 3.00 H Procalcitonin 0.42 H Urine Appearance Urine Protein Urine Glucose (UA) Urine Occult Blood Ur Leukocyte Esterase Urine RBC Urine WBC Urine Mucus 11/18/21 11/17/21 11/17/21 05:42 09:40 08:45 WBC 23.6 H RBC 4.19 L Hgb 10.8 L Hct 36.6 L MCH 25.8 L MCHC 29.5 L RDW 20.4 H Plt Count 692 H Immature Gran % (Auto) 1.7 H Neut % (Auto) 87.2 H Lymph % (Auto) 4.3 L Lymph # (Auto) 1.01 L [place] # (Auto) 0.95 H Immature Gran # 0.41 H Absolute Neutrophils 20.57 H ESR Potassium BUN Creatinine POC Creatinine Glucose Phosphorus C-Reactive Protein Procalcitonin 0.39 H Urine Appearance Slightly cloudy A Urine Protein >=300 mg/dl A Urine Glucose (UA) 100 mg/dl A Urine Occult Blood Small A Ur Leukocyte Esterase Small A Urine RBC 8 H Urine WBC > 182 H Urine Mucus Few A 11/17/21 11/17/21 11/17/21 08:45 08:45 08:45 WBC RBC Hgb Hct MCH MCHC RDW Plt Count Immature Gran % (Auto) Neut % (Auto) Lymph % (Auto) Lymph # (Auto) [place] # (Auto) Immature Gran # Absolute Neutrophils ESR 49 H Potassium 5.5 H BUN 66 H Creatinine 2.0 H POC Creatinine Glucose 166 H Phosphorus C-Reactive Protein 2.40 H Procalcitonin Urine Appearance Urine Protein Urine Glucose (UA) Urine Occult Blood Ur Leukocyte Esterase Urine RBC Urine WBC Urine Mucus 11/17/21 11/17/21 08:45 08:36 WBC 21.7 H RBC 4.29 L Hgb 11.2 L Hct 36.5 L MCH MCHC 30.7 L RDW 20.6 H Plt Count 684 H Immature Gran % (Auto) 2.1 H Neut % (Auto) 85.8 H Lymph % (Auto) 4.7 L Lymph # (Auto) 1.02 L [place] # (Auto) Immature Gran # 0.46 H Absolute Neutrophils 18.62 H ESR Potassium BUN Creatinine POC Creatinine 2.2 H Glucose Phosphorus C-Reactive Protein Procalcitonin Urine Appearance Urine Protein Urine Glucose (UA) Urine Occult Blood Ur Leukocyte Esterase Urine RBC Urine WBC Urine Mucus Meds: Medications Acetaminophen (Acetaminophen 500 Mg Tablet) 1,000 mg PO Q8H [facility]; Protocol Apixaban (Apixaban 5 Mg Tablet) 5 mg PO BID [facility] Last Admin: 11/18/21 08:34 Dose: 5 mg Aspirin (Aspirin 81 Mg Tab.Chew) 162 mg PO DAILY [facility] Last Admin: 11/18/21 08:35 Dose: 162 mg Atorvastatin Calcium (Atorvastatin 20 Mg Tablet) 20 mg PO [facility] Last Admin: 11/17/21 20:39 Dose: 20 mg Cyanocobalamin (Cyanocobalamin (Vitamin B-12) 500 Mcg Tablet) 500 mcg PO DAILY [facility] Last Admin: 11/18/21 08:34 Dose: 500 mcg Docusate Sodium (Docusate Sodium 100 Mg Capsule) 100 mg PO BID [facility] Last Admin: 11/18/21 08:34 Dose: 100 mg Finasteride (Finasteride 5 Mg Tablet) 5 mg PO HS [facility] Last Admin: 11/17/21 20:40 Dose: 5 mg Gabapentin (Gabapentin 300 Mg Capsule) 300 mg PO BID [facility] Last Admin: 11/18/21 08:34 Dose: 300 mg Vancomycin HCl 1,000 mg/ (Sodium Chloride) 250 mls @ 250 mls/hr IV Q24H [facility] Last Infusion: 11/18/21 11:20 Dose: Infused Lisinopril (Lisinopril 20 Mg Tablet) 20 mg PO DAILY [facility] Last Admin: 11/18/21 08:34 Dose: 20 mg Ondansetron HCl (Ondansetron 4 Mg/2 Ml Vial) 4 mg IV Q6HP PRN PRN Reason: Nausea And Vomiting Pantoprazole Sodium (Pantoprazole 40 Mg Tablet) 40 mg PO QDAY [facility] Last Admin: 11/18/21 08:34 Dose: 40 mg Polyethylene Glycol (Polyethylene Glycol 3350 17 Gm Packet) 17 gm PO DAILYP PRN PRN Reason: Constipation Senna (Sennosides 1 Tablet) 2 tab PO BID [facility] Last Admin: 11/18/21 09:57 Dose: 2 tab Sodium Chloride (0.9 % Sodium Chloride 10 Ml Syringe) 10 ml IV Q8 [facility] Last Admin: 11/18/21 05:49 Dose: 10 ml Tamsulosin HCl (Tamsulosin 0.4 Mg Capsule) 0.4 mg PO QDAY [facility] Last Admin: 11/18/21 08:34 Dose: 0.4 mg Torsemide (Torsemide 10 Mg Tablet) 40 mg PO BID@0800,1200 [facility] Last Admin: 11/18/21 11:53 Dose: 40 mg Tramadol HCl (Tramadol 50 Mg Tablet) 50 mg PO Q6HP PRN; Protocol PRN Reason: Pain Last Admin: 11/18/21 12:02 Dose: 50 mg Vancomycin HCl (Vancomycin Per Pharmacy) 1 order IV UD [facility]; Protocol Vitamin D (Vitamin D3 25 Mcg Tablet) 50 mcg PO DAILY [facility] Last Admin: 11/18/21 08:34 Dose: 50 mcg A/P Narrative A/P Narrative: Assessment: 86 year old male with a history of hypertension, chronic kidney disease stage IV, diastolic heart failure, peripheral vascular disease requiring toe amputations, DVT on chronic anticoagulation, chronic leukocytosis, polycythemia vera and chronic thrombocytosis, prostate enlargement, degenerative disc disease who lives alone and was brought to the emergency department by his daughter for evaluation of the back pain and generalized weakness. An MRI lumbar spine without contrast showed possible discitis at L3-L4. #Acute on chronic lower back pain #Possible discitis L3-L4 #Possible UTI #Generalized weakness #Recurrent falls #Skin tear over left elbow #Chronic wound on left leg #Chronic kidney disease stage IV #Chronic diastolic heart failure, stable #History of DVT on Eliquis #Essential hypertension #Chronic leukocytosis #Chronic thrombocytosis #Chronic anemia #History of polycythemia vera #Prostate enlargement #Degenerative disc disease #Peripheral vascular disease Plan -Empiric IV vancomycin, ceftriaxone, metronidazole. Discussed with ID at [facility]. -Follow blood and urine cultures, procalcitonin level. -Scheduled Tylenol, as needed tramadol, discontinued IV Dilaudid and [place]. -Continue home Eliquis, aspirin, atorvastatin, finasteride, gabapentin, lisinopril, Protonix, Flomax, torsemide. -Delirium bundle. -Bowel regimen. -PT, OT consult. -Regular low-sodium diet. -DVT prophylaxis: On Eliquis. -CODE STATUS: Full. -Disposition: Probably SNF for rehab and possibly prolonged IV antibiotic treatment. Follow-up with ID after discharge if possible, MRI lumbar spine w ithout contrast after discharge to monitor progression of possible discitis. Time Spent With Patient Time: Total time spent is greater than 50% in coordination of care (as documented) at patient's floor/unit and/or counseling patient: QUALITY Stroke Symptom Onset Unknown: No VTE Deep Vein Thrombosis/Pulmonary Embolism Present on Admission: No
[2021-11-18] MEDS: metroNIDAZOLE 500 MG/100 ML BAG IV SCH ×2 (14:25→21:52)
--- NOTE | 2021-11-18 15:14 | EKG ---
[facility] Test Date: 2021-11-17 Pat Name: Ildefonso Forman Jr Department: ED Room: Gender: Male Aemt: AW : 1935 Requested By: Ronnie Hitchcock Order Number: [id number] Reading MD: Reji Salgado M.D. Measurements Intervals [place] Rate: 79 P: 1 RI: 219 QRS: -12 QRSD: 89 T: 123 QT: 367 QTc: 421 Interpretive Statements Sinus rhythm Borderline prolonged RI interval Probable left atrial enlargement Left ventricular hypertrophy by voltage Nonspecific T abnormalities, lateral leads Electronically Signed On 11-18-2021 15:13:43 PDT by Reji Salgado M.D. /[email or web address]/[id number]
[2021-11-18] MEDS: cefTRIAXone 2 GM in DEXTROSE 5% IN WATER 50 ML IV SCH (15:28)
[2021-11-18] MEDS: ATORVASTATIN 20 MG TABLET PO SCH (21:52)
[2021-11-18] MEDS: FINASTERIDE 5 MG TABLET PO SCH (21:53)
[2021-11-19] MEDS: metroNIDAZOLE 500 MG/100 ML BAG IV SCH ×3 (06:18→21:41)
[2021-11-19] MEDS: 0.9 % SODIUM CHLORIDE 10 ML SYRINGE IV SCH ×3 (06:18→21:43)
[2021-11-19] MEDS: ACETAMINOPHEN 500 MG TABLET PO SCH ×3 (06:19→21:42)
[2021-11-19] MEDS: TORSEMIDE 10 MG TABLET PO SCH ×2 (08:28→12:41)
[2021-11-19] MEDS: traMADol 50 MG TABLET PO PRN ×3 (08:29→21:43)
[2021-11-19] MEDS: cefTRIAXone 2 GM in DEXTROSE 5% IN WATER 50 ML IV SCH (08:29)
[2021-11-19] MEDS: TAMSULOSIN 0.4 MG CAPSULE PO SCH (09:06)
[2021-11-19] MEDS: SENNOSIDES 1 TABLET PO SCH ×2 (09:06→21:42)
[2021-11-19] MEDS: ASPIRIN 81 MG TAB.CHEW PO SCH (09:06)
[2021-11-19] MEDS: LISINOPRIL 20 MG TABLET PO SCH (09:07)
[2021-11-19] MEDS: DOCUSATE SODIUM 100 MG CAPSULE PO SCH ×2 (09:07→21:43)
[2021-11-19] MEDS: APIXABAN 5 MG TABLET PO SCH ×2 (09:07→21:42)
[2021-11-19] MEDS: PANTOPRAZOLE 40 MG TABLET PO SCH (09:07)
[2021-11-19] MEDS: GABAPENTIN 300 MG CAPSULE PO SCH ×2 (09:07→21:43)
[2021-11-19] MEDS: CYANOCOBALAMIN (VITAMIN B-12) 500 MCG TABLET PO SCH (09:07)
[2021-11-19] MEDS: VITAMIN D3 25 MCG TABLET PO SCH (09:07)
[2021-11-19] MEDS: VANCOMYCIN 1,000 MG in 0.9 % SODIUM CHLORIDE 250 ML IV SCH (13:44)
--- NOTE | 2021-11-19 16:19 | Internal Med Progress Note ---
SUBJECTIVE Subjective Patient information: Note initiated : 11/19/21 at 4:17 pm Service Date, if different from initiated Date: [] Patient: Ildefonso Forman Jr 86 y/o M admitted on 11/17/21 for back pain, recent falls. Chief Complaint: [] Interval history: Mr. Dickson Jarrell is a 86 year old male with a history of hypertension, chronic kidney disease stage IV, diastolic heart failure, peripheral vascular disease requiring toe amputations, DVT on chronic anticoagulation, chronic leukocytosis, polycythemia vera and chronic thrombocytosis, prostate enlargement, degenerative disc disease who lives alone and was brought to the emergency department by his daughter for evaluation of the back pain and generalized weakness. The history was taken from the patient and his daughter, they say that the patient has been having severe back pain for about 2 weeks that has progressively worsened to the point of the patient is now nearly bedbound. The patient was seen in the emergency department on 10/29/2021 for a knee effusion, discharged to home after a arthrocentesis that appeared fairly benign. The patient was seen again in the emergency department on 11/13/2021 for back pain, discharged to home after evaluation which included a CT lumbar spine without contrast that showed advanced degenerative disc disease throughout the lumbar spine with spinal canal stenosis at L3-4 and L4-5. Today, the patient underwent a CT abdomen pelvis without contrast which did not show any cause of acute abdominal pain, there were multiple chronic findings but no explanation for the patient's back pain. Chest x-ray did not show any acute changes. An MRI lumbar spine without contrast showed possible L2-3 discitis, multilevel degenerative disc disease. An MRI with contrast was not due due to the patient's advanced chronic kidney disease. The patient was afebrile in the emergency department, he does have a slight increase in white blood cell count however does have chronic leukocytosis at baseline. Hospital medicine was consulted for admission. We did discuss CODE STATUS in detail prior to admission, the patient wishes to be DNR/DNI. 11/18: CRP and ESR modestly elevated, procalcitonin is significantly elevated. I discussed the patient with ID at [facility], difficult situation per ID with no good way to establish a diagnosis in this case given the patient should not receive IV gadolinium due to the CKD. ID said that even a vertebral disc biopsy would have a 30 to 40% chance of false negative results if the patient does have infectious discitis. Options are to monitor and repeat imaging versus empiric treatment for discitis. ID recommended that empiric treatment be broad-spectrum, example given was vancomycin, ceftriaxone and metronidazole. The recommended empiric antibiotic regimen was started. 11/19: No significant events overnight, afebrile. Patient says pain is well controlled with Tylenol and tramadol. Blood culture showing no growth to date after 1 day. If blood cultures negative at [address] a PICC line for long- term outpatient IV antibiotic treatment for possible discitis. Physical exam Head: Atraumatic, normal inspection. Eyes: normal appearance, no scleral icterus. Neck: full ROM Respiratory: no respiratory distress. Cardiovascular: normal rate and rhythm, S1, S2. GI/Abdominal: soft, nontender, no guarding. Extremities: Skin wound on left elbow covered with bandage. Neurological: CN II-XII intact, intact motor, intact sensation. Psychiatric: normal mood. Skin: warm, normal color Constitutional Vitals: Vital Signs Temp Pulse Resp BP Pulse Ox O2 Del Method 97.5 F 96 H 14 168/59 91 11/19/21 15:54 11/19/21 15:54 11/19/21 15:54 11/19/21 15:54 11/19/21 15:54 11/19/21 15:54 Period Temp Pulse Resp BP Sys/Sinha Pulse Ox O2 Del Method O2 Flow Rate Last 24 Hr 97.3 F-98.6 F 70-96 12-14 123-168/50-73 91-94 Room Air-Room Air Intake and Output 11/19/21 11/19/21 11/19/21 05:59 13:59 21:59 Intake Total 390 270 250 Output Total 1100 1000 Balance -710 730 250 Weight 76.657 kg Patient Weight 11/20/21 05:59 Weight 76.657 kg Intake & Output: Intake & Output 11/19/21 11/19/21 11/19/21 05:59 13:59 21:59 Intake Total 390 270 250 Output Total 1100 1000 Balance -710 730 250 Weight 76.657 kg Intake: IV 100 150 250 Vancomycin 1,000 mg In Sodium 250 Chloride 0.9% 250 ml @ 250 mls/ hr IV Q24H [facility] Rx#:[id number] Rocephin 2 gm In Dextrose 5% in 50 Water 50 ml @ 100 mls/hr IV Q24H [facility] Rx#:[id number] Oral 290 120 Output: Urine Catheter Amount 1100 1000 Other: Meal Breakfast Percent of Meal Consumed 75% Urine Appearance Clear Cloudy Uretheral ([place]) Clear Cloudy Urine Color Dark Yellow Yellow Uretheral ([place]) Dark Yellow Yellow Urine Odor Normal Uretheral ([place]) Normal OBJ DATA Labs CBC & Chem 7: 11/18/21 05:42 11/18/21 05:42 Labs: Abnormal Lab Results 11/19/21 11/18/21 11/18/21 05:33 05:42 05:42 WBC RBC Hgb Hct MCH MCHC RDW Plt Count Immature Gran % (Auto) Neut % (Auto) Lymph % (Auto) Lymph # (Auto) [place] # (Auto) Immature Gran # Absolute Neutrophils ESR Potassium BUN Creatinine POC Creatinine Glucose Phosphorus C-Reactive Protein 3.00 H Procalcitonin 0.49 H 0.42 H Urine Appearance Urine Protein Urine Glucose (UA) Urine Occult Blood Ur Leukocyte Esterase Urine RBC Urine WBC Urine Mucus 11/18/21 11/18/21 11/17/21 05:42 05:42 09:40 WBC 23.6 H RBC 4.19 L Hgb 10.8 L Hct 36.6 L MCH 25.8 L MCHC 29.5 L RDW 20.4 H Plt Count 692 H Immature Gran % (Auto) 1.7 H Neut % (Auto) 87.2 H Lymph % (Auto) 4.3 L Lymph # (Auto) 1.01 L [place] # (Auto) 0.95 H Immature Gran # 0.41 H Absolute Neutrophils 20.57 H ESR Potassium BUN 55 H Creatinine 1.8 H POC Creatinine Glucose 159 H Phosphorus 4.8 H C-Reactive Protein Procalcitonin Urine Appearance Slightly cloudy A Urine Protein >=300 mg/dl A Urine Glucose (UA) 100 mg/dl A Urine Occult Blood Small A Ur Leukocyte Esterase Small A Urine RBC 8 H Urine WBC > 182 H Urine Mucus Few A 11/17/21 11/17/21 11/17/21 08:45 08:45 08:45 WBC RBC Hgb Hct MCH MCHC RDW Plt Count Immature Gran % (Auto) Neut % (Auto) Lymph % (Auto) Lymph # (Auto) [place] # (Auto) Immature Gran # Absolute Neutrophils ESR 49 H Potassium BUN Creatinine POC Creatinine Glucose Phosphorus C-Reactive Protein 2.40 H Procalcitonin 0.39 H Urine Appearance Urine Protein Urine Glucose (UA) Urine Occult Blood Ur Leukocyte Esterase Urine RBC Urine WBC Urine Mucus 11/17/21 11/17/21 11/17/21 08:45 08:45 08:36 WBC 21.7 H RBC 4.29 L Hgb 11.2 L Hct 36.5 L MCH MCHC 30.7 L RDW 20.6 H Plt Count 684 H Immature Gran % (Auto) 2.1 H Neut % (Auto) 85.8 H Lymph % (Auto) 4.7 L Lymph # (Auto) 1.02 L [place] # (Auto) Immature Gran # 0.46 H Absolute Neutrophils 18.62 H ESR Potassium 5.5 H BUN 66 H Creatinine 2.0 H POC Creatinine 2.2 H Glucose 166 H Phosphorus C-Reactive Protein Procalcitonin Urine Appearance Urine Protein Urine Glucose (UA) Urine Occult Blood Ur Leukocyte Esterase Urine RBC Urine WBC Urine Mucus Meds: Medications Acetaminophen (Acetaminophen 500 Mg Tablet) 1,000 mg PO Q8H [facility]; Protocol Last Admin: 11/19/21 13:43 Dose: 1,000 mg Apixaban (Apixaban 5 Mg Tablet) 5 mg PO BID [facility] Last Admin: 11/19/21 09:07 Dose: 5 mg Aspirin (Aspirin 81 Mg Tab.Chew) 162 mg PO DAILY [facility] Last Admin: 11/19/21 09:06 Dose: 162 mg Atorvastatin Calcium (Atorvastatin 20 Mg Tablet) 20 mg PO [facility] Last Admin: 11/18/21 21:52 Dose: 20 mg Cyanocobalamin (Cyanocobalamin (Vitamin B-12) 500 Mcg Tablet) 500 mcg PO DAILY [facility] Last Admin: 11/19/21 09:07 Dose: 500 mcg Docusate Sodium (Docusate Sodium 100 Mg Capsule) 100 mg PO BID [facility] Last Admin: 11/19/21 09:07 Dose: 100 mg Finasteride (Finasteride 5 Mg Tablet) 5 mg PO [facility] Last Admin: 11/18/21 21:53 Dose: 5 mg Gabapentin (Gabapentin 300 Mg Capsule) 300 mg PO BID [facility] Last Admin: 11/19/21 09:07 Dose: 300 mg Vancomycin HCl 1,000 mg/ (Sodium Chloride) 250 mls @ 250 mls/hr IV Q24H [facility] Last Infusion: 11/19/21 14:45 Dose: Infused Ceftriaxone Sodium 2 gm/ (Dextrose) 50 mls @ 100 mls/hr IV Q24H [facility]; Protocol Last Infusion: 11/19/21 09:05 Dose: Infused Metronidazole (Flagyl) 500 mg in 100 mls @ 100 mls/hr IV Q8H [facility]; Protocol Last Admin: 11/19/21 15:08 Dose: 100 mls/hr Lisinopril (Lisinopril 20 Mg Tablet) 20 mg PO DAILY [facility] Last Admin: 11/19/21 09:07 Dose: 20 mg Ondansetron HCl (Ondansetron 4 Mg/2 Ml Vial) 4 mg IV Q6HP PRN PRN Reason: Nausea And Vomiting Pantoprazole Sodium (Pantoprazole 40 Mg Tablet) 40 mg PO QDAY [facility] Last Admin: 11/19/21 09:07 Dose: 40 mg Polyethylene Glycol (Polyethylene Glycol 3350 17 Gm Packet) 17 gm PO DAILYP PRN PRN Reason: Constipation Senna (Sennosides 1 Tablet) 2 tab PO BID [facility] Last Admin: 11/19/21 09:06 Dose: 2 tab Sodium Chloride (0.9 % Sodium Chloride 10 Ml Syringe) 10 ml IV Q8 [facility] Last Admin: 11/19/21 15:08 Dose: 10 ml Tamsulosin HCl (Tamsulosin 0.4 Mg Capsule) 0.4 mg PO QDAY [facility] Last Admin: 11/19/21 09:06 Dose: 0.4 mg Torsemide (Torsemide 10 Mg Tablet) 40 mg PO BID@0800,1200 [facility] Last Admin: 11/19/21 12:41 Dose: 40 mg Tramadol HCl (Tramadol 50 Mg Tablet) 50 mg PO Q6HP PRN; Protocol PRN Reason: Pain Last Admin: 11/19/21 15:30 Dose: 50 mg Vancomycin HCl (Vancomycin Per Pharmacy) 1 order IV UD [facility]; Protocol Vitamin D (Vitamin D3 25 Mcg Tablet) 50 mcg PO DAILY [facility] Last Admin: 11/19/21 09:07 Dose: 50 mcg A/P Narrative A/P Narrative: Assessment: 86 year old male with a history of hypertension, chronic kidney disease stage IV, diastolic heart failure, peripheral vascular disease requiring toe amputations, DVT on chronic anticoagulation, chronic leukocytosis, polycythemia vera and chronic thrombocytosis, prostate enlargement, degenerative disc disease who lives alone and was brought to the emergency department by his daughter for evaluation of the back pain and generalized weakness. An MRI lumbar spine without contrast showed possible discitis at L3-L4. #Acute on chronic lower back pain #Possible discitis L3-L4 #Possible UTI #Generalized weakness #Recurrent falls #Skin tear over left elbow #Chronic wound on left leg #Chronic kidney disease stage IV #Chronic diastolic heart failure, stable #History of DVT on Eliquis #Essential hypertension #Chronic leukocytosis #Chronic thrombocytosis #Chronic anemia #History of polycythemia vera #Prostate enlargement #Degenerative disc disease #Peripheral vascular disease Plan -Empiric IV vancomycin, ceftriaxone, metronidazole. Discussed with ID at [facility]. -Follow blood and urine cultures, procalcitonin level. -If blood culture showing no growth at 48 hours we will order PICC line tomorrow. -Scheduled Tylenol, as needed tramadol. -Continue home Eliquis, aspirin, atorvastatin, finasteride, gabapentin, lisinopril, Protonix, Flomax, torsemide. -Delirium bundle. -Bowel regimen. -PT, OT consult. -Regular low-sodium diet. -DVT prophylaxis: On Eliquis. -CODE STATUS: Full. -Disposition: SNF for rehab and prolonged IV antibiotic treatment. Follow-up with ID after discharge if possible, MRI lumbar spine without contrast after discharge to monitor progression of possible discitis. Time Spent With Patient Time: Total time spent is greater than 50% in coordination of care (as documented) at patient's floor/unit and/or counseling patient: QUALITY Stroke Symptom Onset Unknown: No VTE Deep Vein Thrombosis/Pulmonary Embolism Present on Admission: No
[2021-11-19] MEDS: FINASTERIDE 5 MG TABLET PO SCH (21:43)
[2021-11-19] MEDS: ATORVASTATIN 20 MG TABLET PO SCH (21:43)
[2021-11-20] MEDS: 0.9 % SODIUM CHLORIDE 10 ML SYRINGE IV SCH ×5 (05:29→22:38)
[2021-11-20] MEDS: metroNIDAZOLE 500 MG/100 ML BAG IV SCH ×3 (05:29→22:31)
[2021-11-20] MEDS ORDERED: 0.9 % SODIUM CHLORIDE 10 ML SYRINGE IV PRN (05:37)
[2021-11-20] MEDS: ACETAMINOPHEN 500 MG TABLET PO SCH ×3 (06:00→22:31)
[2021-11-20 07:14] LABS: Basophils # (Auto) 0.09 K/mcL (0.00-0.30); Basophils % (Auto) 0.4 % (0.0-2.0); Eosinophils # (Auto) 0.62 K/mcL (0.00-0.70); Hemoglobin 10.5 g/dL (13.7-17.5); Lymphocytes # (Auto) 0.97 K/mcL (1.50-4.80); Lymphocytes % (Auto) 4.7 % (15.5-49.0); Mean Cell Volume 87.1 fL (80.0-100.0); Mean Platelet Volume 9.9 fL (7.4-10.4); Monocytes # (Auto) 0.83 K/mcL (0.10-0.90); Neutrophils % (Auto) 86.1 % (38.0-78.0); Platelet Count 556 K/mcL (140-440); RBC 4.02 M/mcL (4.63-6.08); Red Cell Distribution Width 20.3 % (11.5-14.5); WBC 20.8 K/mcL (4.5-11.0)
[2021-11-20 07:47] LABS: Albumin 2.7 gm/dL (3.2-5.2); Blood Urea Nitrogen 65 mg/dL (8-23); Carbon Dioxide 23 mmol/L (22-30); Chloride 102 mmol/L (96-108); Glomerular Filtration Rate 31; Glucose 148 mg/dL (70-105); Phosphorous 5.6 mg/dL (2.5-4.5)
--- NOTE | 2021-11-20 09:30 | Internal Med Progress Note ---
SUBJECTIVE Subjective Patient information: Note initiated : 11/20/21 at 9:27 am Service Date, if different from initiated Date: [] Patient: Ildefonso Forman Jr 86 y/o M admitted on 11/17/21 for back pain, recent falls. Chief Complaint: [] Interval history: Mr. Dickson Jarrell is a 86 year old male with a history of hypertension, chronic kidney disease stage IV, diastolic heart failure, peripheral vascular disease requiring toe amputations, DVT on chronic anticoagulation, chronic leukocytosis, polycythemia vera and chronic thrombocytosis, prostate enlargement, degenerative disc disease who lives alone and was brought to the emergency department by his daughter for evaluation of the back pain and generalized weakness. The history was taken from the patient and his daughter, they say that the patient has been having severe back pain for about 2 weeks that has progressively worsened to the point of the patient is now nearly bedbound. The patient was seen in the emergency department on 10/29/2021 for a knee effusion, discharged to home after a arthrocentesis that appeared fairly benign. The patient was seen again in the emergency department on 11/13/2021 for back pain, discharged to home after evaluation which included a CT lumbar spine without contrast that showed advanced degenerative disc disease throughout the lumbar spine with spinal canal stenosis at L3-4 and L4-5. Today, the patient underwent a CT abdomen pelvis without contrast which did not show any cause of acute abdominal pain, there were multiple chronic findings but no explanation for the patient's back pain. Chest x-ray did not show any acute changes. An MRI lumbar spine without contrast showed possible L2-3 discitis, multilevel degenerative disc disease. An MRI with contrast was not due due to the patient's advanced chronic kidney disease. The patient was afebrile in the emergency department, he does have a slight increase in white blood cell count however does have chronic leukocytosis at baseline. Hospital medicine was consulted for admission. We did discuss CODE STATUS in detail prior to admission, the patient wishes to be DNR/DNI. 11/18: CRP and ESR modestly elevated, procalcitonin is significantly elevated. I discussed the patient with ID at [facility], difficult situation per ID with no good way to establish a diagnosis in this case given the patient should not receive IV gadolinium due to the CKD. ID said that even a vertebral disc biopsy would have a 30 to 40% chance of false negative results if the patient does have infectious discitis. Options are to monitor and repeat imaging versus empiric treatment for discitis. ID recommended that empiric treatment be broad-spectrum, example given was vancomycin, ceftriaxone and metronidazole. The recommended empiric antibiotic regimen was started. 11/19: No significant events overnight, afebrile. Patient says pain is well controlled with Tylenol and tramadol. Blood culture showing no growth to date after 1 day. If blood cultures negative at [address] a PICC line for long- term outpatient IV antibiotic treatment for possible discitis. 11/20: Blood culture showing no growth at day 2, pain fairly well controlled on current regimen and. PICC line ordered. White blood cell count similar to prior levels, renal function stable, urine growing Enterococcus faecalis. Move Bundy catheter. Physical exam Head: Atraumatic, normal inspection. Eyes: normal appearance, no scleral icterus. Neck: full ROM Respiratory: no respiratory distress. Cardiovascular: normal rate and rhythm, S1, S2. GI/Abdominal: soft, nontender, no guarding. Extremities: Skin wound on left elbow covered with bandage. Neurological: CN II-XII intact, intact motor, intact sensation. Psychiatric: normal mood. Skin: warm, normal color Constitutional Vitals: Vital Signs Temp Pulse Resp BP Pulse Ox O2 Del Method 97.6 F 77 14 152/72 94 11/20/21 07:47 11/20/21 07:47 11/20/21 07:47 11/20/21 07:47 11/20/21 07:47 11/20/21 07:47 Period Temp Pulse Resp BP Sys/Sinha Pulse Ox O2 Del Method O2 Flow Rate Last 24 Hr 97.3 F-98.3 F 77-97 12-14 120-168/59-73 91-94 Room Air-Room Air Intake and Output 11/19/21 11/20/21 11/20/21 21:59 05:59 13:59 Intake Total 870 375 Output Total 525 700 Balance 345 -325 Weight 77.156 kg Intake & Output: Intake & Output 11/19/21 11/20/21 11/20/21 21:59 05:59 13:59 Intake Total 870 375 Output Total 525 700 Balance 345 -325 Weight 77.156 kg Intake: IV 350 100 Vancomycin 1,000 mg In Sodium 250 Chloride 0.9% 250 ml @ 250 mls/ hr IV Q24H [facility] Rx#:[id number] Oral 520 275 Output: Urine Catheter Amount 525 700 Other: Meal Dinner Percent of Meal Consumed 100% Urine Appearance Clear Uretheral (Bundy) Clear Urine Color Yellow Yellow Uretheral (Bundy) Bright Yellow Yellow OBJ DATA Labs CBC & Chem 7: 11/20/21 05:37 11/20/21 05:37 Labs: Abnormal Lab Results 11/20/21 11/20/21 11/19/21 05:37 05:37 05:33 WBC 20.8 H RBC 4.02 L Hgb 10.5 L Hct 35.0 L MCH MCHC 30.0 L RDW 20.3 H Plt Count 556 H Immature Gran % (Auto) 1.8 H Neut % (Auto) 86.1 H Lymph % (Auto) 4.7 L Lymph # (Auto) 0.97 L [place] # (Auto) Immature Gran # 0.38 H Absolute Neutrophils 17.91 H ESR Potassium BUN 65 H Creatinine 1.9 H Glucose 148 H Phosphorus 5.6 H C-Reactive Protein Albumin 2.7 L Procalcitonin 0.49 H Urine Appearance Urine Protein Urine Glucose (UA) Urine Occult Blood Ur Leukocyte Esterase Urine RBC Urine WBC Urine Mucus 11/18/21 11/18/21 11/18/21 05:42 05:42 05:42 WBC RBC Hgb Hct MCH MCHC RDW Plt Count Immature Gran % (Auto) Neut % (Auto) Lymph % (Auto) Lymph # (Auto) [place] # (Auto) Immature Gran # Absolute Neutrophils ESR Potassium BUN 55 H Creatinine 1.8 H Glucose 159 H Phosphorus 4.8 H C-Reactive Protein 3.00 H Albumin Procalcitonin 0.42 H Urine Appearance Urine Protein Urine Glucose (UA) Urine Occult Blood Ur Leukocyte Esterase Urine RBC Urine WBC Urine Mucus 11/18/21 11/17/21 11/17/21 05:42 09:40 08:45 WBC 23.6 H RBC 4.19 L Hgb 10.8 L Hct 36.6 L MCH 25.8 L MCHC 29.5 L RDW 20.4 H Plt Count 692 H Immature Gran % (Auto) 1.7 H Neut % (Auto) 87.2 H Lymph % (Auto) 4.3 L Lymph # (Auto) 1.01 L [place] # (Auto) 0.95 H Immature Gran # 0.41 H Absolute Neutrophils 20.57 H ESR Potassium BUN Creatinine Glucose Phosphorus C-Reactive Protein Albumin Procalcitonin 0.39 H Urine Appearance Slightly cloudy A Urine Protein >=300 mg/dl A Urine Glucose (UA) 100 mg/dl A Urine Occult Blood Small A Ur Leukocyte Esterase Small A Urine RBC 8 H Urine WBC > 182 H Urine Mucus Few A 11/17/21 11/17/21 11/17/21 08:45 08:45 08:45 WBC RBC Hgb Hct MCH MCHC RDW Plt Count Immature Gran % (Auto) Neut % (Auto) Lymph % (Auto) Lymph # (Auto) [place] # (Auto) Immature Gran # Absolute Neutrophils ESR 49 H Potassium 5.5 H BUN 66 H Creatinine 2.0 H Glucose 166 H Phosphorus C-Reactive Protein 2.40 H Albumin Procalcitonin Urine Appearance Urine Protein Urine Glucose (UA) Urine Occult Blood Ur Leukocyte Esterase Urine RBC Urine WBC Urine Mucus Meds: Medications Acetaminophen (Acetaminophen 500 Mg Tablet) 1,000 mg PO Q8H [facility]; Protocol Last Admin: 11/20/21 06:00 Dose: 1,000 mg Apixaban (Apixaban 5 Mg Tablet) 5 mg PO BID [facility] Last Admin: 11/19/21 21:42 Dose: 5 mg Aspirin (Aspirin 81 Mg Tab.Chew) 162 mg PO DAILY [facility] Last Admin: 11/19/21 09:06 Dose: 162 mg Atorvastatin Calcium (Atorvastatin 20 Mg Tablet) 20 mg PO [facility] Last Admin: 11/19/21 21:43 Dose: 20 mg Cyanocobalamin (Cyanocobalamin (Vitamin B-12) 500 Mcg Tablet) 500 mcg PO DAILY [facility] Last Admin: 11/19/21 09:07 Dose: 500 mcg Docusate Sodium (Docusate Sodium 100 Mg Capsule) 100 mg PO BID [facility] Last Admin: 11/19/21 21:43 Dose: 100 mg Finasteride (Finasteride 5 Mg Tablet) 5 mg PO [facility] Last Admin: 11/19/21 21:43 Dose: 5 mg Gabapentin (Gabapentin 300 Mg Capsule) 300 mg PO BID [facility] Last Admin: 11/19/21 21:43 Dose: 300 mg Heparin Sodium (Porcine) (Heparin Flush 10 Units/Ml 5 Ml Syringe) 2 ml IV Q12 [facility] Vancomycin HCl 1,000 mg/ (Sodium Chloride) 250 mls @ 250 mls/hr IV Q24H [facility] Last Infusion: 11/19/21 14:45 Dose: Infused Ceftriaxone Sodium 2 gm/ (Dextrose) 50 mls @ 100 mls/hr IV Q24H [facility]; Protocol Last Infusion: 11/19/21 09:05 Dose: Infused Metronidazole (Flagyl) 500 mg in 100 mls @ 100 mls/hr IV Q8H [facility]; Protocol Last Admin: 11/20/21 05:29 Dose: 100 mls/hr Lisinopril (Lisinopril 20 Mg Tablet) 20 mg PO DAILY [facility] Last Admin: 11/19/21 09:07 Dose: 20 mg Ondansetron HCl (Ondansetron 4 Mg/2 Ml Vial) 4 mg IV Q6HP PRN PRN Reason: Nausea And Vomiting Pantoprazole Sodium (Pantoprazole 40 Mg Tablet) 40 mg PO QDAY [facility] Last Admin: 11/19/21 09:07 Dose: 40 mg Polyethylene Glycol (Polyethylene Glycol 3350 17 Gm Packet) 17 gm PO DAILYP PRN PRN Reason: Constipation Senna (Sennosides 1 Tablet) 2 tab PO BID [facility] Last Admin: 11/19/21 21:42 Dose: 2 tab Sodium Chloride (0.9 % Sodium Chloride 10 Ml Syringe) 10 ml IV Q8 [facility] Last Admin: 11/20/21 05:29 Dose: 10 ml Sodium Chloride (0.9 % Sodium Chloride 10 Ml Syringe) 10 ml IV UD PRN PRN Reason: FLUSH Sodium Chloride (0.9 % Sodium Chloride 10 Ml Syringe) 10 ml IV Q12 [facility] Tamsulosin HCl (Tamsulosin 0.4 Mg Capsule) 0.4 mg PO QDAY [facility] Last Admin: 11/19/21 09:06 Dose: 0.4 mg Torsemide (Torsemide 10 Mg Tablet) 40 mg PO BID@0800,1200 [facility] Last Admin: 11/19/21 12:41 Dose: 40 mg Tramadol HCl (Tramadol 50 Mg Tablet) 50 mg PO Q6HP PRN; Protocol PRN Reason: Pain Last Admin: 11/19/21 21:43 Dose: 50 mg Vancomycin HCl (Vancomycin Per Pharmacy) 1 order IV UD [facility]; Protocol Vitamin D (Vitamin D3 25 Mcg Tablet) 50 mcg PO DAILY [facility] Last Admin: 11/19/21 09:07 Dose: 50 mcg A/P Narrative A/P Narrative: Assessment: 86 year old male with a history of hypertension, chronic kidney disease stage IV, diastolic heart failure, peripheral vascular disease requiring toe amputations, DVT on chronic anticoagulation, chronic leukocytosis, polycythemia vera and chronic thrombocytosis, prostate enlargement, degenerative disc disease who lives alone and was brought to the emergency department by his daughter for evaluation of the back pain and generalized weakness. An MRI lumbar spine without contrast showed possible discitis at L3-L4. #Acute on chronic lower back pain #Possible discitis L3-L4 #Possible UTI #Generalized weakness #Recurrent falls #Skin tear over left elbow #Chronic wound on left leg #Chronic kidney disease stage IV #Chronic diastolic heart failure, stable #History of DVT on Eliquis #Essential hypertension #Chronic leukocytosis #Chronic thrombocytosis #Chronic anemia #History of polycythemia vera #Prostate enlargement #Degenerative disc disease #Peripheral vascular disease Plan -Empiric IV vancomycin, ceftriaxone, metronidazole as recommended by ID at [facility], the plan is to treat for 6 weeks. -Follow blood and urine cultures, procalcitonin level. -If blood culture showing no growth at 48 hours we will order PICC line tomorrow. -Scheduled Tylenol, as needed tramadol. -Continue home Eliquis, aspirin, atorvastatin, finasteride, gabapentin, lisin opril, Protonix, Flomax, torsemide. -Delirium bundle. -Bowel regimen. -PT, OT consult. -Regular low-sodium diet. -DVT prophylaxis: On Eliquis. -CODE STATUS: Full. -Disposition: SNF for rehab and prolonged IV antibiotic treatment. Follow-up with ID after discharge if possible, MRI lumbar spine without contrast after discharge to monitor progression of possible discitis. Time Spent With Patient Time: Total time spent is greater than 50% in coordination of care (as documented) at patient's floor/unit and/or counseling patient: QUALITY Stroke Symptom Onset Unknown: No VTE Deep Vein Thrombosis/Pulmonary Embolism Present on Admission: No
[2021-11-20] MEDS: VITAMIN D3 25 MCG TABLET PO SCH (09:58)
[2021-11-20] MEDS: SENNOSIDES 1 TABLET PO SCH ×2 (09:59→20:47)
[2021-11-20] MEDS: TAMSULOSIN 0.4 MG CAPSULE PO SCH (09:59)
[2021-11-20] MEDS: TORSEMIDE 10 MG TABLET PO SCH ×2 (09:59→11:39)
[2021-11-20] MEDS: DOCUSATE SODIUM 100 MG CAPSULE PO SCH ×2 (09:59→20:47)
[2021-11-20] MEDS: ASPIRIN 81 MG TAB.CHEW PO SCH (09:59)
[2021-11-20] MEDS: LISINOPRIL 20 MG TABLET PO SCH (09:59)
[2021-11-20] MEDS: APIXABAN 5 MG TABLET PO SCH ×2 (10:00→20:47)
[2021-11-20] MEDS: cefTRIAXone 2 GM in DEXTROSE 5% IN WATER 50 ML IV SCH (10:00)
[2021-11-20] MEDS: GABAPENTIN 300 MG CAPSULE PO SCH ×2 (10:00→20:47)
[2021-11-20] MEDS: PANTOPRAZOLE 40 MG TABLET PO SCH (10:00)
[2021-11-20] MEDS: CYANOCOBALAMIN (VITAMIN B-12) 500 MCG TABLET PO SCH (10:00)
[2021-11-20] MEDS: VANCOMYCIN 1,000 MG in 0.9 % SODIUM CHLORIDE 250 ML IV SCH (10:34)
--- NOTE | 2021-11-20 14:53 | Internal Med Progress Note ---
SUBJECTIVE Subjective Patient information: Note initiated : 11/20/21 at 2:47 pm Service Date, if different from initiated Date: [] Patient: Ildefonso Forman Jr 86 y/o M admitted on 11/17/21 for back pain, recent falls. Chief Complaint: [] Interval history: Mr. Dickson Jarrell is a 86 year old male with a history of hypertension, chronic kidney disease stage IV, diastolic heart failure, peripheral vascular disease requiring toe amputations, DVT on chronic anticoagulation, chronic leukocytosis, polycythemia vera and chronic thrombocytosis, prostate enlargement, degenerative disc disease who lives alone and was brought to the emergency department by his daughter for evaluation of the back pain and generalized weakness. The history was taken from the patient and his daughter, they say that the patient has been having severe back pain for about 2 weeks that has progressively worsened to the point of the patient is now nearly bedbound. The patient was seen in the emergency department on 10/29/2021 for a knee effusion, discharged to home after a arthrocentesis that appeared fairly benign. The patient was seen again in the emergency department on 11/13/2021 for back pain, discharged to home after evaluation which included a CT lumbar spine without contrast that showed advanced degenerative disc disease throughout the lumbar spine with spinal canal stenosis at L3-4 and L4-5. Today, the patient underwent a CT abdomen pelvis without contrast which did not show any cause of acute abdominal pain, there were multiple chronic findings but no explanation for the patient's back pain. Chest x-ray did not show any acute changes. An MRI lumbar spine without contrast showed possible L2-3 discitis, multilevel degenerative disc disease. An MRI with contrast was not due due to the patient's advanced chronic kidney disease. The patient was afebrile in the emergency department, he does have a slight increase in white blood cell count however does have chronic leukocytosis at baseline. Hospital medicine was consulted for admission. We did discuss CODE STATUS in detail prior to admission, the patient wishes to be DNR/DNI. 11/18: CRP and ESR modestly elevated, procalcitonin is significantly elevated. I discussed the patient with ID at [facility], difficult situation per ID with no good way to establish a diagnosis in this case given the patient should not receive IV gadolinium due to the CKD. ID said that even a vertebral disc biopsy would have a 30 to 40% chance of false negative results if the patient does have infectious discitis. Options are to monitor and repeat imaging versus empiric treatment for discitis. ID recommended that empiric treatment be broad-spectrum, example given was vancomycin, ceftriaxone and metronidazole. The recommended empiric antibiotic regimen was started. 11/19: No significant events overnight, afebrile. Patient says pain is well controlled with Tylenol and tramadol. Blood culture showing no growth to date after 1 day. If blood cultures negative at [address] a PICC line for long- term outpatient IV antibiotic treatment for possible discitis. 11/20: Blood culture showing no growth at day 2, pain fairly well controlled on current regimen and. PICC line ordered. White blood cell count similar to prior levels, renal function stable, urine growing Enterococcus faecalis. Move Bundy catheter. 11/21 Constitutional Vitals: Vital Signs Temp Pulse Resp BP Pulse Ox O2 Del Method 97.9 F 91 H 14 139/75 92 11/20/21 12:00 11/20/21 12:00 11/20/21 12:00 11/20/21 12:00 11/20/21 12:00 11/20/21 12:00 Period Temp Pulse Resp BP Sys/Sinha Pulse Ox O2 Del Method O2 Flow Rate Last 24 Hr 97.5 F-98.3 F 77-97 12-14 120-168/59-75 91-94 Room Air-Room Air Intake and Output 11/20/21 11/20/21 11/20/21 05:59 13:59 21:59 Intake Total 375 270 Output Total 700 350 Balance -325 -80 Intake & Output: Intake & Output 11/20/21 11/20/21 11/20/21 05:59 13:59 21:59 Intake Total 375 270 Output Total 700 350 Balance -325 -80 Intake: IV 100 150 Rocephin 2 gm In Dextrose 5% in 50 Water 50 ml @ 100 mls/hr IV Q24H [facility] Rx#:[id number] Oral 275 120 Output: Urine Catheter Amount 700 350 Other: Meal Breakfast Percent of Meal Consumed 100% Urine Appearance Clear Cloudy Urine Color Yellow Dark Yellow Uretheral ([place]) Yellow Exam: General: Alert, Awake, No acute Distress Eyes/N/T: EOMI, Head/Neck: neck supple, CV: RRR, No murmurs, Pulm: Clear b/l, no wheezing/rhonchi/rales Abd: soft, nontender, +BS x4 Ext: no clubbing/cyanosis/edema. Skin wound on left elbow covered with bandage. Neuro: Alert, no focal deficits, moves all extremities, Skin: warm/dry OBJ DATA Labs CBC & Chem 7: 11/20/21 05:37 11/20/21 05:37 Labs: Abnormal Lab Results 11/20/21 11/20/21 11/19/21 05:37 05:37 05:33 WBC 20.8 H RBC 4.02 L Hgb 10.5 L Hct 35.0 L MCH MCHC 30.0 L RDW 20.3 H Plt Count 556 H Immature Gran % (Auto) 1.8 H Neut % (Auto) 86.1 H Lymph % (Auto) 4.7 L Lymph # (Auto) 0.97 L [place] # (Auto) Immature Gran # 0.38 H Absolute Neutrophils 17.91 H ESR BUN 65 H Creatinine 1.9 H Glucose 148 H Phosphorus 5.6 H C-Reactive Protein Albumin 2.7 L Procalcitonin 0.49 H 11/18/21 11/18/21 11/18/21 05:42 05:42 05:42 WBC RBC Hgb Hct MCH MCHC RDW Plt Count Immature Gran % (Auto) Neut % (Auto) Lymph % (Auto) Lymph # (Auto) [place] # (Auto) Immature Gran # Absolute Neutrophils ESR BUN 55 H Creatinine 1.8 H Glucose 159 H Phosphorus 4.8 H C-Reactive Protein 3.00 H Albumin Procalcitonin 0.42 H 11/18/21 11/17/21 11/17/21 05:42 08:45 08:45 WBC 23.6 H RBC 4.19 L Hgb 10.8 L Hct 36.6 L MCH 25.8 L MCHC 29.5 L RDW 20.4 H Plt Count 692 H Immature Gran % (Auto) 1.7 H Neut % (Auto) 87.2 H Lymph % (Auto) 4.3 L Lymph # (Auto) 1.01 L [place] # (Auto) 0.95 H Immature Gran # 0.41 H Absolute Neutrophils 20.57 H ESR 49 H BUN Creatinine Glucose Phosphorus C-Reactive Protein Albumin Procalcitonin 0.39 H Meds: Medications Acetaminophen (Acetaminophen 500 Mg Tablet) 1,000 mg PO Q8H [facility]; Protocol Last Admin: 11/20/21 13:58 Dose: 1,000 mg Apixaban (Apixaban 5 Mg Tablet) 5 mg PO BID [facility] Last Admin: 11/20/21 10:00 Dose: 5 mg Aspirin (Aspirin 81 Mg Tab.Chew) 162 mg PO DAILY [facility] Last Admin: 11/20/21 09:59 Dose: 162 mg Atorvastatin Calcium (Atorvastatin 20 Mg Tablet) 20 mg PO [facility] Last Admin: 11/19/21 21:43 Dose: 20 mg Cyanocobalamin (Cyanocobalamin (Vitamin B-12) 500 Mcg Tablet) 500 mcg PO DAILY [facility] Last Admin: 11/20/21 10:00 Dose: 500 mcg Docusate Sodium (Docusate Sodium 100 Mg Capsule) 100 mg PO BID [facility] Last Admin: 11/20/21 09:59 Dose: 100 mg Finasteride (Finasteride 5 Mg Tablet) 5 mg PO HS [facility] Last Admin: 11/19/21 21:43 Dose: 5 mg Gabapentin (Gabapentin 300 Mg Capsule) 300 mg PO BID [facility] Last Admin: 11/20/21 10:00 Dose: 300 mg Heparin Sodium (Porcine) (Heparin Flush 10 Units/Ml 5 Ml Syringe) 2 ml IV Q12 [facility] Last Admin: 11/20/21 10:15 Dose: Not Given Vancomycin HCl 1,000 mg/ (Sodium Chloride) 250 mls @ 250 mls/hr IV Q24H [facility] Last Admin: 11/20/21 10:34 Dose: 250 mls/hr Ceftriaxone Sodium 2 gm/ (Dextrose) 50 mls @ 100 mls/hr IV Q24H [facility]; Protocol Last Infusion: 11/20/21 10:34 Dose: Infused Metronidazole (Flagyl) 500 mg in 100 mls @ 100 mls/hr IV Q8H [facility]; Protocol Last Admin: 11/20/21 13:11 Dose: 100 mls/hr Lisinopril (Lisinopril 20 Mg Tablet) 20 mg PO DAILY [facility] Last Admin: 11/20/21 09:59 Dose: 20 mg Ondansetron HCl (Ondansetron 4 Mg/2 Ml Vial) 4 mg IV Q6HP PRN PRN Reason: Nausea And Vomiting Pantoprazole Sodium (Pantoprazole 40 Mg Tablet) 40 mg PO QDAY [facility] Last Admin: 11/20/21 10:00 Dose: 40 mg Polyethylene Glycol (Polyethylene Glycol 3350 17 Gm Packet) 17 gm PO DAILYP PRN PRN Reason: Constipation Senna (Sennosides 1 Tablet) 2 tab PO BID [facility] Last Admin: 11/20/21 09:59 Dose: 2 tab Sodium Chloride (0.9 % Sodium Chloride 10 Ml Syringe) 10 ml IV Q8 [facility] Last Admin: 11/20/21 13:45 Dose: 10 ml Sodium Chloride (0.9 % Sodium Chloride 10 Ml Syringe) 10 ml IV UD PRN PRN Reason: FLUSH Sodium Chloride (0.9 % Sodium Chloride 10 Ml Syringe) 10 ml IV Q12 [facility] Last Admin: 11/20/21 10:14 Dose: 10 ml Tamsulosin HCl (Tamsulosin 0.4 Mg Capsule) 0.4 mg PO QDAY [facility] Last Admin: 11/20/21 09:59 Dose: 0.4 mg Torsemide (Torsemide 10 Mg Tablet) 40 mg PO BID@0800,1200 [facility] Last Admin: 11/20/21 11:39 Dose: 40 mg Tramadol HCl (Tramadol 50 Mg Tablet) 50 mg PO Q6HP PRN; Protocol PRN Reason: Pain Last Admin: 11/19/21 21:43 Dose: 50 mg Vancomycin HCl (Vancomycin Per Pharmacy) 1 order IV UD [facility]; Protocol Vitamin D (Vitamin D3 25 Mcg Tablet) 50 mcg PO DAILY [facility] Last Admin: 11/20/21 09:58 Dose: 50 mcg A/P Narrative A/P Narrative: A: #Acute on chronic lower back pain: #Possible discitis L3-L4: #Possible UTI: #Generalized weakness/Recurrent falls: #Skin tear over left elbow / Chronic wound on left leg: #CKD IV: #Chronic diastolic heart failure, stable: #h/o DVT: on Eliquis #HTN: #Chronic leukocytosis/thrombocytosis/anemia: #h/o polycythemia vera #BPH #Degenerative disc disease #Peripheral vascular disease Plan: -Empiric IV vancomycin, ceftriaxone, metronidazole as recommended by ID at [facility], the plan is to treat for 6 weeks. -Follow blood and urine cultures, procalcitonin level. -If blood culture showing no growth at 48 hours we will order PICC line tomorrow. -Scheduled Tylenol, as needed tramadol. -Continue home Eliquis, aspirin, atorvastatin, finasteride, gabapentin, lisinopril, Protonix, Flomax, torsemide. -Delirium bundle. -PT, OT consult. -CM for SNF -Follow-up with ID after discharge if possible -DVT prophylaxis: On Eliquis CODE STATUS: Access Consultant Spent With Patient Time: Total time spent is greater than 50% in coordination of care (as documented) at patient's floor/unit and/or counseling patient: QUALITY Stroke Symptom Onset Unknown: No VTE Deep Vein Thrombosis/Pulmonary Embolism Present on Admission: No
--- NOTE | 2021-11-20 14:55 | Discharge Summary ---
Discharge Provider Provider IMPORTANT FOLLOW-UP INFORMATION FOR PCP: Patient information: Note initiated : 11/20/21 at 2:53 pm Service Date, if different from initiated Date: [] Patient: Ildefonso Forman Jr 86 y/o M admitted on 11/17/21 for back pain, recent falls. Chief Complaint: [] Date of admission: 11/17/21 15:51 Primary care physician: Zaida Delgado Consults: 11/17/21 Consult to Physician [CONS] Stat Comment: Consulting Provider: Elie Perez Reason For Exam: Physician to Consult 11/19/21 12:24 Consult to Physician [CONS] Routine Comment: snf referral Consulting Provider: [facility] Reason For Exam: Physician to Consult COURSE Hospital Course Hospital course: Interval history: Mr. Dickson Jarrell is a 86 year old male with a history of hypertension, chronic kidney disease stage IV, diastolic heart failure, peripheral vascular disease requiring toe amputations, DVT on chronic anticoagulation, chronic leukocytosis, polycythemia vera and chronic thrombocytosis, prostate enlargement, degenerative disc disease who lives alone and was brought to the emergency department by his daughter for evaluation of the back pain and generalized weakness. The history was taken from the patient and his daughter, they say that the patient has been having severe back pain for about 2 weeks that has progressively worsened to the point of the patient is now nearly bedbound. The patient was seen in the emergency department on 10/29/2021 for a knee effusion, discharged to home after a arthrocentesis that appeared fairly benign. The patient was seen again in the emergency department on 11/13/2021 for back pain, discharged to home after evaluation which included a CT lumbar spine without contrast that showed advanced degenerative disc disease throughout the lumbar spine with spinal canal stenosis at L3-4 and L4-5. Today, the patient underwent a CT abdomen pelvis without contrast which did not show any cause of acute abdominal pain, there were multiple chronic findings but no explanation for the patient's back pain. Chest x-ray did not show any acute changes. An MRI lumbar spine without contrast showed possible L2-3 discitis, multilevel degenerative disc disease. An MRI with contrast was not due due to the patient's advanced chronic kidney disease. The patient was afebrile in the emergency department, he does have a slight increase in white blood cell count however does have chronic leukocytosis at baseline. Hospital medicine was consulted for admission. We did discuss CODE STATUS in detail prior to admission, the patient wishes to be DNR/DNI. 11/18: CRP and ESR modestly elevated, procalcitonin is significantly elevated. I discussed the patient with ID at [facility], difficult situation per ID with no good way to establish a diagnosis in this case given the patient should not receive IV gadolinium due to the CKD. ID said that even a vertebral disc biopsy would have a 30 to 40% chance of false negative results if the patient does have infectious discitis. Options are to monitor and repeat imaging versus empiric treatment for discitis. ID recommended that empiric treatment be broad-spectrum, example given was vancomycin, ceftriaxone and metronidazole. The recommended empiric antibiotic regimen was started. 11/19: No significant events overnight, afebrile. Patient says pain is well controlled with Tylenol and tramadol. Blood culture showing no growth to date after 1 day. If blood cultures negative at [address] a PICC line for long- term outpatient IV antibiotic treatment for possible discitis. 11/20: Blood culture showing no growth at day 2, pain fairly well controlled on current regimen and. PICC line ordered. White blood cell count similar to prior levels, renal function stable, urine growing Enterococcus faecalis. Move Bundy catheter. A: #Acute on chronic lower back pain: #Possible discitis L3-L4: #Possible UTI: #Generalized weakness/Recurrent falls: #Skin tear over left elbow / Chronic wound on left leg: #CKD IV: #Chronic diastolic heart failure, stable: #h/o DVT: on Eliquis #HTN: #Chronic leukocytosis/thrombocytosis/anemia: #h/o polycythemia vera #BPH #Degenerative disc disease #Peripheral vascular disease Plan: -Empiric IV vancomycin, ceftriaxone, metronidazole as recommended by ID at [facility], the plan is to treat for 6 weeks. -Follow-up with ID after discharge if possible -DVT prophylaxis: On Eliquis Discharge diagnosis: Discitis Secondary discharge diagnosis: Back pain UTI weakness skin tear chronic kidney disease stage IV diastolic heart failure DVT hypertension chronic leukocytosis thrombocytopenia anemia peripheral vascular disease Time Spent with Patient Time attestation: Total time spent providing and/or coordinating discharge services: Time spent: Greater than 30 minutes EXAM Constitutional Vitals: Temp Pulse Resp BP Pulse Ox O2 Del Method 97.9 F 91 H 14 139/75 92 09/08/22 12:00 11/20/21 12:00 11/20/21 12:00 11/20/21 12:00 11/20/21 12:00 11/20/21 12:00 Discharge Data Data Completed and Pending Labs on day of discharge: Labs from last 24 hours 11/20/21 11/20/21 11/20/21 05:38 05:37 05:37 WBC 20.8 H RBC 4.02 L Hgb 10.5 L Hct 35.0 L MCV 87.1 MCH 26.1 MCHC 30.0 L RDW 20.3 H Plt Count 556 H MPV 9.9 Immature Gran % (Auto) 1.8 H Neut % (Auto) 86.1 H Lymph % (Auto) 4.7 L Dickens % (Auto) 4.0 Eos % (Auto) 3.0 Baso % (Auto) 0.4 Lymph # (Auto) 0.97 L Dickens # (Auto) 0.83 Eos # (Auto) 0.62 Baso # (Auto) 0.09 Immature Gran # 0.38 H Absolute Neutrophils 17.91 H Sodium 138 Potassium 4.0 Chloride 102 Carbon Dioxide 23 Anion Gap 13.0 BUN 65 H Creatinine 1.9 H GFR Calculation 31 Glucose 148 H Calcium 9.0 Phosphorus 5.6 H Albumin 2.7 L Procalcitonin Pending Preliminary micro results at discharge 11/17/21 15:07 Blood Culture - Preliminary Blood 11/17/21 15:01 Blood Culture - Preliminary Blood Discharge Plan Patient/Caregiver Discharge Instructions Activity: increase activity as tolerated Diet: Cardiac Activity Restrictions/Additional Instructions: Referral to see infectious disease in 3-14 days. PICC line care until antibiotic course finishes on 12/30/2021. Weekly CBC/CMP while on IV abx, send results to PCP. Prescriptions: Continued cholecalciferol (vitamin D3) 2,000 unit capsule 2,000 unit PO QDAY Qty: 90 4RF tamsulosin [Flomax] 0.4 mg capsule 0.4 mg PO QDAY apixaban 5 mg tablet 5 mg PO BID Rx Instructions: 10 mg orally bid for 7 days then mg orally bid finasteride 5 mg tablet 5 mg PO HS docusate sodium 100 mg capsule 100 mg PO QDAY pantoprazole 40 mg tablet,delayed release (DR/EC) 40 mg PO QDAY Label Comments: Not sure what doctor order it. magnesium oxide 400 mg magnesium tablet 400 mg PO QDAY Qty: 90 3RF atorvastatin 20 MG tablet 20 mg PO HS lisinopril 20 MG tablet 20 mg PO DAILY gabapentin 300 mg capsule 300 mg PO BID Rx Instructions: takes 600 mg in the morning and 300 in the evening. cyanocobalamin (vitamin B-12) Tablet,Chewable 1 tab PO QDAY aspirin 81 mg tablet 162 mg PO QDAY torsemide 10 mg tablet 40 mg PO BID Rx Instructions: AM and noon Follow Up Plan Follow up with: Zaida Delgado ARNP [Primary Care Provider] - Patient Disposition: Xfer SNF Prognosis: Fair Rehab Potential: Fair I certify that the patient requires SNF services: Yes Overall status at discharge: patient is progressing back to baseline QUALITY VTE Deep Vein Thrombosis/Pulmonary Embolism Present on Admission: No
[2021-11-20] MEDS: FINASTERIDE 5 MG TABLET PO SCH (20:47)
[2021-11-20] MEDS: ATORVASTATIN 20 MG TABLET PO SCH (20:47)
[2021-11-21] MEDS: 0.9 % SODIUM CHLORIDE 10 ML SYRINGE IV SCH ×3 (05:03→14:57)
[2021-11-21] MEDS: metroNIDAZOLE 500 MG/100 ML BAG IV SCH ×2 (05:03→14:57)
[2021-11-21] MEDS: ACETAMINOPHEN 500 MG TABLET PO SCH ×2 (05:40→15:13)
[2021-11-21 07:00] LABS: Basophils % (Auto) 0.5 % (0.0-2.0); Eosinophils % (Auto) 2.9 % (0.0-7.0); Hematocrit 36.2 % (40.1-51.0); Lymphocytes # (Auto) 0.91 K/mcL (1.50-4.80); Lymphocytes % (Auto) 4.3 % (15.5-49.0); Mean Cell Volume 87.4 fL (80.0-100.0); Mean Corpuscular HGB Conc 30.4 g/dL (31.0-36.0); Mean Platelet Volume 10.1 fL (7.4-10.4); Monocytes # (Auto) 0.77 K/mcL (0.10-0.90); Monocytes % (Auto) 3.7 % (1.0-12.0); Neutrophils % (Auto) 87.5 % (38.0-78.0); Platelet Count 559 K/mcL (140-440); RBC 4.14 M/mcL (4.63-6.08); Red Cell Distribution Width 20.3 % (11.5-14.5); WBC 20.9 K/mcL (4.5-11.0)
[2021-11-21] MEDS: TORSEMIDE 10 MG TABLET PO SCH (07:31)
[2021-11-21] MEDS: cefTRIAXone 2 GM in DEXTROSE 5% IN WATER 50 ML IV SCH (07:31)
[2021-11-21 07:51] LABS: ALT/SGPT < 5 U/L (<40); AST/SGOT 10 U/L (<40); Albumin 2.6 gm/dL (3.2-5.2); Albumin/Globulin Ratio 0.8 (1.0-2.3); Alkaline Phosphatase 92 U/L (39-117); Bilirubin,Direct < 0.2 mg/dL (0-0.3); Bilirubin,Total 0.2 mg/dL (0.1-1.0); Blood Urea Nitrogen 66 mg/dL (8-23); Calcium 8.9 mg/dL (8.6-10.4); Carbon Dioxide 23 mmol/L (22-30); Chloride 103 mmol/L (96-108); Globulin 3.2 gm/dL (2.2-3.7); Glomerular Filtration Rate 29; Glucose 163 mg/dL (70-105); Lactate Dehydrogenase 247 U/L (135-225); Phosphorous 5.2 mg/dL (2.5-4.5); Triglycerides 237 mg/dL (<150); Uric Acid 14.1 mg/dL (2.5-8.0)
--- NOTE | 2021-11-21 08:11 | Internal Med Progress Note ---
SUBJECTIVE Subjective Patient information: Note initiated : 11/21/21 at 8:08 am Service Date, if different from initiated Date: [] Patient: Ildefonso Forman Jr 86 y/o M admitted on 11/17/21 for back pain, recent falls. Chief Complaint: [] Interval history: Mr. Dickson Jarrell is a 86 year old male with a history of hypertension, chronic kidney disease stage IV, diastolic heart failure, peripheral vascular disease requiring toe amputations, DVT on chronic anticoagulation, chronic leukocytosis, polycythemia vera and chronic thrombocytosis, prostate enlargement, degenerative disc disease who lives alone and was brought to the emergency department by his daughter for evaluation of the back pain and generalized weakness. The history was taken from the patient and his daughter, they say that the patient has been having severe back pain for about 2 weeks that has progressively worsened to the point of the patient is now nearly bedbound. The patient was seen in the emergency department on 10/29/2021 for a knee effusion, discharged to home after a arthrocentesis that appeared fairly benign. The patient was seen again in the emergency department on 11/13/2021 for back pain, discharged to home after evaluation which included a CT lumbar spine without contrast that showed advanced degenerative disc disease throughout the lumbar spine with spinal canal stenosis at L3-4 and L4-5. Today, the patient underwent a CT abdomen pelvis without contrast which did not show any cause of acute abdominal pain, there were multiple chronic findings but no explanation for the patient's back pain. Chest x-ray did not show any acute changes. An MRI lumbar spine without contrast showed possible L2-3 discitis, multilevel degenerative disc disease. An MRI with contrast was not due due to the patient's advanced chronic kidney disease. The patient was afebrile in the emergency department, he does have a slight increase in white blood cell count however does have chronic leukocytosis at baseline. Hospital medicine was consulted for admission. We did discuss CODE STATUS in detail prior to admission, the patient wishes to be DNR/DNI. 11/18: CRP and ESR modestly elevated, procalcitonin is significantly elevated. I discussed the patient with ID at [facility], difficult situation per ID with no good way to establish a diagnosis in this case given the patient should not receive IV gadolinium due to the CKD. ID said that even a vertebral disc biopsy would have a 30 to 40% chance of false negative results if the patient does have infectious discitis. Options are to monitor and repeat imaging versus empiric treatment for discitis. ID recommended that empiric treatment be broad-spectrum, example given was vancomycin, ceftriaxone and metronidazole. The recommended empiric antibiotic regimen was started. 11/19: No significant events overnight, afebrile. Patient says pain is well controlled with Tylenol and tramadol. Blood culture showing no growth to date after 1 day. If blood cultures negative at [address] a PICC line for long- term outpatient IV antibiotic treatment for possible discitis. 11/20: Blood culture showing no growth at day 2, pain fairly well controlled on current regimen and. PICC line ordered. White blood cell count similar to prior levels, renal function stable, urine growing Enterococcus faecalis. Move Bundy catheter. 11/21 No overnight event or new complaints. Continue antibiotics per infectious disease at [place]. Awaiting PICC line placement. Daughter was asking for referral to pain clinic for his chronic low back and leg pain. Patient denies any chest pain coughing shortness of breath or pain. Daughter did not think patient had a bowel movement since Wednesday. Now looking at the nurses note looks like he did have 1 last night small brown soft stool. Review of Systems: denies headache/fever/chills/nausea/vomiting/chest or abdominal pain/cough/dyspnea/diarrhea. Otherwise see above. Constitutional Vitals: Vital Signs Temp Pulse Resp BP Pulse Ox O2 Del Method O2 Flow Rate 97.6 F 83 14 121/66 91 91 11/21/21 06:36 11/21/21 06:36 11/21/21 07:03 11/21/21 06:36 11/21/21 07:03 11/21/21 07:03 11/21/21 06:36 Period Temp Pulse Resp BP Sys/Sinha Pulse Ox O2 Del Method O2 Flow Rate Last 24 Hr 96.7 F-98.7 F 80-93 14-17 110-139/63-82 91-94 Room Air-Room Air 91 Intake and Output 11/20/21 11/21/21 11/21/21 21:59 05:59 13:59 Intake Total 1530 100 100 Output Total 350 6 Balance 1180 94 100 Weight 78.29 kg Intake & Output: Intake & Output 11/20/21 11/21/21 11/21/21 21:59 05:59 13:59 Intake Total 1530 100 100 Output Total 350 6 Balance 1180 94 100 Weight 78.29 kg Intake: IV 100 100 100 Oral 1430 Output: Void Amount 350 # of times incontinent of urine 5 Urine/Stool Mix 1 Other: Meal Dinner Percent of Meal Consumed 25% Feeding Ability Assist with Tray Set Up Urine Appearance Cloudy Clear Urine Color Yellow Yellow Urine Odor Normal Normal Stool Size Small Stool Color Brown Stool Consistency Soft # Voids 1 # Bowel Movements 1 # of times incontinent of 1 Bowels Exam: General: Alert, Awake, No acute Distress Eyes/N/T: EOMI, Head/Neck: neck supple, CV: RRR, No murmurs, Pulm: Clear b/l, no wheezing/rhonchi/rales Abd: soft, nontender, +BS x4 Ext: no clubbing/cyanosis/edema. Skin wound on left elbow covered with bandage. Neuro: Alert, no focal deficits, moves all extremities, Skin: warm/dry OBJ DATA Labs CBC & Chem 7: 11/21/21 05:58 11/21/21 05:58 Labs: Abnormal Lab Results 11/21/21 11/21/21 11/20/21 05:58 05:58 05:38 WBC 20.9 H RBC 4.14 L Hgb 11.0 L Hct 36.2 L MCHC 30.4 L RDW 20.3 H Plt Count 559 H Immature Gran % (Auto) 1.1 H Neut % (Auto) 87.5 H Lymph % (Auto) 4.3 L Lymph # (Auto) 0.91 L Immature Gran # 0.22 H Absolute Neutrophils 18.34 H BUN 66 H Creatinine 2.0 H Glucose 163 H Uric Acid 14.1 H Phosphorus 5.2 H Lactate Dehydrogenase 247 H Total Protein 5.8 L Albumin 2.6 L Albumin/Globulin Ratio 0.8 L Triglycerides 237 H Procalcitonin 0.44 H 11/20/21 11/20/21 11/19/21 05:37 05:37 05:33 WBC 20.8 H RBC 4.02 L Hgb 10.5 L Hct 35.0 L MCHC 30.0 L RDW 20.3 H Plt Count 556 H Immature Gran % (Auto) 1.8 H Neut % (Auto) 86.1 H Lymph % (Auto) 4.7 L Lymph # (Auto) 0.97 L Immature Gran # 0.38 H Absolute Neutrophils 17.91 H BUN 65 H Creatinine 1.9 H Glucose 148 H Uric Acid Phosphorus 5.6 H Lactate Dehydrogenase Total Protein Albumin 2.7 L Albumin/Globulin Ratio Triglycerides Procalcitonin 0.49 H Meds: Medications Acetaminophen (Acetaminophen 500 Mg Tablet) 1,000 mg PO Q8H [facility]; Protocol Last Admin: 11/21/21 05:40 Dose: 1,000 mg Apixaban (Apixaban 5 Mg Tablet) 5 mg PO BID [facility] Last Admin: 11/20/21 20:47 Dose: 5 mg Aspirin (Aspirin 81 Mg Tab.Chew) 162 mg PO DAILY [facility] Last Admin: 11/20/21 09:59 Dose: 162 mg Atorvastatin Calcium (Atorvastatin 20 Mg Tablet) 20 mg PO HS [facility] Last Admin: 11/20/21 20:47 Dose: 20 mg Cyanocobalamin (Cyanocobalamin (Vitamin B-12) 500 Mcg Tablet) 500 mcg PO DAILY [facility] Last Admin: 11/20/21 10:00 Dose: 500 mcg Docusate Sodium (Docusate Sodium 100 Mg Capsule) 100 mg PO BID [facility] Last Admin: 11/20/21 20:47 Dose: 100 mg Finasteride (Finasteride 5 Mg Tablet) 5 mg PO HS [facility] Last Admin: 11/20/21 20:47 Dose: 5 mg Gabapentin (Gabapentin 300 Mg Capsule) 300 mg PO BID [facility] Last Admin: 11/20/21 20:47 Dose: 300 mg Heparin Sodium (Porcine) (Heparin Flush 10 Units/Ml 5 Ml Syringe) 2 ml IV Q12 [facility] Last Admin: 11/20/21 20:47 Dose: Not Given Vancomycin HCl 1,000 mg/ (Sodium Chloride) 250 mls @ 250 mls/hr IV Q24H [facility] Last Infusion: 11/20/21 12:00 Dose: Infused Ceftriaxone Sodium 2 gm/ (Dextrose) 50 mls @ 100 mls/hr IV Q24H [facility]; Protocol Last Admin: 11/21/21 07:31 Dose: 100 mls/hr Metronidazole (Flagyl) 500 mg in 100 mls @ 100 mls/hr IV Q8H [facility]; Protocol Last Infusion: 11/21/21 06:05 Dose: Infused Lisinopril (Lisinopril 20 Mg Tablet) 20 mg PO DAILY [facility] Last Admin: 11/20/21 09:59 Dose: 20 mg Ondansetron HCl (Ondansetron 4 Mg/2 Ml Vial) 4 mg IV Q6HP PRN PRN Reason: Nausea And Vomiting Pantoprazole Sodium (Pantoprazole 40 Mg Tablet) 40 mg PO QDAY [facility] Last Admin: 11/20/21 10:00 Dose: 40 mg Polyethylene Glycol (Polyethylene Glycol 3350 17 Gm Packet) 17 gm PO DAILYP PRN PRN Reason: Constipation Senna (Sennosides 1 Tablet) 2 tab PO BID [facility] Last Admin: 11/20/21 20:47 Dose: 2 tab Sodium Chloride (0.9 % Sodium Chloride 10 Ml Syringe) 10 ml IV Q8 [facility] Last Admin: 11/21/21 05:03 Dose: 10 ml Sodium Chloride (0.9 % Sodium Chloride 10 Ml Syringe) 10 ml IV UD PRN PRN Reason: FLUSH Sodium Chloride (0.9 % Sodium Chloride 10 Ml Syringe) 10 ml IV Q12 [facility] Last Admin: 11/20/21 20:48 Dose: 10 ml Tamsulosin HCl (Tamsulosin 0.4 Mg Capsule) 0.4 mg PO QDAY [facility] Last Admin: 11/20/21 09:59 Dose: 0.4 mg Torsemide (Torsemide 10 Mg Tablet) 40 mg PO BID@0800,1200 [facility] Last Admin: 11/21/21 07:31 Dose: 40 mg Tramadol HCl (Tramadol 50 Mg Tablet) 50 mg PO Q6HP PRN; Protocol PRN Reason: Pain Last Admin: 11/19/21 21:43 Dose: 50 mg Vancomycin HCl (Vancomycin Per Pharmacy) 1 order IV [facility]; Protocol Vitamin D (Vitamin D3 25 Mcg Tablet) 50 mcg PO DAILY [facility] Last Admin: 11/20/21 09:58 Dose: 50 mcg A/P Narrative A/P Narrative: A: #Acute on chronic lower back pain: #Possible discitis L3-L4: #UTI (Enterococcus faecium): #Generalized weakness/Recurrent falls: #Skin tear over left elbow / Chronic wound on left leg: #CKD IV: #Chronic diastolic heart failure, stable: #h/o DVT: on Eliquis #HTN: #Chronic leukocytosis/thrombocytosis/anemia: #h/o polycythemia vera #BPH #Degenerative disc disease #Peripheral vascular disease Plan: -Empiric IV vancomycin, ceftriaxone, metronidazole as recommended by ID at [facility], the plan is to treat for 6 weeks. -Follow blood and urine cultures, procalcitonin level. -place PICC line -Scheduled Tylenol, as needed tramadol. -Continue home Eliquis, aspirin, atorvastatin, finasteride, gabapentin, lisinopril, Protonix, Flomax, torsemide. -Delirium bundle. -PT, OT consult. 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
--- NOTE | 2021-11-21 08:21 | Discharge Summary ---
Discharge Provider Provider IMPORTANT FOLLOW-UP INFORMATION FOR PCP: Patient information: Note initiated : 11/21/21 at 8:19 am Service Date, if different from initiated Date: [] Patient: Ildefonso Forman Jr 86 y/o M admitted on 11/17/21 for back pain, recent falls. Chief Complaint: [] Date of admission: 11/17/21 15:51 Discharge date: 11/21/21 Primary care physician: Zaida Delgado Consults: 11/17/21 Consult to Physician [CONS] Stat Comment: Consulting Provider: Elie Perez Reason For Exam: Physician to Consult 11/19/21 12:24 Consult to Physician [CONS] Routine Comment: snf referral Consulting Provider: [facility] Reason For Exam: Physician to Consult COURSE Hospital Course Hospital course: Interval history: Mr. Dickson Jarrell is a 86 year old male with a history of hypertension, chronic kidney disease stage IV, diastolic heart failure, peripheral vascular disease requiring toe amputations, DVT on chronic anticoagulation, chronic leukocytosis, polycythemia vera and chronic thrombocytosis, prostate enlargement, degenerative disc disease who lives alone and was brought to the emergency department by his daughter for evaluation of the back pain and generalized weakness. The history was taken from the patient and his daughter, they say that the patient has been having severe back pain for about 2 weeks that has progressively worsened to the point of the patient is now nearly bedbound. The patient was seen in the emergency department on 10/29/2021 for a knee effusion, discharged to home after a arthrocentesis that appeared fairly benign. The patient was seen again in the emergency department on 11/13/2021 for back pain, discharged to home after evaluation which included a CT lumbar spine without contrast that showed advanced degenerative disc disease throughout the lumbar spine with spinal canal stenosis at L3-4 and L4-5. Today, the patient underwent a CT abdomen pelvis without contrast which did not show any cause of acute abdominal pain, there were multiple chronic findings but no explanation for the patient's back pain. Chest x-ray did not show any acute changes. An MRI lumbar spine without contrast showed possible L2-3 discitis, multilevel degenerative disc disease. An MRI with contrast was not due due to the patient's advanced chronic kidney disease. The patient was afebrile in the emergency department, he does have a slight increase in white blood cell count however does have chronic leukocytosis at baseline. Hospital medicine was consulted for admission. We did discuss CODE STATUS in detail prior to admission, the patient wishes to be DNR/DNI. 11/18: CRP and ESR modestly elevated, procalcitonin is significantly elevated. I discussed the patient with ID at [facility], difficult situation per ID with no good way to establish a diagnosis in this case given the patient should not receive IV gadolinium due to the CKD. ID said that even a vertebral disc biopsy would have a 30 to 40% chance of false negative results if the patient does have infectious discitis. Options are to monitor and repeat imaging versus empiric treatment for discitis. ID recommended that empiric treatment be broad-spectrum, example given was vancomycin, ceftriaxone and metronidazole. The recommended empiric antibiotic regimen was started. 11/19: No significant events overnight, afebrile. Patient says pain is well controlled with Tylenol and tramadol. Blood culture showing no growth to date after 1 day. If blood cultures negative at [address] a PICC line for long- term outpatient IV antibiotic treatment for possible discitis. 11/20: Blood culture showing no growth at day 2, pain fairly well controlled on current regimen and. PICC line ordered. White blood cell count similar to prior levels, renal function stable, urine growing Enterococcus faecalis. Move Bundy catheter. 11/21 No overnight event or new complaints. Continue antibiotics per infectious disease at [facility]. Awaiting PICC line placement. Daughter was asking for referral to pain clinic for his chronic low back and leg pain. Patient denies any chest pain coughing shortness of breath or pain. Daughter did not think patient had a bowel movement since Wednesday. Now looking at the nurses note looks like he did have 1 last night small brown soft stool. A: #Acute on chronic lower back pain: #Possible discitis L3-L4: #UTI (Enterococcus faecium): #Generalized weakness/Recurrent falls: #Skin tear over left elbow / Chronic wound on left leg: #CKD IV: #Chronic diastolic heart failure, stable: #h/o DVT: on Eliquis #HTN: #Chronic leukocytosis/thrombocytosis/anemia: #h/o polycythemia vera #BPH #Degenerative disc disease #Peripheral vascular disease Plan: -Empiric IV vancomycin, ceftriaxone, metronidazole as recommended by ID at [facility], the plan is to treat for 6 weeks. -Follow-up with ID after discharge if possible Discharge diagnosis: Discitis Enterococcus UTI Secondary discharge diagnosis: Chronic back pain UTI weakness skin tear chronic kidney disease stage IV diastolic heart failure DVT hypertension chronic leukocytosis thrombocytopenia anemia peripheral vascular disease Time Spent with Patient Time attestation: Total time spent providing and/or coordinating discharge services: Time spent: Greater than 30 minutes EXAM Constitutional Vitals: Temp Pulse Resp BP Pulse Ox O2 Del Method O2 Flow Rate 97.6 F 83 14 121/66 91 91 11/21/21 06:36 11/21/21 06:36 11/21/21 07:03 11/21/21 06:36 11/21/21 07:03 11/21/21 07:03 11/21/21 06:36 Discharge Data Data Completed and Pending Labs on day of discharge: Labs from last 24 hours 11/21/21 11/21/21 11/21/21 05:58 05:58 05:58 WBC 20.9 H RBC 4.14 L Hgb 11.0 L Hct 36.2 L MCV 87.4 MCH 26.6 MCHC 30.4 L RDW 20.3 H Plt Count 559 H MPV 10.1 Immature Gran % (Auto) 1.1 H Neut % (Auto) 87.5 H Lymph % (Auto) 4.3 L [place] % (Auto) 3.7 Eos % (Auto) 2.9 Baso % (Auto) 0.5 Lymph # (Auto) 0.91 L [place] # (Auto) 0.77 Eos # (Auto) 0.60 Baso # (Auto) 0.10 Immature Gran # 0.22 H Absolute Neutrophils 18.34 H Platelet Estimate Pending RBC Morphology Pending ESR Sodium 140 Potassium 4.0 Chloride 103 Carbon Dioxide 23 Anion Gap 14.0 BUN 66 H Creatinine 2.0 H GFR Calculation 29 Glucose 163 H Uric Acid 14.1 H Calcium 8.9 Phosphorus 5.2 H Magnesium 2.0 Total Bilirubin 0.2 Direct Bilirubin < 0.2 GGT 26 AST 10 ALT < 5 Alkaline Phosphatase 92 Lactate Dehydrogenase 247 H Total Protein 5.8 L Albumin 2.6 L Globulin 3.2 Albumin/Globulin Ratio 0.8 L Triglycerides 237 H Procalcitonin 11/21/21 11/20/21 05:57 05:38 WBC RBC Hgb Hct MCV MCH MCHC RDW Plt Count MPV Immature Gran % (Auto) Neut % (Auto) Lymph % (Auto) [place] % (Auto) Eos % (Auto) Baso % (Auto) Lymph # (Auto) [place] # (Auto) Eos # (Auto) Baso # (Auto) Immature Gran # Absolute Neutrophils Platelet Estimate RBC Morphology ESR Pending Sodium Potassium Chloride Carbon Dioxide Anion Gap BUN Creatinine GFR Calculation Glucose Uric Acid Calcium Phosphorus Magnesium Total Bilirubin Direct Bilirubin GGT AST ALT Alkaline Phosphatase Lactate Dehydrogenase Total Protein Albumin Globulin Albumin/Globulin Ratio Triglycerides Procalcitonin 0.44 H Preliminary micro results at discharge 11/17/21 15:07 Blood Culture - Preliminary Blood 11/17/21 15:01 Blood Culture - Preliminary Blood Discharge Plan Patient/Caregiver Discharge Instructions Activity: increase activity as tolerated Diet: Cardiac Activity Restrictions/Additional Instructions: Referral to see infectious disease in 3-14 days. PICC line care until antibiotic course finishes on 12/30/2021. Weekly CBC/CMP while on IV abx, send results to PCP. Referral to see pain clinic in 3-14 days for chronic low back and leg pain. Restart Torsemide 11/23/2021. Prescriptions: New ceftriaxone 2 gram recon soln 2 g IV QDAY Qty: 1 0RF metronidazole 500 mg tablet 500 mg PO Q8H Qty: 47 0RF vancomycin 1,000 mg recon soln 1,000 mg IV Q12 Qty: 1 0RF Rx Instructions: Pharmacy to dose Continued cholecalciferol (vitamin D3) 2,000 unit capsule 2,000 unit PO QDAY Qty: 90 4RF tamsulosin [Flomax] 0.4 mg capsule 0.4 mg PO QDAY apixaban 5 mg tablet 5 mg PO BID Rx Instructions: 10 mg orally bid for 7 days then mg orally bid finasteride 5 mg tablet 5 mg PO HS docusate sodium 100 mg capsule 100 mg PO QDAY pantoprazole 40 mg tablet,delayed release (DR/EC) 40 mg PO QDAY Label Comments: Not sure what doctor order it. magnesium oxide 400 mg magnesium tablet 400 mg PO QDAY Qty: 90 3RF atorvastatin 20 MG tablet 20 mg PO HS lisinopril 20 MG tablet 20 mg PO DAILY gabapentin 300 mg capsule 600 mg PO AC Rx Instructions: takes 600 mg in the morning and 300 in the evening. cyanocobalamin (vitamin B-12) Tablet,Chewable 1 tab PO QDAY aspirin 81 mg tablet 162 mg PO QDAY gabapentin 300 mg Tablet 300 mg PO QHS torsemide 10 mg tablet 40 mg PO BID Rx Instructions: AM and noon Follow Up Plan Follow up with: Zaida Delgado ARNP [Primary Care Provider] - Patient Disposition: Xfer SNF Prognosis: Fair Rehab Potential: Fair I certify that the patient requires SNF services: Yes Overall status at discharge: patient is progressing back to baseline Discharge Orders: Discharge Order (Routine); Ordered 11/21/21 Ordered By: Ramon Blanco [facility] VTE Deep Vein Thrombosis/Pulmonary Embolism Present on Admission: No
[2021-11-21] MEDS: SENNOSIDES 1 TABLET PO SCH (08:50)
[2021-11-21] MEDS: TAMSULOSIN 0.4 MG CAPSULE PO SCH (08:50)
[2021-11-21] MEDS: CYANOCOBALAMIN (VITAMIN B-12) 500 MCG TABLET PO SCH (08:50)
[2021-11-21] MEDS: VITAMIN D3 25 MCG TABLET PO SCH (08:50)
[2021-11-21] MEDS: APIXABAN 5 MG TABLET PO SCH (08:50)
[2021-11-21] MEDS: GABAPENTIN 300 MG CAPSULE PO SCH (08:50)
[2021-11-21] MEDS: DOCUSATE SODIUM 100 MG CAPSULE PO SCH (08:50)
[2021-11-21] MEDS: traMADol 50 MG TABLET PO PRN (08:51)
[2021-11-21] MEDS: PANTOPRAZOLE 40 MG TABLET PO SCH (08:51)
[2021-11-21 08:57] LABS: Anisocytosis 1+ (None Seen); Band Neutrophils % 1 % (0-10); Eosinophils % (Manual) 4 % (0-7); Hypochromasia 1+ (None Seen); Lymphocytes % 5 % (15-49); Monocytes % (Manual) 5 % (1-12); Platelet Estimate INCREASED (Normal); Poikilocytosis 1+ (None Seen); Polychromasia 1+ (None Seen); RBC Morphology ABNORMAL (Normal); Segmented Neutrophils % 85 % (38-78)
[2021-11-21] MEDS: ASPIRIN 81 MG TAB.CHEW PO SCH (08:57)
[2021-11-21] MEDS ORDERED: POLYETHYLENE GLYCOL 3350 17 GM PACKET PO ONE (09:06)
[2021-11-21] MEDS ORDERED: GABAPENTIN 300 MG CAPSULE PO ONE (09:10)
[2021-11-21] MEDS: VANCOMYCIN 1,000 MG in 0.9 % SODIUM CHLORIDE 250 ML IV SCH (09:55)
[2021-11-21] MEDS ORDERED: COVID-19 VACC, MRNA(PFIZER)/PF 30 MCG/0.3 ML VIAL IM ONE (14:53)
--- NOTE | 2021-11-21 14:53 | XRay Report ---
CLINICAL INFORMATION: PICC line placement COMPARISON: None. TECHNIQUE: Portable FINDINGS: PICC line tip overlies the lateral right subclavian vein region The heart size, mediastinum and pulmonary vessels are unremarkable. The lungs are clear. There are no effusions. The bones and soft tissues are within normal limits. IMPRESSION: Cardiopulmonary disease. PICC line tip overlying the lateral right subclavian vein region. Interpreted and Authenticated by: Reji Kim 11/21/21
[2021-11-22] MEDS ORDERED: LISINOPRIL 20 MG TABLET PO SCH (09:00)
== END 2021-11-21 16:45 | DRG 552 ==
LOC: ED 07:45 → MEDSUR 15:51
PROVIDERS: ADMIT Internal Medicine; ATTEND Internal Medicine